=== PATIENT | female | born 1970 | race Caucasian/White ===

== ENCOUNTER 2020-08-10 09:49 | Outpatient (REF) | payer OTHER, SELFPAY ==
[2020-08-12 19:52] LABS: TS Negative Control Passed; TS Panel A 0; TS Panel B 0; TS Positive Control Passed; TSpotTB Negative (SeeBelow)
== END 2020-08-10 09:50 | disposition home or self-care (01) ==
LOC: HO.HMGCLDS 09:49
PROVIDERS: PCP Internal Medicine; Visit Provider Nurse Practitioner Family
DX: Z11.7 Encounter for testing for latent tuberculosis infection (principal)
CPT/HCPCS: 36415; 86481

== ENCOUNTER → 2020-08-20 09:19 | Outpatient (BNVA) | payer OTHER, SELFPAY | PROVIDERS: PCP Internal Medicine; Visit Provider Advanced Practice Midwife | DX: Z01.419 Encounter for gynecological examination (general) (routine) without abnormal findings (principal); E66.9 Obesity, unspecified; N89.8 Other specified noninflammatory disorders of vagina | CPT/HCPCS: 87210 ==

== ENCOUNTER 2020-08-28 09:06 | Outpatient (REF) | payer OTHER, SELFPAY ==
--- NOTE | ~2020-08-28 | XR_ITS ---
EXAMINATION: XR HAND, LEFT CLINICAL INFORMATION: Thumb pain. COMPARISON: None TECHNIQUE: PA, lateral, and oblique views of the left hand. 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 Mild arthritic changes in some of the IP joints of the fingers, including the 2nd, 3rd, 5th DIP joint. No fracture or dislocation. XR/XR hand LT min 3V IMPRESSION: Arthritis as detailed above. 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
[2020-08-28 11:12] LABS: MANUAL DIFF FLAG NO
[2020-08-28 11:27] LABS: Glucose Urine UA >=1000 MG/DL (NEG); Leukocyte Esterase Urine NEG (NEG); Nitrite Urine NEG (NEG); PH 6.5 (5.0-8.0); Specific Gravity - Urine 1.015 (1.005-1.025); Urine Blood NEG (NEG); Urine Ketones NEG (NEG); Urine Protein NEG (NEG-TRACE)
[2020-08-28 11:29] LABS: Appearance Urine CLEAR; Color Urine YELLOW
[2020-08-28 11:32] LABS: Basophils Percent Auto 0.3 % (0-2); Eosinophils Absolute Auto 0.1 X10*3/uL (0.0-0.4); Eosinophils Percent Auto 1.4 % (0-4); Hematocrit 43.2 % (37-47); Hemoglobin 13.2 g/dl (12.0-16.0); Imm Gran Abs Auto 0.02 X10*3/uL (0.00-0.03); Imm Gran Pct Auto 0.3 % (0.0-0.4); Lymphocytes Percent Auto 25.9 % (20-40); Mean Corpuscular HGB Conc 30.6 g/dl (31.0-35.0); Mean Corpuscular Hemoglobin 22.5 pg (27.0-33.0); Mean Corpuscular Volume 73.6 fL (80-98); Mean Platelet Volume 11.1 fL (9.4-12.3); Monocytes Absolute Auto 0.6 X10*3/uL (0.1-1.2); Monocytes Percent Auto 7.9 % (2-11); Neutrophils Percent Auto 64.2 % (45-73); Platelet Count 221 X10*3/uL (160-400); Red Blood Count 5.87 X10*6/uL (4.20-5.50); White Blood Count 7.7 X10*3/uL (4.8-10.8)
[2020-08-28 12:17] LABS: RBC Urine 0-2 /HPF (0); Squamous Epithelial Cell Urine TRACE /LPF; WBC Urine 0 /HPF (0-4)
[2020-08-28 12:25] LABS: TSH reflex Free T4 1.32 uIU/mL (0.32-4.0); Vitamin D 25-OH Total 17.4 ng/mL (>30)
[2020-08-28 12:36] LABS: Alanine Aminotransferase 20 U/L (0-31); Albumin Level 3.8 g/dL (3.5-5.0); Alkaline Phosphatase 83 U/L (39-117); Anion Gap 12 (12-20); Aspartate Amino Transferase 16 U/L (5-31); Bilirubin Total 0.2 mg/dL (0.0-1.0); Blood Urea Nitrogen 17 mg/dL (9-16); Calcium 8.7 mg/dL (8.4-10.2); Carbon Dioxide 26 mmol/L (22-29); Chloride 103 mmol/L (96-108); Cholesterol 170 mg/dL; Estimated Glomerular Filt Rate > 60; Glucose Fasting 317 mg/dL (60-99); HDL Cholesterol 39 mg/dL; LDL Cholesterol Calculated 95 mg/dl; Potassium 4.4 mmol/L (3.3-5.1); Sodium 137 mmol/L (135-145); Total Protein 7.3 g/dL (6.5-8.0); Triglycerides 183 mg/dL
== END 2020-08-28 09:07 | disposition home or self-care (01) ==
LOC: HO.HMGCLDS 09:06
PROVIDERS: PCP Internal Medicine; Visit Provider Internal Medicine
DX: M79.645 Pain in left finger(s) (principal); D50.9 Iron deficiency anemia, unspecified; I10 Essential (primary) hypertension; N85.02 Endometrial intraepithelial neoplasia [EIN]; E11.9 Type 2 diabetes mellitus without complications; E78.5 Hyperlipidemia, unspecified; E66.01 Morbid (severe) obesity due to excess calories; Z68.41 Body mass index [BMI] 40.0-44.9, adult; E55.9 Vitamin D deficiency, unspecified
CPT/HCPCS: 36415; 73130; 80053; 80061; 81001; 82306; 84443; 85025

== ENCOUNTER 2020-09-17 08:12 | Emergency (ER) | payer OTHER, SELFPAY ==
--- NOTE | 2020-09-17 | ECG_ITS ---
Test Reason : CHEST PAIN Blood Pressure : / mmHG Vent. Rate : 093 BPM Atrial Rate : 093 BPM P-R Int : 156 ms QRS Dur : 078 ms QT Int : 360 ms P-R-T Axes : 022 006 026 degrees QTc Int : 447 ms Normal sinus rhythm Moderate voltage criteria for LVH, may be normal variant Borderline ECG When compared with ECG of 19-DEC-2019 07:46, No significant change was found Referred By: Jose Luis De Electronically Signed By:CANDIDO MORALES MD
--- NOTE | ~2020-09-17 | XR_ITS ---
EXAMINATION: XR CHEST CLINICAL INFORMATION: Chest pain COMPARISON: None TECHNIQUE: 2 views of the chest were obtained. FINDINGS: No significant abnormality is noted involving the heart, lungs, mediastinum, bony thorax or soft tissues. XR/XR chest 2V IMPRESSION: Unremarkable examination.
[2020-09-17 08:17] VITALS: BP 180/94; PULSE 94; RESP 18; TEMP 36.4; O2SAT 96; BMI 42.7
--- NOTE | 2020-09-17 09:13 | ED.CHESTPAIN ---
HPI - Chest Pain General Chief Complaint: Chest Pain Stated Complaint: chest pain Time Seen by Provider: 09/17/20 09:02 Source: patient Mode of arrival: ambulatory Limitations: no limitations History of Present Illness HPI narrative: 50-year-old female who presents emergency department for evaluation of chest pain. Patient states that she woke up at 6:00 a.m. and then shortly after awakening she developed pain in her chest. She points to her mid sternal area when asked to localize the pain. She describes it as a pressure pain which is intermittent lasting 5-10 minutes but then recurs. The pain is not related to activity level. She states the pain is 6/10 at its worse and 4 of 10 here in the emergency department. The pain is worse if she presses on her chest which she takes a deep breath in and out. She denied radiation of the pain to her neck, jaw, arms or back, she denied nausea, vomiting, diaphoresis or lightheadedness associated with the pain. She states that she does have mild shortness of breath but no dyspnea on exertion. She denies any pain or swelling in her lower extremities and she has not been on any long trips. This is a 1st episode of this type pain. The patient has been vaccinated for COVID-19 and she has received 2 shots. Related Data Home Medications Medication Instructions Recorded Confirmed vbiifmtfpd-nnuoqkzfqbufe-nicsunpu 1 cap PO Q8H PRN 05/05/20 05/05/20 50 mg-300 mg-40 mg capsule cholecalciferol (vitamin D3) 50 50 mcg PO DAILY 05/05/20 05/05/20 mcg (2,000 unit) capsule lisinopril 10 mg tablet 10 mg PO DAILY 05/05/20 05/05/20 metformin 500 mg tablet,extended 1,000 mg PO BID tab 05/05/20 05/05/20 release 24 hr topiramate 25 mg tablet 25 mg PO BID 05/05/20 05/05/20 sumatriptan succinate 100 mg tablet See Rx Instructions PO .COMPLEX 05/06/20 05/06/20 Previous Rx's Medication Instructions Recorded clotrimazole-betamethasone 1 1 appl TOPICAL BID PRN 7 Days #45 g 08/20/20 %-0.05 % topical cream fluconazole 150 mg tablet 150 mg PO ONCE PRN 1 Days #1 tab 08/20/20 Allergies Allergy/AdvReac Type Severity Reaction Status Date / Time No Known Allergies Allergy Verified 08/20/20 09:33 Review of Systems Review of Systems: Yes all other systems are reviewed and are negative [facility] Past Medical History Source: unable to obtain Medical History Benign essential hypertension Complex endometrial hyperplasia with atypia Dyslipidemia Iron deficiency anemia Morbid obesity with BMI of 40.0-44.9, adult Nonintractable headache Type 2 diabetes mellitus without complication, with no history of insulin use Vitamin D deficiency Surgical History History of section History of knee surgery History of total abdominal hysterectomy and bilateral salpingo-oophorectomy (~01/20/20) History of tubal ligation Family History Family History Father Hypertension Diabetes Mother Lupus Maternal Grandmother Uterine cancer Maternal Aunt Breast cancer Paternal Grandmother Uterine cancer Social History Social History Smoking Status: Never smoker Advance Directives: No Advance Directives Information Provided: No Physical Exam Vital Signs: Vital Signs: Last Vital Signs Temp 97.6 F 09/17/20 08:17 Pulse 87 09/17/20 10:00 Resp 18 09/17/20 08:17 BP 124/79 09/17/20 10:00 Pulse Ox 96 09/17/20 08:17 Body Mass Index 42.7 Const: General: cooperative Nutritional Appearance: obese morbidly obese Orientation/consciousness: oriented to person and oriented to place Limitations: no limitations HENMT: Head: Yes normal to inspection, Yes normocephalic and Yes atraumatic Ears: external ears normal General nose exam: Normal external nose present Face and sinus: Yes normal facial exam Mouth: Normal oral and palatal mucosa present Throat: Yes posterior oropharynx normal Eyes: Periorbital: periorbital findings normal Eyelids: Yes eyelids normal Conjunctivae: conjunctivae normal Sclerae: sclerae normal Corneas: corneas normal Pupils: Equal, round and reactive pupils present Direct Ophthalmoscopy: normal light reflex Neck: Neck: Yes full ROM, Yes no lymphadenopathy, Yes no meningeal signs, Yes trachea midline and Yes supple Chest: Other: Tenderness with palpation of the mid sternum which reproduces her pain, also tenderness with palpation over the costochondral joints bilaterally Chest palpation & inspection: normal inspection of the chest Resp: Effort & Inspection: normal respiratory effort and able to speak in complete sentences Auscultation: clear to auscultation bilaterally Cardio: Rate: regular rate Rhythm: regular rhythm Heart sounds: S1 normal heart sound present, S2 normal heart sound present and no murmurs GI: Inspection: Yes normal to inspection Palpation (GI): Soft to palpation, nontender, no guarding, not rigid and No hepatosplenomegaly present : General: Yes no CVA tenderness Back/Spine/Pelvis: Back: no CVA tenderness Cervical Spine: normal cervical lordosis Thoracic/Lumbar Spine: thoracic and lumbar spine normal to inspection Skin: Lesions: no lesions Rashes: no rashes Wounds: no wounds Neuro: General: oriented to person, oriented to place and no meningeal signs Cranial nerves: Yes CN's II-XII intact bilaterally and Yes Equal, round and reactive pupils present Cognition (Neuro): normal cognition Motor exam (neuro): 5/5 motor strength present throughout Extrem: General: Yes normal to inspection and Yes full ROM Psych: Appearance: well kempt Mental Status: mental status grossly normal Speech and movement: Normal speech and movement present Affect: normal affect Attitude: cooperative Thought process: Normal thought process present Thought content: Normal thought content present Course Course Course Narrative: 50-year-old female with a history of diabetes, hyperlipidemia and obesity who presents emergency department for evaluation intermittent chest pain that began at 6:00 a.m., associated with shortness of breath with no other symptoms. Physical examination did reveal chest wall tenderness otherwise was unremarkable. Twelve EKG revealed sinus rhythm with no evidence of ischemia or infarction. I did order CBC, CMP, EKG, chest x-ray, and troponin on this patient. An IV was inserted by the nurse and she was ordered to get Toradol 30 mg IV for her pain. 1054: The patient states she did get some improvement with the Toradol IV. The patient's laboratory evaluation was unremarkable with a nondetectable troponin. Chest x-ray was unremarkable. The patient will be discharged home with printed instructions on costochondritis, she was advised to take Tylenol and ibuprofen for pain and to follow-up with her doctor for re-evaluation. MDM - Chest Pain Lab Data Result diagrams: 09/17/20 09:20 09/17/20 09:20 Labs: Lab Results 09/17/20 09/17/20 09/17/20 Range/Units 09:20 09:20 09:20 WBC 7.1 (4.8-10.8) X10*3/uL RBC 5.95 H (4.20-5.50) X10*6/uL Hgb 13.3 (12.0-16.0) g/dl Hct 44.0 (37-47) % MCV 73.9 L (80-98) fL MCH 22.4 L (27.0-33.0) pg MCHC 30.2 L (31.0-35.0) g/dl RDW 15.1 (11.0-16.0) % Plt Count 213 (160-400) X10*3/uL MPV 10.3 (9.4-12.3) fL Immature Gran % (Auto) 0.1 (0.0-0.4) % Neut % (Auto) 65.4 (45-73) % Lymph % (Auto) 24.7 (20-40) % [place] % (Auto) 8.0 (2-11) % Eos % (Auto) 1.4 (0-4) % Baso % (Auto) 0.4 (0-2) % Lymph # (Auto) 1.8 (1.2-4.9) X10*3/uL [place] # (Auto) 0.6 (0.1-1.2) X10*3/uL Eos # (Auto) 0.1 (0.0-0.4) X10*3/uL Baso # (Auto) 0.0 (0.0-0.2) X10*3/uL Abs Immat Gran (auto) 0.01 (0.00-0.03) X10*3/uL Absolute Neuts (auto) 4.7 (2.0-8.3) X10*3/uL Absolute Nucleated RBC 0.000 (0.0-0.012) X10*3/uL Nucleated RBC % (auto) 0.0 (0.0-0.2) /100WBC Sodium 135 (135-145) mmol/L Potassium 4.8 (3.3-5.1) mmol/L Chloride 102 (96-108) mmol/L Carbon Dioxide 24 (22-29) mmol/L Anion Gap 14 (12-20) BUN 20 H (9-16) mg/dL Creatinine 0.78 (0.5-1.4) mg/dL Estim Creat Clear Calc 110.1 Estimated GFR > 60 Random Glucose 248 H (60-115) mg/dL Calcium 8.3 L (8.4-10.2) mg/dL Total Bilirubin 0.4 (0.0-1.0) mg/dL AST 27 D (5-31) U/L ALT 21 (0-31) U/L Alkaline Phosphatase 87 (39-117) U/L Troponin I High Sens < 3.5 (<3.5-17.0) ng/L Total Protein 7.5 (6.5-8.0) g/dL Albumin 3.7 (3.5-5.0) g/dL ECG Data ECG #1: Attestation: I personally reviewed and interpreted this ECG as follows: Interpretation: 0826: Normal sinus rhythm with rate of 93, normal [place], QRS and QTC intervals, no ST segment elevation, no ST segment depression, nonspecific T-wave abnormalities, no old EKG for comparison, no evidence for infarction or ischemia. Discharge Plan Discharge Clinical Impression: Acute costochondritis Patient Disposition: Home, Self-Care Instructions: Costochondritis (ED) Additional Instructions: Your laboratory evaluation was normal with a nondetectable troponin which is encouraging and suggests that your pain is not related to your heart. The chest x-ray and EKG were unremarkable. Your symptoms are consistent with costochondritis (inflammation of the joints of the chest wall). Follow the costochondritis instructions. Take ibuprofen 200 mg pills, 3 pills every 6 hours as needed for pain. Take Tylenol (acetaminophen) 500 mg pills, 2 pills every 4 to 6 hours as needed for pain. Follow-up with your doctor in 2 days. Please return to the emergency department if your symptoms get worse or if you develop any symptoms that are concerning to you. Prescriptions: No Action lisinopril 10 mg tablet 10 mg PO DAILY RF: 0 metformin 500 mg tablet extended release 24 hr 1,000 mg PO BID RF: 0 topiramate 25 mg tablet 25 mg PO BID RF: 0 towmeppkjd-fjnwwqgoofzil-fnin [Fioricet] 50-300-40 mg capsule 1 cap PO Q8H PRN (Reason: headache) RF: 0 cholecalciferol (vitamin D3) 50 mcg (2,000 unit) capsule 50 mcg PO DAILY RF: 0 sumatriptan succinate 100 mg tablet See Rx Instructions PO .COMPLEX RF: 0 fluconazole [Diflucan] 150 mg tablet 150 mg PO ONCE PRN (Reason: personal) 1 Days Qty: 1 RF: 1 clotrimazole-betamethasone 1-0.05 % cream 1 appl topical BID PRN (Reason: itching) 7 Days Qty: 45 RF: 0
[2020-09-17] MEDS: Ketorolac Tromethamine 30 MG/ML VIAL IVPUSH (09:26)
[2020-09-17 09:28] LABS: MANUAL DIFF FLAG NO
[2020-09-17 09:31] LABS: Basophils Percent Auto 0.4 % (0-2); Eosinophils Absolute Auto 0.1 X10*3/uL (0.0-0.4); Eosinophils Percent Auto 1.4 % (0-4); Hemoglobin 13.3 g/dl (12.0-16.0); Imm Gran Abs Auto 0.01 X10*3/uL (0.00-0.03); Imm Gran Pct Auto 0.1 % (0.0-0.4); Lymphocytes Absolute Auto 1.8 X10*3/uL (1.2-4.9); Lymphocytes Percent Auto 24.7 % (20-40); Mean Corpuscular HGB Conc 30.2 g/dl (31.0-35.0); Mean Corpuscular Hemoglobin 22.4 pg (27.0-33.0); Mean Corpuscular Volume 73.9 fL (80-98); Mean Platelet Volume 10.3 fL (9.4-12.3); Monocytes Absolute Auto 0.6 X10*3/uL (0.1-1.2); Neutrophils Absolute Auto 4.7 X10*3/uL (2.0-8.3); Neutrophils Percent Auto 65.4 % (45-73); Platelet Count 213 X10*3/uL (160-400); Red Blood Count 5.95 X10*6/uL (4.20-5.50); Red Cell Distribution Width 15.1 % (11.0-16.0); White Blood Count 7.1 X10*3/uL (4.8-10.8)
[2020-09-17 09:56] LABS: Alanine Aminotransferase 21 U/L (0-31); Albumin Level 3.7 g/dL (3.5-5.0); Alkaline Phosphatase 87 U/L (39-117); Anion Gap 14 (12-20); Aspartate Amino Transferase 27 U/L (5-31); Bilirubin Total 0.4 mg/dL (0.0-1.0); Blood Urea Nitrogen 20 mg/dL (9-16); Calcium 8.3 mg/dL (8.4-10.2); Carbon Dioxide 24 mmol/L (22-29); Chloride 102 mmol/L (96-108); Creatinine Clr Calc Pharmacy 110.1; Estimated Glomerular Filt Rate > 60; Glucose Random 248 mg/dL (60-115); Potassium 4.8 mmol/L (3.3-5.1); Sodium 135 mmol/L (135-145); Total Protein 7.5 g/dL (6.5-8.0)
[2020-09-17 09:58] LABS: Troponin-I High Sensitivity < 3.5 ng/L (<3.5-17.0)
[2020-09-17 10:00] VITALS: BP 124/79; PULSE 87
== END 2020-09-17 11:30 | disposition home or self-care (01) ==
PROVIDERS: Emergency Provider Emergency Medicine Emergency Medical Services; PCP Internal Medicine
DX: M94.0 Chondrocostal junction syndrome [Tietze] (principal); I10 Essential (primary) hypertension; E11.9 Type 2 diabetes mellitus without complications; E78.5 Hyperlipidemia, unspecified; D50.9 Iron deficiency anemia, unspecified; E66.01 Morbid (severe) obesity due to excess calories
CPT/HCPCS: 36415; 71046; 80053; 84484; 85025; 93005; 96374; 99283; 99284; J1885

== ENCOUNTER 2020-11-06 07:49 | Outpatient (REF) | payer OTHER, SELFPAY ==
[2020-11-06 11:16] LABS: Glucose Urine UA NEG (NEG); Leukocyte Esterase Urine NEG (NEG); Nitrite Urine NEG (NEG); PH 5.5 (5.0-8.0); Specific Gravity - Urine >= 1.030 (1.005-1.025); Urine Blood NEG (NEG); Urine Ketones NEG (NEG); Urine Protein NEG (NEG-TRACE)
[2020-11-06 11:18] LABS: Appearance Urine CLOUDY; Color Urine YELLOW
[2020-11-06 12:13] LABS: TSH reflex Free T4 1.62 uIU/mL (0.32-4.0)
[2020-11-06 12:19] LABS: Alanine Aminotransferase 28 U/L (0-31); Alkaline Phosphatase 74 U/L (39-117); Anion Gap 13 (12-20); Aspartate Amino Transferase 25 U/L (5-31); Bilirubin Total 0.6 mg/dL (0.0-1.0); Blood Urea Nitrogen 19 mg/dL (9-16); Calcium 8.6 mg/dL (8.4-10.2); Carbon Dioxide 23 mmol/L (22-29); Chloride 106 mmol/L (96-108); Cholesterol 170 mg/dL; Estimated Glomerular Filt Rate > 60; Glucose Fasting 168 mg/dL (60-99); HDL Cholesterol 42 mg/dL; LDL Cholesterol Calculated 101 mg/dl; Potassium 4.4 mmol/L (3.3-5.1); Sodium 138 mmol/L (135-145); Total Protein 7.3 g/dL (6.5-8.0); Triglycerides 139 mg/dL
[2020-11-06 12:35] LABS: Estimated Average Glucose 240 mg/dL
[2020-11-07 06:22] LABS: C Peptide 4.94 ng/mL (0.80-3.85)
[2020-11-11 13:57] LABS: Glutamic acid decarboxylase Ab <5 IU/mL (<5)
== END 2020-11-06 07:50 | disposition home or self-care (01) ==
LOC: HO.HMGCLDS 07:49
PROVIDERS: PCP Internal Medicine; Visit Provider Internal Medicine
DX: E11.9 Type 2 diabetes mellitus without complications (principal); I10 Essential (primary) hypertension; E78.00 Pure hypercholesterolemia, unspecified
CPT/HCPCS: 36415; 80053; 80061; 81003; 83036; 84443; 84681; 86341

== ENCOUNTER 2021-01-05 08:23 | Outpatient (REF) | payer OTHER, SELFPAY ==
--- NOTE | ~2021-01-05 | XR_ITS ---
EXAMINATION: XR HIP, LEFT CLINICAL INFORMATION: Pain in the left hip COMPARISON: X-rays of the abdomen and pelvis 2019 TECHNIQUE: Two views of the left hip. FINDINGS: Bones and soft tissues are normal. No fracture. Alignment is anatomic. Hip joint space is maintained. XR/XR hip LT min 2V IMPRESSION: Normal left hip.
[2021-01-05 11:08] LABS: MANUAL DIFF FLAG NO
[2021-01-05 11:21] LABS: Basophils Percent Auto 0.4 % (0-2); Eosinophils Absolute Auto 0.1 X10*3/uL (0.0-0.4); Eosinophils Percent Auto 1.3 % (0-4); Hematocrit 43.8 % (37-47); Hemoglobin 13.3 g/dl (12.0-16.0); Imm Gran Abs Auto 0.03 X10*3/uL (0.00-0.03); Imm Gran Pct Auto 0.4 % (0.0-0.4); Lymphocytes Absolute Auto 1.6 X10*3/uL (1.2-4.9); Lymphocytes Percent Auto 19.3 % (20-40); Mean Corpuscular HGB Conc 30.4 g/dl (31.0-35.0); Mean Corpuscular Hemoglobin 22.6 pg (27.0-33.0); Mean Corpuscular Volume 74.5 fL (80-98); Mean Platelet Volume 10.5 fL (9.4-12.3); Monocytes Absolute Auto 0.6 X10*3/uL (0.1-1.2); Monocytes Percent Auto 7.5 % (2-11); Neutrophils Absolute Auto 5.9 X10*3/uL (2.0-8.3); Neutrophils Percent Auto 71.1 % (45-73); Platelet Count 230 X10*3/uL (160-400); Red Blood Count 5.88 X10*6/uL (4.20-5.50); Red Cell Distribution Width 16.4 % (11.0-16.0); White Blood Count 8.3 X10*3/uL (4.8-10.8)
[2021-01-05 11:26] LABS: Glucose Urine UA NEG (NEG); Leukocyte Esterase Urine NEG (NEG); Nitrite Urine NEG (NEG); PH 5.5 (5.0-8.0); Specific Gravity - Urine >= 1.030 (1.005-1.025); Urine Blood NEG (NEG); Urine Ketones NEG (NEG); Urine Protein NEG (NEG-TRACE)
[2021-01-05 11:29] LABS: Appearance Urine TURBID; Color Urine YELLOW
[2021-01-05 11:37] LABS: Estimated Average Glucose 174 mg/dL; Hemoglobin A1c % 7.7 %
[2021-01-05 11:40] LABS: Creatinine Urine 230.93 mg/dL
[2021-01-05 11:53] LABS: Alanine Aminotransferase 33 U/L (0-31); Albumin Level 3.9 g/dL (3.5-5.0); Alkaline Phosphatase 57 U/L (39-117); Anion Gap 16 (12-20); Aspartate Amino Transferase 30 U/L (5-31); Bilirubin Total 0.6 mg/dL (0.0-1.0); Blood Urea Nitrogen 18 mg/dL (9-16); Carbon Dioxide 23 mmol/L (22-29); Chloride 105 mmol/L (96-108); Cholesterol 159 mg/dL; Estimated Glomerular Filt Rate > 60; Glucose Fasting 131 mg/dL (60-99); HDL Cholesterol 41 mg/dL; LDL Cholesterol Calculated 96 mg/dl; Potassium 4.6 mmol/L (3.3-5.1); Sodium 139 mmol/L (135-145); Total Protein 7.4 g/dL (6.5-8.0); Triglycerides 111 mg/dL
[2021-01-05 11:56] LABS: TSH reflex Free T4 1.44 uIU/mL (0.32-4.0); Vitamin D 25-OH Total 29.4 ng/mL (>30)
== END 2021-01-05 08:24 | disposition home or self-care (01) ==
LOC: HO.HMGCX 08:23
PROVIDERS: PCP Internal Medicine; Visit Provider Internal Medicine
DX: M25.552 Pain in left hip (principal); E55.9 Vitamin D deficiency, unspecified; D50.9 Iron deficiency anemia, unspecified; I10 Essential (primary) hypertension; E11.9 Type 2 diabetes mellitus without complications; E78.5 Hyperlipidemia, unspecified; E66.01 Morbid (severe) obesity due to excess calories; Z68.41 Body mass index [BMI] 40.0-44.9, adult
CPT/HCPCS: 36415; 73502; 80053; 80061; 81003; 82043; 82306; 83036; 84443; 85025

== ENCOUNTER 2021-06-04 08:07 | Outpatient (REF) | payer OTHER, SELFPAY ==
--- NOTE | ~2021-06-04 | XR_ITS ---
EXAMINATION: XR KNEE, LEFT CLINICAL INFORMATION: Pain left knee COMPARISON: None TECHNIQUE: Four views of the left knee. FINDINGS: There is a total left knee prosthesis with prosthetic components in satisfactory alignment. There is no visible acute fracture, dislocation or loosening. No abnormal joint effusion seen. The soft tissues are normal. XR/XR knee LT 4V IMPRESSION: Total left knee prosthesis in satisfactory alignment. No visible acute fracture or dislocation seen.
[2021-06-04 11:50] LABS: Appearance Urine CLEAR; Color Urine YELLOW; Glucose Urine UA NEG (NEG); Leukocyte Esterase Urine NEG (NEG); Nitrite Urine NEG (NEG); Specific Gravity - Urine 1.025 (1.005-1.025); Urine Blood NEG (NEG); Urine Ketones NEG (NEG); Urine Protein NEG (NEG-TRACE)
[2021-06-04 11:54] LABS: MANUAL DIFF FLAG NO
[2021-06-04 12:02] LABS: Basophils Percent Auto 0.3 % (0-2); Eosinophils Absolute Auto 0.1 X10*3/uL (0.0-0.4); Eosinophils Percent Auto 2.3 % (0-4); Hematocrit 41.8 % (37.0-47.0); Hemoglobin 12.9 g/dl (12.0-16.0); Imm Gran Abs Auto 0.01 X10*3/uL (0.00-0.03); Imm Gran Pct Auto 0.2 % (0.0-0.4); Lymphocytes Absolute Auto 1.5 X10*3/uL (1.2-4.9); Mean Corpuscular HGB Conc 30.9 g/dl (31.0-35.0); Mean Corpuscular Hemoglobin 23.2 pg (27.0-33.0); Mean Platelet Volume 10.8 fL (9.4-12.3); Monocytes Absolute Auto 0.9 X10*3/uL (0.1-1.2); Monocytes Percent Auto 14.1 % (2-11); Neutrophils Absolute Auto 3.5 x10*3/uL (2.0-8.3); Neutrophils Percent Auto 58.1 % (45-73); Platelet Count 214 X10*3/uL (160-400); Red Blood Count 5.57 X10*6/uL (4.20-5.50); Red Cell Distribution Width 15.3 % (11.0-16.0)
[2021-06-04 12:04] LABS: Estimated Average Glucose 157 mg/dL; Hemoglobin A1c % 7.1 %
[2021-06-04 12:23] LABS: Alanine Aminotransferase 26 U/L (0-31); Albumin Level 3.9 g/dL (3.5-5.0); Alkaline Phosphatase 54 U/L (39-117); Anion Gap 12 (12-20); Aspartate Amino Transferase 28 U/L (5-31); Bilirubin Total 0.5 mg/dL (0.0-1.0); Blood Urea Nitrogen 18 mg/dL (9-16); Calcium 8.9 mg/dL (8.4-10.2); Carbon Dioxide 23 mmol/L (22-29); Chloride 107 mmol/L (96-108); Cholesterol 156 mg/dL; Estimated Glomerular Filt Rate > 60; Glucose Fasting 127 mg/dL (60-99); HDL Cholesterol 37 mg/dL; LDL Cholesterol Calculated 100 mg/dl; Potassium 4.2 mmol/L (3.3-5.1); Sodium 138 mmol/L (135-145); Total Protein 7.4 g/dL (6.5-8.0); Triglycerides 99 mg/dL
[2021-06-04 12:29] LABS: Creatinine Urine 101.46 mg/dL; Microalbum/Creatinine Ratio Ur 5.9 ug/mg cr
[2021-06-04 12:30] LABS: TSH reflex Free T4 1.42 uIU/mL (0.32-4.0); Vitamin D 25-OH Total 37.6 ng/mL (>30)
== END 2021-06-04 08:08 | disposition home or self-care (01) ==
LOC: HO.HMGCX 08:07
PROVIDERS: PCP Internal Medicine; Visit Provider Internal Medicine
DX: E11.9 Type 2 diabetes mellitus without complications (principal); D50.9 Iron deficiency anemia, unspecified; I10 Essential (primary) hypertension; E78.5 Hyperlipidemia, unspecified; E78.00 Pure hypercholesterolemia, unspecified; E55.9 Vitamin D deficiency, unspecified; E66.01 Morbid (severe) obesity due to excess calories; Z68.41 Body mass index [BMI] 40.0-44.9, adult; M25.562 Pain in left knee; Z96.652 Presence of left artificial knee joint
CPT/HCPCS: 36415; 73564; 80053; 80061; 81003; 82043; 82306; 83036; 84443; 85025

== ENCOUNTER 2021-06-09 12:46 | Outpatient (REF) | payer OTHER, SELFPAY ==
--- NOTE | ~2021-06-09 | XR_ITS ---
EXAMINATION: LEFT FOOT AND ANKLE X-RAY CLINICAL INFORMATION: Pain COMPARISON: None TECHNIQUE: 3 views of the left foot and 3 views of the left ankle FINDINGS: Left foot: Bone alignment is normal. No fracture or dislocation is seen. Joint spaces are normal. There are small calcaneal spurs. Soft tissues are otherwise normal. Ankle: Bone alignment is normal. No fracture or dislocation is seen. The ankle mortise is normal. Soft tissues are normal. XR/XR ankle LT min 3V IMPRESSION: Calcaneal spurs otherwise unremarkable exam.
--- NOTE | ~2021-06-09 | XR_ITS ---
EXAMINATION: LEFT FOOT AND ANKLE X-RAY CLINICAL INFORMATION: Pain COMPARISON: None TECHNIQUE: 3 views of the left foot and 3 views of the left ankle FINDINGS: Left foot: Bone alignment is normal. No fracture or dislocation is seen. Joint spaces are normal. There are small calcaneal spurs. Soft tissues are otherwise normal. Ankle: Bone alignment is normal. No fracture or dislocation is seen. The ankle mortise is normal. Soft tissues are normal. XR/XR foot LT min 3V IMPRESSION: Calcaneal spurs otherwise unremarkable exam.
== END 2021-06-09 12:47 | disposition home or self-care (01) ==
LOC: HO.HMGCX 12:46
PROVIDERS: PCP Internal Medicine; Visit Provider Internal Medicine
DX: M25.572 Pain in left ankle and joints of left foot (principal); M79.672 Pain in left foot; Z91.81 History of falling
CPT/HCPCS: 73610; 73630

== ENCOUNTER 2021-09-18 07:40 | Emergency (ER) | payer OTHER, SELFPAY ==
--- NOTE | ~2021-09-18 | CT_ITS ---
EXAMINATION: CT ANGIOGRAM OF THE CHEST WITH AND WITHOUT CONTRAST (CT PULMONARY ANGIOGRAM FOR PE) CLINICAL INFORMATION: Reason for Exam sob COMPARISON: Chest x-ray of September 17, 2020 TECHNIQUE: Prior to contrast administration, noncontrast localization images were obtained. Subsequently, multidetector volumetric imaging was performed from the thoracic inlet to below the diaphragms following the administration of 65 mL Omnipaque 350 intravenous contrast. No contrast reaction reported Sagittal, coronal, and MIP oblique sagittal reformatted images were obtained on the CT workstation, uploaded to PACS, and reviewed. This CT examination was performed using dose optimization techniques as appropriate, variously including the following: *Automated exposure control *Adjustment of mA and/or kV according to patient size (this includes techniques or standardized protocols for targeted exams where dose is matched to indication/reason for exam; i.e. extremities or head) *Use of iterative reconstruction technique Total exam dose-length product 392 mGy-cm FINDINGS: QUALITY OF STUDY/CONTRAST BOLUS: Satisfactory. PULMONARY ARTERIES: No central or segmental pulmonary emboli. THORACIC AORTA: No aneurysm or dissection. LUNG: Central airways are patent. No significant bronchial wall thickening is appreciated. No bronchiectasis. No confluent parenchymal disease. There are a few sub-4 mm density seen within the left lower lobe. PLEURA: No pleural effusion or pneumothorax. MEDIASTINUM: Normal heart size. No pericardial effusion. No hilar or mediastinal lymphadenopathy. No evidence of septal bowing or right heart strain. CHEST WALL/AXILLA: No axillary or internal mammary lymphadenopathy. OSSEOUS STRUCTURES: No suspicious destructive bony lesions identified. Multilevel degenerative disc disease present. UPPER ABDOMEN: There appears be fatty infiltration of the liver. No reflux of contrast into the hepatic veins to suggest elevated right heart pressures. CT/CT angio chest PE protocol IMPRESSION: No evidence of acute pulmonary artery embolus. No evidence of thoracic aortic aneurysm or dissection. VTE: negative
[2021-09-18 07:41] VITALS: BP 122/70; PULSE 88; RESP 18; TEMP 36.6; O2SAT 99; BMI 39.8
[2021-09-18 08:08] VITALS: BP 114/77; RESP 92; TEMP 36.8; O2SAT 97
--- NOTE | 2021-09-18 08:16 | ECG_ITS ---
Test Reason : RIGHT BACK PAIN Blood Pressure : / mmHG Vent. Rate : 082 BPM Atrial Rate : 082 BPM P-R Int : 176 ms QRS Dur : 082 ms QT Int : 370 ms P-R-T Axes : 023 011 025 degrees QTc Int : 432 ms Normal sinus rhythm Normal ECG When compared with ECG of 17-SEP-2020 08:26, No significant change was found Referred By: Nicki Sousa Electronically Signed By:GWEN DANIEL
--- NOTE | 2021-09-18 08:19 | ED_ITS ---
HPI - Back Pain/Injury General Chief Complaint: Back Pain/Injury Stated Complaint: back pain Time Seen by Provider: 09/18/21 08:16 History of Present Illness HPI Narrative: Patient is a 51-year-old female presents today with having right mid and lower back pain. The pain is sharp. No fever no chills no cough no congestion or upper respiratory symptoms. No diaphoresis. Worse with movement. Patient has been having this pain for the last 2 days. Has a history of blood clots in the past. No leg swelling. Not on blood thinners. No pain on urination. Patient is from home. No leg swelling. No recent travel. Not on hormonal replacement therapy Related Data Previous Rx's Medication Instructions Recorded cholecalciferol (vitamin D3) 50 50 mcg PO DAILY 90 Days #90 cap 10/04/20 mcg (2,000 unit) capsule sumatriptan succinate 100 mg tablet See Rx Instructions PO .COMPLEX 90 10/04/20 Days #30 tab humdzgyvci-hftafdzkraeta-guywnlxk 1 cap PO Q8H PRN 30 Days #90 cap 10/09/20 50 mg-300 mg-40 mg capsule (Fioricet) clotrimazole-betamethasone 1 1 appl TOPICAL BID PRN 7 Days #45 g 10/09/20 %-0.05 % topical cream lisinopril 10 mg tablet 10 mg PO DAILY #90 tab 02/22/21 metformin 500 mg tablet,extended 1,000 mg PO BID #360 tab 02/22/21 release 24 hr topiramate 25 mg tablet 25 mg PO BID #180 tab 02/22/21 sitagliptin 100 mg tablet (Januvia) 100 mg PO DAILY #90 tab 09/06/21 ibuprofen 400 mg tablet 400 mg PO Q6H PRN #20 tab 09/18/21 Allergies Allergy/AdvReac Type Severity Reaction Status Date / Time No Known Allergies Allergy Verified 06/09/21 10:47 Review of Systems Review of Systems: Positive back pain Yes all other systems are reviewed and are negative PMFSH Past Medical History Attestation statement: The following information was validated with the patient. Medical History Benign essential hypertension Complex endometrial hyperplasia with atypia Costochondritis Dyslipidemia Iron deficiency anemia Left hip pain Migraine Morbid obesity with BMI of 40.0-44.9, adult Nonintractable headache Osteoarthritis of right hand Type 2 diabetes mellitus without complication, with no history of insulin use Vitamin D deficiency Surgical History History of section History of knee surgery History of total abdominal hysterectomy and bilateral salpingo-oophorectomy (~01/20/20) History of tubal ligation Family History Family History Father Hypertension Diabetes Mother Lupus Maternal Grandmother Uterine cancer Maternal Aunt Breast cancer Paternal Grandmother Uterine cancer Social History Social History Housing: Apartment Alcohol intake: never Patient Tobacco Use Status: Never used Tobacco Second Hand Smoke Exposure: Yes Advance Directives: Yes Advance Directives Information Provided: Yes Advance Directives on File: No Patient : No service: No Current occupational status: employed 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 Oriented X3. No acute distress. Eyes: Pupils equal, round and reactive to light. ENT: Pharynx normal. Neck: Normal inspection. Neck supple. No lymph nodes noted. No crepitus CVS: Normal heart rate and rhythm. Pulses normal. Normal S1 and S2 Respiratory: No respiratory distress. Breath sounds normal. No Wheezing. No rales Abdomen: Soft and nontender. No rigidity. No distention. good BS x4 Skin: Skin warm and dry. Normal skin color. Normal skin turgor. Extremities: No lower extremity edema. Neurovascular intact to all extremities. No Lacerations. No Rash Neuro: Oriented X 3. No motor deficit. No sensory deficit. Moving all extermities. No slurred speech MDM - Back Pain/Injury MDM Narrative Medical decision making narrative: Patient's D-dimer was minimally elevated. Patient's electrolytes unremarkable. Urine showed no signs of infection. CT a of the chest was grossly negative for any acute evidence of PE. No pneumonia no pneumothorax no rib fracture. Will discharge patient home. In stable condition. Medical Records Attestation: I reviewed the patient's medical records. Lab Data Attestation: I reviewed the patient's lab results. Result diagrams: 09/18/21 09:38 09/18/21 09:38 Labs: Lab Results 09/18/21 09/18/21 09/18/21 Range/Units 09:38 09:38 09:38 WBC 9.2 (4.8-10.8) X10*3/uL RBC 5.26 (4.20-5.50) X10*6/uL Hgb 12.1 (12.0-16.0) g/dl Hct 39.6 (37.0-47.0) % MCV 75.3 L (80.0-98.0) fL MCH 23.0 L (27.0-33.0) pg MCHC 30.6 L (31.0-35.0) g/dl RDW 15.4 (11.0-16.0) % Plt Count 190 (160-400) X10*3/uL MPV 10.0 (9.4-12.3) fL Immature Gran % (Auto) 0.3 (0.0-0.4) % Neut % (Auto) 69.4 (45-73) % Lymph % (Auto) 22.2 (20-40) % [place] % (Auto) 6.1 (2-11) % Eos % (Auto) 1.7 (0-4) % Baso % (Auto) 0.3 (0-2) % Lymph # (Auto) 2.0 (1.2-4.9) X10*3/uL [place] # (Auto) 0.6 (0.1-1.2) X10*3/uL Eos # (Auto) 0.2 (0.0-0.4) X10*3/uL Baso # (Auto) 0.0 (0.0-0.2) X10*3/uL Abs Immat Gran (auto) 0.03 (0.00-0.03) X10*3/uL Absolute Neuts (auto) 6.3 (2.0-8.3) x10*3/uL Absolute Nucleated RBC 0.000 (0.0-0.012) X10*3/uL Nucleated RBC % (auto) 0.0 (0.0-0.2) /100WBC D-Dimer High Sensitivty 255 NG/ML Sodium 138 (135-145) mmol/L Potassium 4.4 (3.3-5.1) mmol/L Chloride 105 (96-108) mmol/L Carbon Dioxide 26 (22-29) mmol/L Anion Gap 11 L (12-20) BUN 15 (9-16) mg/dL Creatinine 0.77 (0.5-1.4) mg/dL Estim Creat Clear Calc 105.9 Estimated GFR > 60 Random Glucose 178 H (60-115) mg/dL Calcium 9.5 D (8.4-10.2) mg/dL Total Bilirubin 0.3 (0.0-1.0) mg/dL Direct Bilirubin 0.2 (0.0-0.5) mg/dL AST 18 (5-31) U/L ALT 22 (0-31) U/L Alkaline Phosphatase 49 (39-117) U/L Total Protein 7.0 (6.5-8.0) g/dL Albumin 3.7 (3.5-5.0) g/dL Lipase 67 (8-78) U/L Urine Color Urine Appearance Urine pH (5.0-8.0) Ur Specific [place] (1.005-1.025) Urine Protein (NEG-TRACE) MG/DL Urine Glucose (UA) (NEG) MG/DL Urine Ketones (NEG) MG/DL Urine Blood (NEG) Urine Nitrite (NEG) Ur Leukocyte Esterase (NEG) Urine RBC (0) /HPF Urine WBC (0-4) /HPF Ur Squamous Epith Cells /LPF Amorphous Sediment /LPF Urine Bacteria /LPF Urine Mucus /LPF 09/18/21 Range/Units 09:53 WBC (4.8-10.8) X10*3/uL RBC (4.20-5.50) X10*6/uL Hgb (12.0-16.0) g/dl Hct (37.0-47.0) % MCV (80.0-98.0) fL MCH (27.0-33.0) pg MCHC (31.0-35.0) g/dl RDW (11.0-16.0) % Plt Count (160-400) X10*3/uL MPV (9.4-12.3) fL Immature Gran % (Auto) (0.0-0.4) % Neut % (Auto) (45-73) % Lymph % (Auto) (20-40) % [place] % (Auto) (2-11) % Eos % (Auto) (0-4) % Baso % (Auto) (0-2) % Lymph # (Auto) (1.2-4.9) X10*3/uL [place] # (Auto) (0.1-1.2) X10*3/uL Eos # (Auto) (0.0-0.4) X10*3/uL Baso # (Auto) (0.0-0.2) X10*3/uL Abs Immat Gran (auto) (0.00-0.03) X10*3/uL Absolute Neuts (auto) (2.0-8.3) x10*3/uL Absolute Nucleated RBC (0.0-0.012) X10*3/uL Nucleated RBC % (auto) (0.0-0.2) /100WBC D-Dimer High Sensitivty NG/ML Sodium (135-145) mmol/L Potassium (3.3-5.1) mmol/L Chloride (96-108) mmol/L Carbon Dioxide (22-29) mmol/L Anion Gap (12-20) BUN (9-16) mg/dL Creatinine (0.5-1.4) mg/dL Estim Creat Clear Calc Estimated GFR Random Glucose (60-115) mg/dL Calcium (8.4-10.2) mg/dL Total Bilirubin (0.0-1.0) mg/dL Direct Bilirubin (0.0-0.5) mg/dL AST (5-31) U/L ALT (0-31) U/L Alkaline Phosphatase (39-117) U/L Total Protein (6.5-8.0) g/dL Albumin (3.5-5.0) g/dL Lipase (8-78) U/L Urine Color YELLOW Urine Appearance HAZY Urine pH 5.5 (5.0-8.0) Ur Specific [place] >= 1.030 H (1.005-1.025) Urine Protein NEG (NEG-TRACE) MG/DL Urine Glucose (UA) NEG (NEG) MG/DL Urine Ketones NEG (NEG) MG/DL Urine Blood NEG (NEG) Urine Nitrite NEG (NEG) Ur Leukocyte Esterase NEG (NEG) Urine RBC 0-2 (0) /HPF Urine WBC 0-2 (0-4) /HPF Ur Squamous Epith Cells 1+ /LPF Amorphous Sediment 1+ /LPF Urine Bacteria TRACE /LPF Urine Mucus 1+ /LPF Discharge Plan Discharge Clinical Impression: Back pain Patient Disposition: Home, Self-Care Instructions: Back Pain (ED) Prescriptions: New ibuprofen 400 mg tablet 400 mg PO Q6H PRN (Reason: pain) Qty: 20 0RF No Action cdsqfhelhr-dxrinwzjjdksr-ijrj [Fioricet] 50-300-40 mg capsule 1 cap PO Q8H PRN (Reason: headache) 30 Days Qty: 90 0RF clotrimazole-betamethasone 1-0.05 % cream 1 appl topical BID PRN (Reason: itching) 7 Days Qty: 45 0RF lisinopril 10 mg tablet 10 mg PO DAILY Qty: 90 1RF metformin 500 mg tablet extended release 24 hr 1,000 mg PO BID Qty: 360 1RF topiramate 25 mg tablet 25 mg PO BID Qty: 180 1RF Januvia 100 mg tablet 100 mg PO DAILY Qty: 90 0RF sumatriptan succinate 100 mg tablet See Rx Instructions PO .COMPLEX 90 Days Qty: 30 1RF Rx Instructions: take 1 tab at onset of headache; if no relief, may repeat 1 tab after at least 2 hrs; max = 2 tabs/24 hrs PO cholecalciferol (vitamin D3) 50 mcg (2,000 unit) capsule 50 mcg PO DAILY 90 Days Qty: 90 1RF Referrals: Hilario Keen MD [Primary Care Provider] - 2 days
[2021-09-18 09:43] LABS: MANUAL DIFF FLAG NO
[2021-09-18 09:44] LABS: Basophils Percent Auto 0.3 % (0-2); Eosinophils Absolute Auto 0.2 X10*3/uL (0.0-0.4); Eosinophils Percent Auto 1.7 % (0-4); Hematocrit 39.6 % (37.0-47.0); Hemoglobin 12.1 g/dl (12.0-16.0); Imm Gran Abs Auto 0.03 X10*3/uL (0.00-0.03); Imm Gran Pct Auto 0.3 % (0.0-0.4); Lymphocytes Percent Auto 22.2 % (20-40); Mean Corpuscular HGB Conc 30.6 g/dl (31.0-35.0); Mean Corpuscular Volume 75.3 fL (80.0-98.0); Monocytes Absolute Auto 0.6 X10*3/uL (0.1-1.2); Monocytes Percent Auto 6.1 % (2-11); Neutrophils Absolute Auto 6.3 x10*3/uL (2.0-8.3); Neutrophils Percent Auto 69.4 % (45-73); Platelet Count 190 X10*3/uL (160-400); Red Blood Count 5.26 X10*6/uL (4.20-5.50); Red Cell Distribution Width 15.4 % (11.0-16.0); White Blood Count 9.2 X10*3/uL (4.8-10.8)
[2021-09-18 09:53] LABS: D Dimer High Sensitivity 255 NG/ML
[2021-09-18 10:00] LABS: Alanine Aminotransferase 22 U/L (0-31); Albumin Level 3.7 g/dL (3.5-5.0); Alkaline Phosphatase 49 U/L (39-117); Anion Gap 11 (12-20); Aspartate Amino Transferase 18 U/L (5-31); Bilirubin Direct 0.2 mg/dL (0.0-0.5); Bilirubin Total 0.3 mg/dL (0.0-1.0); Blood Urea Nitrogen 15 mg/dL (9-16); Calcium 9.5 mg/dL (8.4-10.2); Carbon Dioxide 26 mmol/L (22-29); Chloride 105 mmol/L (96-108); Creatinine Clr Calc Pharmacy 105.9; Estimated Glomerular Filt Rate > 60; Glucose Random 178 mg/dL (60-115); Lipase 67 U/L (8-78); Potassium 4.4 mmol/L (3.3-5.1); Sodium 138 mmol/L (135-145)
[2021-09-18] MEDS: ondansetron HCL 4 MG/2 ML VIAL IVPUSH (10:01)
[2021-09-18 10:24] LABS: Appearance Urine HAZY; Color Urine YELLOW; Glucose Urine UA NEG (NEG); Leukocyte Esterase Urine NEG (NEG); Nitrite Urine NEG (NEG); PH 5.5 (5.0-8.0); Specific Gravity - Urine >= 1.030 (1.005-1.025); Urine Blood NEG (NEG); Urine Ketones NEG (NEG); Urine Protein NEG (NEG-TRACE)
[2021-09-18 10:42] LABS: Amorphous Sediment Urine 1+ /LPF; Bacteria Urine TRACE /LPF; Mucus Urine 1+ /LPF; RBC Urine 0-2 /HPF (0); Squamous Epithelial Cell Urine 1+ /LPF; WBC Urine 0-2 /HPF (0-4)
[2021-09-18 11:08] VITALS: BP 106/69; PULSE 76; RESP 18; TEMP 36.7; O2SAT 97
[2021-09-18] MEDS: iohexoL 350 MG/ML 100 ML INFUS..BTL IV (11:39)
== END 2021-09-18 15:00 | disposition home or self-care (01) ==
PROVIDERS: Emergency Provider Emergency Medicine Emergency Medical Services; PCP Internal Medicine
DX: M54.50 Low back pain, unspecified (principal); I10 Essential (primary) hypertension; E11.9 Type 2 diabetes mellitus without complications; E78.5 Hyperlipidemia, unspecified
CPT/HCPCS: 36415; 71275; 80048; 80076; 81001; 83690; 85025; 85379; 93005; 96374; 99284; 99285; J2405; Q9967

== ENCOUNTER 2022-10-06 08:34 | Outpatient (REF) | payer OTHER, SELFPAY ==
[2022-10-06 11:23] LABS: MANUAL DIFF FLAG NO
[2022-10-06 11:53] LABS: Appearance Urine Turbid; Color Urine Yellow; Glucose Urine UA Negative (Negative); Leukocyte Esterase Urine Negative (Negative); Nitrite Urine Negative (Negative); Specific Gravity - Urine 1.025 (1.005-1.025); Urine Blood Negative (Negative); Urine Ketones Negative (Negative); Urine Protein Negative (Neg-Trace)
[2022-10-06 11:53] LABS: Basophils Percent Auto 0.3 % (0-2); Eosinophils Absolute Auto 0.2 X10*3/uL (0.0-0.4); Eosinophils Percent Auto 1.9 % (0-4); Hemoglobin 12.1 g/dl (12.0-16.0); Imm Gran Abs Auto 0.02 X10*3/uL (0.00-0.03); Imm Gran Pct Auto 0.2 % (0.0-0.4); Lymphocytes Absolute Auto 2.1 X10*3/uL (1.2-4.9); Lymphocytes Percent Auto 21.9 % (20-40); Mean Corpuscular HGB Conc 30.3 g/dl (31.0-35.0); Mean Corpuscular Hemoglobin 22.9 pg (27.0-33.0); Mean Corpuscular Volume 75.6 fL (80.0-98.0); Mean Platelet Volume 10.7 fL (9.4-12.3); Monocytes Absolute Auto 0.7 X10*3/uL (0.1-1.2); Neutrophils Absolute Auto 6.4 x10*3/uL (2.0-8.3); Neutrophils Percent Auto 68.7 % (45-73); Platelet Count 236 X10*3/uL (160-400); Red Blood Count 5.29 X10*6/uL (4.20-5.50); Red Cell Distribution Width 14.7 % (11.0-16.0); White Blood Count 9.3 X10*3/uL (4.8-10.8)
[2022-10-06 12:10] LABS: Alanine Aminotransferase 17 U/L (0-31); Albumin Level 3.8 g/dL (3.5-5.0); Alkaline Phosphatase 57 U/L (39-117); Anion Gap 11 (12-20); Aspartate Amino Transferase 15 U/L (5-31); Bilirubin Total 0.4 mg/dL (0.0-1.0); Blood Urea Nitrogen 22 mg/dL (9-16); Calcium 8.9 mg/dL (8.4-10.2); Carbon Dioxide 26 mmol/L (22-29); Chloride 108 mmol/L (96-108); Cholesterol 173 mg/dL; Estimated Glomerular Filt Rate > 60; Glucose Fasting 103 mg/dL (60-99); HDL Cholesterol 44 mg/dL; LDL Cholesterol Calculated 114 mg/dl; Potassium 4.8 mmol/L (3.3-5.1); Sodium 140 mmol/L (135-145); Total Protein 7.1 g/dL (6.5-8.0); Triglycerides 75 mg/dL
[2022-10-06 12:27] LABS: Creatinine Urine 147.39 mg/dL; Microalbum/Creatinine Ratio Ur 5.4 ug/mg cr
[2022-10-06 12:33] LABS: TSH reflex Free T4 1.63 uIU/mL (0.32-4.0); Vitamin D 25-OH Total 31.4 ng/mL (>30)
[2022-10-06 13:05] LABS: Erythrocyte Sedimentation Rate 23 MM/HR (0-20)
== END 2022-10-06 08:35 | disposition home or self-care (01) ==
LOC: HO.HMGCLDS 08:34
PROVIDERS: PCP Internal Medicine; Visit Provider Internal Medicine
DX: E78.00 Pure hypercholesterolemia, unspecified (principal); E11.9 Type 2 diabetes mellitus without complications; R30.0 Dysuria; E55.9 Vitamin D deficiency, unspecified; M10.9 Gout, unspecified; I10 Essential (primary) hypertension
CPT/HCPCS: 36415; 80053; 80061; 81003; 82043; 82306; 84443; 84550; 85025; 85652

== ENCOUNTER 2023-02-08 11:48 | Outpatient (REF) | payer OTHER, SELFPAY ==
[2023-02-08 13:45] LABS: Appearance Urine Clear; Color Urine Yellow; Glucose Urine UA Negative (Negative); Leukocyte Esterase Urine Negative (Negative); Nitrite Urine Negative (Negative); PH 5.5 (5.0-9.0); Urine Blood Negative (Negative); Urine Ketones Negative (Negative); Urine Protein Negative (Neg-Trace)
[2023-02-08 13:48] LABS: MANUAL DIFF FLAG NO
[2023-02-08 13:55] LABS: Basophils Percent Auto 0.4 % (0-2); Eosinophils Absolute Auto 0.2 X10*3/uL (0.0-0.4); Eosinophils Percent Auto 1.7 % (0-4); Hematocrit 41.1 % (37.0-47.0); Hemoglobin 12.6 g/dl (12.0-16.0); Imm Gran Abs Auto 0.03 X10*3/uL (0.00-0.03); Imm Gran Pct Auto 0.3 % (0.0-0.4); Lymphocytes Absolute Auto 2.6 X10*3/uL (1.2-4.9); Lymphocytes Percent Auto 23.3 % (20-40); Mean Corpuscular HGB Conc 30.7 g/dl (31.0-35.0); Mean Corpuscular Hemoglobin 23.1 pg (27.0-33.0); Mean Corpuscular Volume 75.3 fL (80.0-98.0); Mean Platelet Volume 10.5 fL (9.4-12.3); Monocytes Absolute Auto 0.8 X10*3/uL (0.1-1.2); Monocytes Percent Auto 6.9 % (2-11); Neutrophils Absolute Auto 7.4 x10*3/uL (2.0-8.3); Neutrophils Percent Auto 67.4 % (45-73); Platelet Count 236 X10*3/uL (160-400); Red Blood Count 5.46 X10*6/uL (4.20-5.50); Red Cell Distribution Width 15.2 % (11.0-16.0)
[2023-02-08 14:07] LABS: Estimated Average Glucose 123 mg/dL; Hemoglobin A1c % 5.9 %
[2023-02-08 14:45] LABS: Creatinine Urine 132.06 mg/dL; Microalbum/Creatinine Ratio Ur 3.7 ug/mg cr
[2023-02-08 15:00] LABS: Alanine Aminotransferase 15 U/L (0-31); Albumin Level 3.9 g/dL (3.5-5.0); Alkaline Phosphatase 55 U/L (39-117); Anion Gap 13 (12-20); Aspartate Amino Transferase 13 U/L (5-31); Bilirubin Total 0.4 mg/dL (0.0-1.0); Blood Urea Nitrogen 17 mg/dL (9-16); Calcium 9.5 mg/dL (8.4-10.2); Carbon Dioxide 25 mmol/L (22-29); Chloride 108 mmol/L (96-108); Cholesterol 181 mg/dL; Estimated Glomerular Filt Rate > 60; Glucose Fasting 82 mg/dL (60-99); HDL Cholesterol 48 mg/dL; LDL Cholesterol Calculated 120 mg/dl; Potassium 4.3 mmol/L (3.3-5.1); Sodium 142 mmol/L (135-145); Total Protein 7.7 g/dL (6.5-8.0); Triglycerides 68 mg/dL
[2023-02-08 15:06] LABS: TSH reflex Free T4 1.55 uIU/mL (0.32-4.0); Vitamin D 25-OH Total 38.3 ng/mL (>30)
== END 2023-02-08 11:49 | disposition home or self-care (01) ==
LOC: HO.HMGCLDS 11:48
PROVIDERS: PCP Internal Medicine; Visit Provider Internal Medicine
DX: E11.9 Type 2 diabetes mellitus without complications (principal); E55.9 Vitamin D deficiency, unspecified; R30.0 Dysuria; E78.00 Pure hypercholesterolemia, unspecified; I10 Essential (primary) hypertension
CPT/HCPCS: 36415; 80053; 80061; 81003; 82043; 82306; 83036; 84443; 85025

== ENCOUNTER 2023-02-08 12:27 | Outpatient (AMB) | payer OTHER, SELFPAY ==
[2023-02-08 13:03] VITALS: BP 100/60; PULSE 84; O2SAT 97; BMI 37.5
--- NOTE | 2023-02-08 13:03 | MHC.PC.OV ---
Vital Signs 02/08/23 13:03 Height 5 ft 5 in Weight 225 lb 4 oz BMI 37.5 BP 100/60 Blood Pressure Location Lt brachial Position Sitting Pulse 84 Pulse Source Pulse Oximeter Pulse Oximetry (%) 97 Oxygen Delivery Method Room Air Intake Visit Reasons: DM, hyperlipidemia, HTN Administrative Services Coordinator Required: No Accompanied by: Self / Same As Patient Allergies No Known Allergies Allergy (Verified 02/08/23 13:27) Medication List - Last Reconciled 02/08/23 by Hilario Keen MD [id number] 50-300-40 mg (Fioricet) 1 cap PO Q8H PRN 30 days cholecalciferol (vitamin D3) 50 mcg PO DAILY 90 days clotrimazole-betamethasone 1-0.05 % 1 appl topical BID PRN 7 days ibuprofen 400 mg PO Q6H PRN indomethacin 50 mg PO TID PRN lisinopril 10 mg PO DAILY metformin ER 1,000 mg (2 x 500 mg) PO BID sitagliptin phosphate (Januvia) 100 mg PO DAILY sumatriptan succinate take 1 tab at onset of headache; if no relief, may repeat 1 tab after at least 2 hrs; max = 2 tabs/24 hrs PO 90 days tizanidine 4 mg PO Q8H PRN 10 days topiramate 25 mg PO BID triamcinolone acetonide 0.5% 1 appl topical TID PRN Tobacco use date assessed: 02/08/23 Dental Screening Dental Screen Date: 02/08/23 Did you have a dental visit in the last 12 months?: Yes Did you have a dental problem in the last 6 months where you did not have access to dental care?: No Was dental information given to patient?: Patient has dentist HPI DM, hyperlipidemia, HTN HPI Details Patient comes in today for her follow up visit States that she feels okay She denies any headaches or dizziness Denies any chest pains, no SOB No nausea/vomiting, no abdominal pain No change in bowel habits noted States that she forgot to get her follow up labs yesterday and just had them done a few minutes ago [facility] Medical History Benign essential hypertension Complex endometrial hyperplasia with atypia Costochondritis Dyslipidemia Iron deficiency anemia Left hip pain Migraine Morbid obesity with BMI of 40.0-44.9, adult Nonintractable headache Obesity (BMI 30-39.9) Osteoarthritis of right hand Type 2 diabetes mellitus without complication, with no history of insulin use Vitamin D deficiency Surgical History History of section History of knee surgery History of total abdominal hysterectomy and bilateral salpingo-oophorectomy (~01/20/20) History of tubal ligation Family History Father Hypertension Diabetes Mother Lupus Maternal Grandmother Uterine cancer Maternal Aunt Breast cancer Paternal Grandmother Uterine cancer Social History Housing: Apartment Alcohol intake: never Patient Tobacco Use Status: Never used Tobacco e-Cigarette/Vaping Use: Never Used Second Hand Smoke Exposure: Yes service: No Current occupational status: employed Current occupation: [employer] Cognitive needs: Yes (cane) Hearing needs: No Vision needs: Yes (glasses) Female Reproductive History Menstrual Age of Menarche: 14 Questionnaire PHQ-9 Over the last 2 weeks, how often have you been bothered by any of the following problems? 1. Little interest or pleasure in doing things: not at all 2. Feeling down, depressed, or hopeless: not at all 3. Trouble falling or staying asleep, or sleeping too much: not at all 4. Feeling tired or having little energy: not at all 5. Poor appetite or overeating: not at all 6. Feeling bad about yourself - or that you are a failure or have let yourself or your family down: not at all 7. Trouble concentrating on things, such as reading the newspaper or watching television: not at all 8. Moving or speaking so slowly that other people could have noticed. Or the opposite - being so fidgety or restless that you have been moving around a lot more than usual: not at all 9. Thoughts that you would be better off or of hurting yourself in some way: not at all Total score: 0 Depression Screening Interpretation: Negative 33403 - PHQ-9 Billing: Yes Source: Developed by Drs. David Harris, Katelynn Anthony Gutierrez and colleagues, with an educational mitra from [employer]. Thrive Questionnaire Date Thrive assessed: 02/08/23 I am a: Patient Within the past 12 months, did the food you bought not last and you didn't have the money to get more?: Never true Within the past 12 months, did you worry whether your food would run out before you got money to buy more?: Never true Do you have trouble paying for medicines?: No Do you have trouble getting transportation to medical appointments?: No Do you have trouble paying your heating and electricity bill?: No Do you have trouble taking care of your child, family member or friend?: No Do you have trouble with day-to-day activities such as bathing, preparing meals, shopping, managing finances, etc.?: No Are you currently unemployed and looking for a job?: No Are you interested in more education?: No Please select the resources that you would like help with: None Currently or been in a relationship where the following occur: no concerns reported AUDIT C Alcohol Use Questionnaire (AUDIT-C) 1. How often do you have a drink containing alcohol?: Never Total Score: 0 Score Reviewed/Action Taken: Yes SANA-7 AMB Questionnaire SANA-7 Date SANA - 7 assessed: 02/08/23 Feeling nervous, anxious, or on edge: 0 = Not at all Not being able to stop or control worryin = Not at all Worrying too much about different things: 0 = Not at all Trouble relaxin = Not at all Being so restless that it is hard to sit still: 0 = Not at all Becoming easily annoyed or irritable: 0 = Not at all Feeling afraid as if something awful might happen: 0 = Not at all Total SANA-7 score (0-4 normal; 5-9 mild; 10-14 moderate; 15-21 severe): 0 Source: Developed by Drs. David Harris, Anthony Pascal and colleagues, with an educational mitra from [employer]. Review of Systems Const Denies fatigue, Denies fever(s) and Denies headache(s) ENT Denies dysphagia, Denies dizziness, Denies otalgia, Denies headache(s), Denies neck pain, Denies odynophagia and Denies sore throat Card Denies chest pain, Denies rapid heart rate, Denies irregular heart rhythm, Denies palpitations and Denies dyspnea Resp Denies chest congestion, Denies cough and Denies dyspnea GI Denies abdominal pain, Denies constipation, Denies dysphagia, Denies heartburn, Denies diarrhea, Denies nausea, Denies odynophagia and Denies vomiting Denies urinary frequency and Denies dysuria Musc Denies back pain, Denies arthralgias and Denies neck pain Neuro Denies dizziness and Denies headache(s) Psych Denies anxiety Endo Denies fatigue and Denies palpitations Physical exam (Primary Care) Vital Signs: Last Vital Signs Pulse 84 02/08/23 13:03 BP 100/60 02/08/23 13:03 Pulse Ox 97 02/08/23 13:03 Oxygen Delivery Method Room Air 02/08/23 13:03 BMI result Body Mass Index 37.5 Tobacco/Smoking Status: Tobacco use Status Tobacco use date assessed 02/08/23 02/08/23 13:12 Patient Tobacco Use Status Never used Tobacco 02/08/23 13:12 e-Cigarette/Vaping Use Never Used 02/08/23 13:12 PHQ-9: PHQ-9 Score PHQ-9: Total score 0 02/08/23 13:12 Depression Screening Interpretation: Negative Thrive Assessment: Date of Thrive Assessment Date Thrive assessed 02/08/23 02/08/23 13:12 Currently or been in a relationship where the following occur: no concerns reported Const General: no acute distress and alert HENMT Ears: TM's normal bilaterally and EAC's normal Throat: Yes posterior oropharynx normal and Yes tonsils normal (no TP congestion) Neck Neck: Yes no lymphadenopathy and Yes supple Thyroid: Thyroid normal Resp Auscultation: clear to auscultation bilaterally, no rales and no wheezes Cardio Rate: regular rate Rhythm: regular rhythm Heart sounds: no murmurs GI Palpation (GI): Soft to palpation and nontender Auscultation: normal bowel sounds Skin Rashes: no rashes Extrem General: Yes no clubbing, cyanosis or edema Results AMB Hemoglobin A1c AMB Hemoglobin A1c 6.0 % Last Edit by Itz Horvath on 02/08/23 13:29 Assessment and Plan Assessment & Plan (1) Type 2 diabetes mellitus without complication, with no history of insulin use: Code(s): E11.9 - Type 2 diabetes mellitus without complications Plan: In-office HgbA1c done today is at 6.0% (was at 5.7% a few months ago) - goal is <7.0% Reinforced diabetic diet Continue Metformin ER 500 mg 2 tablets (1000 mg) BID and Januvia 100 mg QD (2) Benign essential hypertension: Code(s): I10 - Essential (primary) hypertension Plan: Reinforced low-sodium diet - goal is systolic BP of around 120 mm or less Continue Lisinopril 10 mg once a day (3) Dyslipidemia: Code(s): E78.5 - Hyperlipidemia, unspecified Plan: Results of her labs done a few minutes ago are currently NOT YET AVAILABLE for review - patient is advised that we will check back with her if anything unusual shows up on her labs when we review them later today Reinforced low cholesterol diet Will recheck her fasting lipids and labs in 4 months for follow up (4) Migraine: Code(s): G43.909 - Migraine, unspecified, not intractable, without status migrainosus Qualifiers: Migraine type: unspecified Status migrainosus presence: without status migrainosus Intractability: not intractable Qualified Code(s): G43.909 - Migraine, unspecified, not intractable, without status migrainosus Plan: Was diagnosed with migraine headaches by neurology a couple of years ago Continue Topiramate 25 mg twice a day for headache prophylaxis - headaches have been well-controlled on prophylactic Rx Continue Sumatriptan 100 mg PRN and Fioricet PRN for symptomatic relief (5) Iron deficiency anemia: Code(s): D50.9 - Iron deficiency anemia, unspecified Qualifiers: Iron deficiency anemia type: unspecified iron deficiency Qualified Code(s): D50.9 - Iron deficiency anemia, unspecified Plan: Corrected - H/H remained normal on her previous labs Continue Ferrous sulfate 200 mg QD Will continue to monitor her CBC regularly (6) Gout: Code(s): M10.9 - Gout, unspecified Qualifiers: Gout site: ankle Gout etiology: unspecified cause Chronicity: acute Laterality: right Qualified Code(s): M10.9 - Gout, unspecified Plan: Was diagnosed with gout in the right ankle at the walk-in clinic a few months ago; symptoms have since resolved with Tx with Indomethacin; has had no recurrence since Serum uric acid level was normal at 5.0 on her labs done a few months ago Reinforced low purine diet (7) Vitamin D deficiency: Code(s): E55.9 - Vitamin D deficiency, unspecified Plan: Corrected - continue Vitamin D3 2000 units QD (8) Obesity (BMI 30-39.9): Code(s): E66.9 - Obesity, unspecified Plan: Reinforced diet/exercise as tolerated/lose weight Plan Follow up in 4 months Orders: Orders Comprehensive [place]. Panel Fast 4 Months E78.00 - Pure hypercholesterolemia, unspecified Hemoglobin A1c 4 Months E11.9 - Type 2 diabetes mellitus without complications Lipid Panel 4 Months E78.00 - Pure hypercholesterolemia, unspecified Complete Blood Count Auto Diff 4 Months I10 - Essential (primary) hypertension AMB Hemoglobin A1c Today E11.9 - Type 2 diabetes mellitus without complications TSH reflex Free T4 4 Months E78.00 - Pure hypercholesterolemia, unspecified Uric Acid 4 Months M10.9 - Gout, unspecified Vitamin D 25-OH Total 4 Months E55.9 - Vitamin D deficiency, unspecified Microalbumin, Random (w Creat) 4 Months E11.9 - Type 2 diabetes mellitus without complications UA CC w/rflx Micro + Cult 4 Months R30.0 - Dysuria Coding Level of Care Code Est Pt Level 4 (53827) Diagnoses Type 2 diabetes mellitus without complication, with no history of insulin use E11.9 Benign essential hypertension I10 Dyslipidemia E78.5 Migraine G43.909 Migraine type: unspecified Status migrainosus presence: without status migrainosus Intractability: not intractable Iron deficiency anemia D50.9 Iron deficiency anemia type: unspecified iron deficiency Gout M10.9 Gout site: ankle Gout etiology: unspecified cause Chronicity: acute Laterality: right Vitamin D deficiency E55.9 Obesity (BMI 30-39.9) E66.9
== END 2023-02-08 13:37 | disposition home or self-care (01) ==
PROVIDERS: PCP Internal Medicine; Visit Provider Internal Medicine
DX: E11.69 Type 2 diabetes mellitus with other specified complication (principal); I10 Essential (primary) hypertension; G43.909 Migraine, unspecified, not intractable, without status migrainosus; E55.9 Vitamin D deficiency, unspecified; E78.5 Hyperlipidemia, unspecified; D50.9 Iron deficiency anemia, unspecified; M10.9 Gout, unspecified; E66.9 Obesity, unspecified
CPT/HCPCS: 83036; 99214

== ENCOUNTER 2023-05-30 09:34 | Outpatient (REF) | payer OTHER, SELFPAY ==
[2023-05-30 11:11] LABS: MANUAL DIFF FLAG NO
[2023-05-30 11:16] LABS: Appearance Urine Cloudy; Color Urine Yellow; Glucose Urine UA Negative (Negative); Leukocyte Esterase Urine Negative (Negative); Nitrite Urine Negative (Negative); Urine Blood Negative (Negative); Urine Ketones Negative (Negative); Urine Protein Negative (Neg-Trace)
[2023-05-30 11:22] LABS: Basophils Percent Auto 0.3 % (0-2); Eosinophils Absolute Auto 0.2 X10*3/uL (0.0-0.4); Eosinophils Percent Auto 1.8 % (0-4); Hematocrit 42.5 % (37.0-47.0); Hemoglobin 12.9 g/dl (12.0-16.0); Imm Gran Abs Auto 0.03 X10*3/uL (0.00-0.03); Imm Gran Pct Auto 0.3 % (0.0-0.4); Lymphocytes Absolute Auto 2.6 X10*3/uL (1.2-4.9); Lymphocytes Percent Auto 25.2 % (20-40); Mean Corpuscular HGB Conc 30.4 g/dl (31.0-35.0); Mean Corpuscular Hemoglobin 22.7 pg (27.0-33.0); Mean Corpuscular Volume 74.8 fL (80.0-98.0); Mean Platelet Volume 11.1 fL (9.4-12.3); Monocytes Absolute Auto 0.8 X10*3/uL (0.1-1.2); Monocytes Percent Auto 8.2 % (2-11); Neutrophils Absolute Auto 6.5 x10*3/uL (2.0-8.3); Neutrophils Percent Auto 64.2 % (45-73); Platelet Count 263 X10*3/uL (160-400); Red Blood Count 5.68 X10*6/uL (4.20-5.50); Red Cell Distribution Width 15.9 % (11.0-16.0); White Blood Count 10.1 X10*3/uL (4.8-10.8)
[2023-05-30 11:29] LABS: Estimated Average Glucose 140 mg/dL; Hemoglobin A1c % 6.5 % (<6.0)
[2023-05-30 12:27] LABS: Alanine Aminotransferase 15 U/L (0-31); Alkaline Phosphatase 60 U/L (39-117); Anion Gap 11 (12-20); Aspartate Amino Transferase 14 U/L (5-31); Bilirubin Total 0.3 mg/dL (0.0-1.0); Blood Urea Nitrogen 13 mg/dL (9-16); Carbon Dioxide 28 mmol/L (22-29); Chloride 106 mmol/L (96-108); Cholesterol 169 mg/dL (<200); Estimated Glomerular Filt Rate > 60; Glucose Fasting 88 mg/dL (60-99); HDL Cholesterol 40 mg/dL (>40); LDL Cholesterol Calculated 107 mg/dL (<100); Sodium 141 mmol/L (135-145); TSH reflex Free T4 1.75 uIU/mL (0.32-4.0); Total Protein 7.9 g/dL (6.5-8.0); Triglycerides 111 mg/dL (<150); Uric Acid 4.2 mg/dL (2.4-5.7); Vitamin D 25-OH Total 29.5 ng/mL (>30)
[2023-05-30 12:31] LABS: Creatinine Urine 131.16 mg/dL; Microalbum/Creatinine Ratio Ur 5.3 ug/mg cr (<30)
== END 2023-05-30 09:35 | disposition home or self-care (01) ==
LOC: HO.HMGCLDS 09:34
PROVIDERS: PCP Internal Medicine; Visit Provider Internal Medicine
DX: I10 Essential (primary) hypertension (principal); E78.00 Pure hypercholesterolemia, unspecified; E11.9 Type 2 diabetes mellitus without complications; E55.9 Vitamin D deficiency, unspecified; R30.0 Dysuria; M10.9 Gout, unspecified
CPT/HCPCS: 36415; 80053; 80061; 81003; 82043; 82306; 82570; 83036; 84443; 84550; 85025

== ENCOUNTER 2023-06-16 11:49 | Outpatient (AMB) | payer OTHER, SELFPAY ==
[2023-06-16 12:35] VITALS: BP 100/86; PULSE 91; O2SAT 97; BMI 38.2
--- NOTE | 2023-06-16 12:35 | A.OFFPC_ITS ---
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 Power Required: No Accompanied by: Self / Same As Patient Allergies No Known Allergies Allergy (Verified 06/16/23 12:51) Medication List - Last Reconciled 06/16/23 by Hilario Keen MD [id number] 50-300-40 mg (Fioricet) 1 cap PO Q8H PRN 30 days cholecalciferol (vitamin D3) 50 mcg PO DAILY 90 days clotrimazole-betamethasone 1-0.05 % 1 appl topical BID PRN 7 days ibuprofen 400 mg PO Q6H PRN indomethacin 50 mg PO TID PRN lisinopril 10 mg PO DAILY metformin ER 1,000 mg (2 x 500 mg) PO BID sitagliptin phosphate (Januvia) 100 mg PO DAILY sumatriptan succinate take 1 tab at onset of headache; if no relief, may repeat 1 tab after at least 2 hrs; max = 2 tabs/24 hrs PO 90 days tizanidine 4 mg PO Q8H PRN 10 days topiramate 25 mg PO BID triamcinolone acetonide 0.5% 1 appl topical TID PRN Tobacco use date assessed: 06/16/23 Dental Screening Dental Screen Date: 06/16/23 Did you have a dental visit in the last 12 months?: Yes Did you have a dental problem in the last 6 months where you did not have access to dental care?: No Was dental information given to patient?: Patient has dentist HPI PE HPI Details Patient comes in today for her annual physical examination States that she currently feels okay She denies any headaches or dizziness Denies any chest pains, no SOB No nausea/vomiting, no abdominal pain No change in bowel habits noted Denies any acute urinary symptoms Had her follow up labs done a couple of weeks ago - to discuss her report She was referred for screening colonoscopy last year but states that she was never contacted to schedule an appointment She had a total hysterectomy done in 2019 so she no longer needs to keep up with annual pap smears and gynecology exam She has not had a mammogram done in a few years - last mammogram on record was from 2019 [facility] Medical History Obesity (BMI 30-39.9) Left hip pain Migraine Costochondritis Osteoarthritis of right hand Morbid obesity with BMI of 40.0-44.9, adult Vitamin D deficiency Complex endometrial hyperplasia with atypia Iron deficiency anemia Nonintractable headache Dyslipidemia Benign essential hypertension Type 2 diabetes mellitus without complication, with no history of insulin use Surgical History History of knee surgery History of total abdominal hysterectomy and bilateral salpingo-oophorectomy (~01/20/20) History of section History of tubal ligation Family History Father Hypertension Diabetes Mother Lupus Maternal Grandmother Uterine cancer Maternal Aunt Breast cancer Paternal Grandmother Uterine cancer Social History Housing: Apartment Alcohol intake: never Patient Tobacco Use Status: Never used Tobacco e-Cigarette/Vaping Use: Never Used Second Hand Smoke Exposure: Yes service: No Current occupational status: employed 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 1. Little interest or pleasure in doing things: not at all 2. Feeling down, depressed, or hopeless: not at all 3. Trouble falling or staying asleep, or sleeping too much: not at all 4. Feeling tired or having little energy: not at all 5. Poor appetite or overeating: not at all 6. Feeling bad about yourself - or that you are a failure or have let yourself or your family down: not at all 7. Trouble concentrating on things, such as reading the newspaper or watching television: not at all 8. Moving or speaking so slowly that other people could have noticed. Or the opposite - being so fidgety or restless that you have been moving around a lot more than usual: not at all 9. Thoughts that you would be better off or of hurting yourself in some way: not at all Total score: 0 Depression Screening Interpretation: Negative Depression Screening Done: Yes 64123 - PHQ-9 Billing: Yes Source: Developed by Drs. David Harris, Anthony Pascal and colleagues, with an educational mitra from [employer]. Thrive Questionnaire Date Thrive assessed: 06/16/23 I am a: Patient Within the past 12 months, did the food you bought not last and you didn't have the money to get more?: Never true Within the past 12 months, did you worry whether your food would run out before you got money to buy more?: Never true Do you have trouble paying for medicines?: No Do you have trouble getting transportation to medical appointments?: No Do you have trouble paying your heating and electricity bill?: No Do you have trouble taking care of your child, family member or friend?: No Do you have trouble with day-to-day activities such as bathing, preparing meals, shopping, managing finances, etc.?: No Are you currently unemployed and looking for a job?: No Are you interested in more education?: No Please select the resources that you would like help with: None Currently or been in a relationship where the following occur: no concerns reported AUDIT C Alcohol Use Questionnaire (AUDIT-C) 1. How often do you have a drink containing alcohol?: Never Total Score: 0 Score Reviewed/Action Taken: Yes SANA-7 AMB Questionnaire SANA-7 Date SANA - 7 assessed: 06/16/23 Feeling nervous, anxious, or on edge: 0 = Not at all Not being able to stop or control worryin = Not at all Worrying too much about different things: 0 = Not at all Trouble relaxin = Not at all Being so restless that it is hard to sit still: 0 = Not at all Becoming easily annoyed or irritable: 0 = Not at all Feeling afraid as if something awful might happen: 0 = Not at all Total SANA-7 score (0-4 normal; 5-9 mild; 10-14 moderate; 15-21 severe): 0 Source: Developed by Katelynn Ward Kurt Kroenke and colleagues, with an educational mitra from [employer]. Review of Systems Const Denies chills, Denies fatigue, Denies fever(s), Denies headache(s) and Denies malaise Eyes Denies blurry vision, Denies change in vision, Denies irritation and Denies itchy eyes ENT Denies dysphagia, Denies dizziness, Denies otalgia, Denies headache(s), Denies nasal congestion, Denies neck pain, Denies odynophagia, Denies sinus pain and Denies sore throat Card Denies chest pain, Denies rapid heart rate, Denies irregular heart rhythm, Denies palpitations and Denies dyspnea Resp Denies chest congestion, Denies cough, Denies dyspnea and Denies wheezing GI Denies abdominal pain, Denies bloating, Denies constipation, Denies dysphagia, Denies heartburn, Denies diarrhea, Denies nausea, Denies odynophagia and Denies vomiting Denies hematuria, Denies urinary frequency, Denies dysuria, Denies urinary incontinence and Denies urinary urgency Musc Denies back pain, Denies arthralgias, Denies joint swelling, Denies muscle weakness and Denies neck pain Skin/Breast Denies breast pain, Denies breast mass, Denies change in pigmentation, Denies lesions, Denies rash and Denies unusual bruising Neuro Denies dizziness, Denies headache(s) and Denies paresthesias Psych Denies anxiety and Denies depression Endo Denies fatigue and Denies palpitations Rojelio/Lymph Denies easy bruising Aller/Immun Denies itchy eyes and Denies wheezing Physical exam (Primary Care) Vital Signs: Oxygen Delivery Method Room Air 06/16/23 12:35 Tobacco/Smoking Status: Tobacco use Status Tobacco use date assessed 02/08/23 02/08/23 13:12 Patient Tobacco Use Status Never used Tobacco 02/08/23 13:12 e-Cigarette/Vaping Use Never Used 02/08/23 13:12 Depression Screening Interpretation: Negative Thrive Assessment: Date of Thrive Assessment Date Thrive assessed 02/08/23 02/08/23 13:12 Currently or been in a relationship where the following occur: no concerns reported Const General: no acute distress, alert and awake Orientation/consciousness: patient oriented x3 HENMT Head: Yes normocephalic and Yes atraumatic Ears: external ears normal, TM's normal bilaterally and EAC's normal General nose exam: No nasal discharge present Face and sinus: Yes normal facial exam and Yes sinuses nontender Teeth and gingiva: dentition normal Throat: Yes posterior oropharynx normal and Yes tonsils normal (no TP congestion) Eyes Eyelids: Yes eyelids normal Conjunctivae: conjunctivae normal Pupils: Equal, round and reactive pupils present EOM: EOMs intact bilaterally Neck Neck: Yes no lymphadenopathy and Yes supple Thyroid: Thyroid normal Resp Auscultation: clear to auscultation bilaterally, no rales and no wheezes Cardio Rate: regular rate Rhythm: regular rhythm Heart sounds: no murmurs GI Palpation (GI): Soft to palpation, nontender and No hepatosplenomegaly present Auscultation: normal bowel sounds General: Yes no CVA tenderness Back/Spine/Pelvis Back: no CVA tenderness Thoracic/Lumbar Spine: thoracic and lumbar spine normal to inspection Skin Lesions: no lesions Rashes: no rashes Neuro General: patient oriented x3, moves all extremities, no focal motor deficits and CN's II-XI intact bilaterally Cranial nerves: Yes Equal, round and reactive pupils present Cognition (Neuro): normal cognition Gait exam (Neuro): Normal gait present Extrem General: Yes no clubbing, cyanosis or edema Results Reviewed Results Reviewed: Laboratory Tests 05/30/23 05/30/23 05/30/23 09:39 09:39 09:39 WBC 10.1 Hgb 12.9 Hct 42.5 MCV 74.8 L MCH 22.7 L MCHC 30.4 L RDW 15.9 Plt Count 263 Sodium 141 Potassium 4.0 Creatinine 0.76 Estimated GFR > 60 Fasting Glucose 88 Hemoglobin A1c % 6.5 H Uric Acid 4.2 Calcium 9.0 AST 14 ALT 15 Triglycerides 111 Cholesterol 169 LDL Cholesterol, Calc 107 H HDL Cholesterol 40 L 25-OH Vitamin D Total 29.5 L TSH 1.75 Ur Specific [place] Urine Protein Urine Glucose (UA) Urine Blood Microalb/Creat Ratio 05/30/23 05/30/23 09:45 09:45 WBC Hgb Hct MCV MCH MCHC RDW Plt Count Sodium Potassium Creatinine Estimated GFR Fasting Glucose Hemoglobin A1c % Uric Acid Calcium AST ALT Triglycerides Cholesterol LDL Cholesterol, Calc HDL Cholesterol 25-OH Vitamin D Total TSH Ur Specific [place] 1.020 Urine Protein Negative Urine Glucose (UA) Negative Urine Blood Negative Microalb/Creat Ratio 5.3 Assessment and Plan Assessment & Plan (1) Annual physical exam: Code(s): Z00.00 - Encounter for general adult medical examination without abnormal findings Plan: Results of her labs done a couple of weeks ago reviewed and discussed with patient Patient was referred for screening colonoscopy last year but states that she was never contacted to schedule an appointment She had a total hysterectomy done in 2019 so she no longer needs to keep up with annual pap smears and gynecology exam but will need to start BMD screening in a couple of years (2024) She has not had a mammogram done in a couple of years - was last done in 2019 (2) Type 2 diabetes mellitus without complication, with no history of insulin use: Code(s): E11.9 - Type 2 diabetes mellitus without complications Plan: HgbA1c was at 6.5% on her labs done a couple of weeks ago (in-office HgbA1c was previously at 6.0% a few months ago and at 5.7% prior to that) - goal is <7.0% Reinforced diabetic diet Continue Metformin ER 500 mg 2 tablets (1000 mg) BID and Januvia 100 mg QD Have advised her that her HgbA1c has been steadily rising over the past year and if it continues, we will need to address this and potentially add or change her meds (3) Benign essential hypertension: Code(s): I10 - Essential (primary) hypertension Plan: Reinforced low-sodium diet - goal is systolic BP of around 120 mm or less Continue Lisinopril 10 mg QD (4) Dyslipidemia: Code(s): E78.5 - Hyperlipidemia, unspecified Plan: Reinforced low cholesterol diet Is advised that her cholesterol levels have improved from previous - LDL cholesterol is now at 107 mg/dl (from 120 mg/dl before) but advised that this has to be ideally <100 mg/dl Will recheck her fasting lipids and labs in 4 months for follow up (5) RBC microcytosis: Code(s): R71.8 - Other abnormality of red blood cells Plan: Patient's H/H remain normal but her CBC continue to present with microcytosis and hypochromia (which have been present for a few years) and do not appear to be correcting with iron supplementation Suspect that she may have a form of thalassemia Will send her for additional labs (ferritin and Hgb electrophoresis) for further evaluation (6) Migraine: Code(s): G43.909 - Migraine, unspecified, not intractable, without status migrainosus Qualifiers: Migraine type: unspecified Status migrainosus presence: without status migrainosus Intractability: not intractable Qualified Code(s): G43.909 - Migraine, unspecified, not intractable, without status migrainosus Plan: Was diagnosed with migraine headaches by neurology a couple of years ago Continue Topiramate 25 mg twice a day for headache prophylaxis - headaches have been well-controlled on prophylactic Rx Continue Sumatriptan 100 mg PRN and Fioricet PRN for symptomatic relief (7) Gout: Code(s): M10.9 - Gout, unspecified Qualifiers: Gout site: ankle Gout etiology: unspecified cause Chronicity: acute Laterality: right Qualified Code(s): M10.9 - Gout, unspecified Plan: Was diagnosed with gout in the right ankle at the walk-in clinic a few months ago; symptoms have since resolved with Tx with Indomethacin and she has had no recurrence of symptoms since Serum uric acid level was normal at 5.0 on her labs done a few months ago and is normal as well at 4.2 when checked a couple of weeks ago Reinforced low purine diet (8) Vitamin D deficiency: Code(s): E55.9 - Vitamin D deficiency, unspecified Plan: Advised that her vitamin D level is low on her recent labs and she should continue taking her Vitamin D3 2000 units QD (9) Obesity (BMI 30-39.9): Code(s): E66.9 - Obesity, unspecified Plan: Reinforced diet/exercise as tolerated/lose weight (10) Colon cancer screening: Code(s): Z12.11 - Encounter for screening for malignant neoplasm of colon Plan: Will refer her again for screening colonoscopy (11) Breast cancer screening by mammogram: Code(s): Z12.31 - Encounter for screening mammogram for malignant neoplasm of breast Plan: Will also send her for her annual mammogram Plan Follow up in 4 months Orders: Orders Lipid Panel 4 Months E78.00 - Pure hypercholesterolemia, unspecified TSH reflex Free T4 4 Months E78.00 - Pure hypercholesterolemia, unspecified Comprehensive [place]. Panel Fast 4 Months E78.00 - Pure hypercholesterolemia, unspecified UA CC w/rflx Micro + Cult 4 Months R30.0 - Dysuria Vitamin D 25-OH Total 4 Months E55.9 - Vitamin D deficiency, unspecified Vitamin B12 and Folate 4 Months E53.8 - Deficiency of other specified B group vitamins Ferritin Today D50.8 - Other iron deficiency anemias, R71.8 - Other abnormality of red blood cells Hemoglobin Electrophoresis Today D50.8 - Other iron deficiency anemias, R71.8 - Other abnormality of red blood cells MM tomosynthesis screening BI Today Z12.31 - Encounter for screening mammogram for malignant neoplasm of breast Complete Blood Count Auto Diff 4 Months I10 - Essential (primary) hypertension Hemoglobin A1c 4 Months E11.9 - Type 2 diabetes mellitus without complications Microalbumin, Random (w Creat) 4 Months E11.9 - Type 2 diabetes mellitus without complications Referrals Gastroenterology Referral Z12.11 - Encounter for screening for malignant neoplasm of colon Coding Level of Care Code Est Pt Prev Care 40-64y(24530) Diagnoses Annual physical exam Z00.00 Type 2 diabetes mellitus without complication, with no history of insulin use E11.9 Benign essential hypertension I10 Dyslipidemia E78.5 RBC microcytosis R71.8 Migraine without status migrainosus, not intractable, unspecified migraine type G43.909 Migraine type: unspecified Status migrainosus presence: without status migrainosus Intractability: not intractable Acute gout of right ankle, unspecified cause M10.9 Gout site: ankle Gout etiology: unspecified cause Chronicity: acute Laterality: right Vitamin D deficiency E55.9 Obesity (BMI 30-39.9) E66.9 Colon cancer screening Z12.11 Breast cancer screening by mammogram Z12.31
== END 2023-06-16 13:09 | disposition home or self-care (01) ==
PROVIDERS: Visit Provider Internal Medicine
DX: Z00.00 Encounter for general adult medical examination without abnormal findings (principal); E11.9 Type 2 diabetes mellitus without complications; I10 Essential (primary) hypertension; E78.5 Hyperlipidemia, unspecified; R71.8 Other abnormality of red blood cells; E66.9 Obesity, unspecified; Z68.38 Body mass index [BMI] 38.0-38.9, adult; G43.909 Migraine, unspecified, not intractable, without status migrainosus; M10.9 Gout, unspecified; E55.9 Vitamin D deficiency, unspecified
CPT/HCPCS: 99396

== ENCOUNTER 2023-10-11 12:13 | Outpatient (REF) | payer OTHER, SELFPAY ==
[2023-10-11 13:36] LABS: MANUAL DIFF FLAG NO
[2023-10-11 13:46] LABS: Appearance Urine Cloudy; Color Urine Yellow; Glucose Urine UA Negative (Negative); Leukocyte Esterase Urine Negative (Negative); Nitrite Urine Negative (Negative); Specific Gravity - Urine >= 1.030 (1.005-1.025); Urine Blood Negative (Negative); Urine Ketones Negative (Negative); Urine Protein Negative (Neg-Trace)
[2023-10-11 13:59] LABS: Basophils Percent Auto 0.3 % (0-2); Eosinophils Absolute Auto 0.1 X10*3/uL (0.0-0.4); Eosinophils Percent Auto 1.2 % (0-4); Hematocrit 41.7 % (37.0-47.0); Hemoglobin 12.9 g/dl (12.0-16.0); Imm Gran Abs Auto 0.03 X10*3/uL (0.00-0.03); Imm Gran Pct Auto 0.3 % (0.0-0.4); Lymphocytes Absolute Auto 2.6 X10*3/uL (1.2-4.9); Lymphocytes Percent Auto 22.2 % (20-40); Mean Corpuscular HGB Conc 30.9 g/dl (31.0-35.0); Mean Corpuscular Hemoglobin 22.8 pg (27.0-33.0); Mean Corpuscular Volume 73.5 fL (80.0-98.0); Mean Platelet Volume 10.3 fL (9.4-12.3); Monocytes Absolute Auto 0.8 X10*3/uL (0.1-1.2); Monocytes Percent Auto 6.5 % (2-11); Neutrophils Absolute Auto 8.1 x10*3/uL (2.0-8.3); Neutrophils Percent Auto 69.5 % (45-73); Platelet Count 269 X10*3/uL (160-400); Red Blood Count 5.67 X10*6/uL (4.20-5.50); Red Cell Distribution Width 15.6 % (11.0-16.0); White Blood Count 11.6 X10*3/uL (4.8-10.8)
[2023-10-11 14:14] LABS: Estimated Average Glucose 143 mg/dL; Hemoglobin A1c % 6.6 % (<6.0)
[2023-10-11 14:47] LABS: Alanine Aminotransferase 19 U/L (0-31); Albumin Level 3.9 g/dL (3.5-5.0); Alkaline Phosphatase 62 U/L (39-117); Anion Gap 13 (12-20); Aspartate Amino Transferase 16 U/L (5-31); Bilirubin Total 0.5 mg/dL (0.0-1.0); Blood Urea Nitrogen 19 mg/dL (9-16); Calcium 8.8 mg/dL (8.4-10.2); Carbon Dioxide 25 mmol/L (22-29); Chloride 106 mmol/L (96-108); Cholesterol 171 mg/dL (<200); Estimated Glomerular Filt Rate > 60; Ferritin 250 ng/mL (10-250); Glucose Fasting 110 mg/dL (60-99); HDL Cholesterol 43 mg/dL (>40); LDL Cholesterol Calculated 112 mg/dL (<100); Potassium 3.6 mmol/L (3.3-5.1); Sodium 140 mmol/L (135-145); TSH reflex Free T4 1.23 uIU/mL (0.32-4.0); Total Protein 7.7 g/dL (6.5-8.0); Triglycerides 81 mg/dL (<150); Vitamin D 25-OH Total 33.5 ng/mL (>30)
[2023-10-11 14:58] LABS: Creatinine Urine 217.44 mg/dL; Microalbum/Creatinine Ratio Ur 4.5 ug/mg cr (<30)
[2023-10-11 19:56] LABS: Vitamin B12 468 pg/mL (200-900)
[2023-10-12 14:59] LABS: Hematocrit 41.6 % (35.0-45.0); Hemoglobin 12.7 g/dL (11.7-15.5); MCH 22.7 pg (27.0-33.0); MCV 74.3 fL (80.0-100.0); RDW 14.7 % (11.0-15.0)
== END 2023-10-11 12:14 | disposition home or self-care (01) ==
LOC: HO.HMGCLDS 12:13
PROVIDERS: PCP Internal Medicine; Visit Provider Internal Medicine
DX: I10 Essential (primary) hypertension (principal); E11.9 Type 2 diabetes mellitus without complications; R30.0 Dysuria; D50.8 Other iron deficiency anemias; E78.00 Pure hypercholesterolemia, unspecified; E53.8 Deficiency of other specified B group vitamins; E55.9 Vitamin D deficiency, unspecified
CPT/HCPCS: 36415; 80053; 80061; 81003; 82043; 82306; 82570; 82607; 82728; 82746; 83020; 83036; 84443; 85014; 85018; 85025; 85041

== ENCOUNTER 2023-10-18 10:25 | Outpatient (AMB) | payer OTHER, SELFPAY ==
--- NOTE | 2023-10-18 10:29 | MHC.PC.OV ---
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 Accompanied by: Self / Same As Patient Allergies No Known Allergies Allergy (Verified 10/23/23 00:35) Medication List - Last Reconciled 10/18/23 by Hilario Keen MD [id number]-lieohxbqbhkyd-vyjr 50-300-40 mg (Fioricet) 1 cap PO Q8H PRN 30 days cholecalciferol (vitamin D3) 50 mcg PO DAILY 90 days clotrimazole-betamethasone 1-0.05 % 1 appl topical BID PRN 7 days ibuprofen 400 mg PO Q6H PRN indomethacin 50 mg PO TID PRN lisinopril 10 mg PO DAILY 90 days metformin ER 1,000 mg (2 x 500 mg) PO BID sitagliptin phosphate (Januvia) 100 mg PO DAILY 90 days sumatriptan succinate take 1 tab at onset of headache; if no relief, may repeat 1 tab after at least 2 hrs; max = 2 tabs/24 hrs PO 90 days tizanidine 4 mg PO Q8H PRN 10 days topiramate 25 mg PO BID triamcinolone acetonide 0.5% 1 appl topical TID PRN Tobacco use date assessed: 10/18/23 Dental Screening Dental Screen Date: 10/18/23 Did you have a dental visit in the last 12 months?: Yes Did you have a dental problem in the last 6 months where you did not have access to dental care?: No Was dental information given to patient?: Patient has dentist HPI DM, hyperlipidemia, HTN, migraine HPI Details Patient comes in today for her follow up visit States that she feels okay except for her increasing right knee pain lately Denies any recent injury or trauma to her right knee; relates that she had left knee replacement surgery a few years ago and never really had any issues with her right knee until recently She denies any headaches or dizziness Denies any chest pains, no SOB No nausea/vomiting, no abdominal pain No change in bowel habits noted States that she has been breaking out in some recurrent itchy rash lately, especially over her hands, and would like to get some Rx to help with the rash Needs several of her Rx refilled Had her follow up labs done last week - to discuss her results [facility] Medical History Obesity (BMI 30-39.9) Left hip pain Migraine Costochondritis Osteoarthritis of right hand Morbid obesity with BMI of 40.0-44.9, adult Vitamin D deficiency Complex endometrial hyperplasia with atypia Iron deficiency anemia Nonintractable headache Dyslipidemia Benign essential hypertension Type 2 diabetes mellitus without complication, with no history of insulin use Surgical History History of knee surgery History of total abdominal hysterectomy and bilateral salpingo-oophorectomy (~01/20/20) History of section History of tubal ligation Family History Father Hypertension Diabetes Mother Lupus Maternal Grandmother Uterine cancer Maternal Aunt Breast cancer Paternal Grandmother Uterine cancer Social History Housing: Apartment Alcohol intake: never Patient Tobacco Use Status: Never used Tobacco e-Cigarette/Vaping Use: Never Used Second Hand Smoke Exposure: Yes service: No Current occupational status: employed 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 1. Little interest or pleasure in doing things: not at all 2. Feeling down, depressed, or hopeless: not at all 3. Trouble falling or staying asleep, or sleeping too much: not at all 4. Feeling tired or having little energy: not at all 5. Poor appetite or overeating: not at all 6. Feeling bad about yourself - or that you are a failure or have let yourself or your family down: not at all 7. Trouble concentrating on things, such as reading the newspaper or watching television: not at all 8. Moving or speaking so slowly that other people could have noticed. Or the opposite - being so fidgety or restless that you have been moving around a lot more than usual: not at all 9. Thoughts that you would be better off or of hurting yourself in some way: not at all Total score: 0 Depression Screening Interpretation: Negative Depression Screening Done: Yes 60490 - PHQ-9 Billing: Yes Source: Developed by Drs. David Harris, Katelynn Mueller, Anthony Downing and colleagues, with an educational mitra from [employer]. Thrive Questionnaire Date Thrive assessed: 10/18/23 I am a: Patient What is your living situation today?: I have a steady place to live Within the past 12 months, did the food you bought not last and you didn't have the money to get more?: Never true Within the past 12 months, did you worry whether your food would run out before you got money to buy more?: Never true Do you have trouble paying for medicines?: No Do you have trouble getting transportation to medical appointments?: No Do you have trouble taking care of your child, family member or friend?: No Do you have trouble with day-to-day activities such as bathing, preparing meals, shopping, managing finances, etc.?: No Are you currently unemployed and looking for a job?: No Are you interested in more education?: No Please select the resources that you would like help with: None Currently or been in a relationship where the following occur: no concerns reported THRIVE Score: 0 AUDIT C Alcohol Use Questionnaire (AUDIT-C) 1. How often do you have a drink containing alcohol?: Never 3. How often do you have six or more drinks on one occasion?: Never Total Score: 0 Score Reviewed/Action Taken: Yes SANA-7 AMB Questionnaire SANA-7 Date SANA - 7 assessed: 10/18/23 Source: Developed by Drs. David Harris, Katelynn Mueller, Anthony Downing and colleagues, with an educational mitra from [employer]. Review of Systems Const Denies chills, Denies fatigue, Denies fever(s) and Denies headache(s) ENT Denies dysphagia, Denies dizziness, Denies otalgia, Denies headache(s), Denies neck pain, Denies odynophagia and Denies sore throat Card Denies chest pain, Denies rapid heart rate, Denies irregular heart rhythm, Denies palpitations and Denies dyspnea Resp Denies cough, Denies dyspnea and Denies wheezing GI Denies abdominal pain, Denies constipation, Denies dysphagia, Denies heartburn, Denies diarrhea, Denies nausea, Denies odynophagia and Denies vomiting Denies urinary frequency, Denies dysuria and Denies urinary incontinence Musc Denies back pain, Reports arthralgias (right knee) and Denies neck pain Skin/Breast Reports rash (on and off, itchy - see HPI) Neuro Denies dizziness, Denies headache(s) and Denies paresthesias Psych Denies anxiety and Denies depression Endo Denies fatigue and Denies palpitations Rojelio/Lymph Denies easy bruising Aller/Immun Denies wheezing Physical exam (Primary Care) Vital Signs: Last Vital Signs Pulse 84 10/18/23 10:33 Resp 17 10/18/23 10:33 BP 98/60 10/18/23 11:21 Pulse Ox 97 10/18/23 10:33 Oxygen Delivery Method Room Air 10/18/23 10:33 BMI result Body Mass Index 38.9 Tobacco/Smoking Status: Tobacco use Status Tobacco use date assessed 10/18/23 10/18/23 10:38 Patient Tobacco Use Status Never used Tobacco 10/18/23 10:29 e-Cigarette/Vaping Use Never Used 10/18/23 10:29 PHQ-9: PHQ-9 Score PHQ-9: Total score 0 10/18/23 11:20 Depression Screening Interpretation: Negative Thrive Assessment: Date of Thrive Assessment Date Thrive assessed 10/18/23 10/18/23 10:31 Currently or been in a relationship where the following occur: no concerns reported Const General: no acute distress and alert HENMT Ears: TM's normal bilaterally and EAC's normal Throat: Yes posterior oropharynx normal and Yes tonsils normal (no TP congestion) Neck Neck: Yes no lymphadenopathy and Yes supple Thyroid: Thyroid normal Resp Auscultation: clear to auscultation bilaterally, no rales and no wheezes Cardio Rate: regular rate Rhythm: regular rhythm Heart sounds: no murmurs GI Palpation (GI): Soft to palpation and nontender Auscultation: normal bowel sounds General: Yes no CVA tenderness Back/Spine/Pelvis Back: no CVA tenderness Thoracic/Lumbar Spine: No lumbar spinal tenderness Skin Other: (+) few scattered erythematous urticarial lesions on the hands/fingers Extrem General: Yes no clubbing, cyanosis or edema Right lower extremity: knee Details: tenderness Location: of the pre-patellar area and normal ROM; no swelling Results Reviewed Results Reviewed: Laboratory Tests 10/06/22 10/11/23 08:40 12:19 WBC 11.6 H RBC (Send Out) 5.60 H Hgb 12.9 Hgb (Send Out) 12.7 Hct 41.7 MCV 73.5 L MCH 22.8 L MCHC 30.9 L RDW 15.6 Plt Count 269 ESR 23 H Hemoglobin A 97.1 Hemoglobin A2 2.4 Sodium 140 Potassium 3.6 Creatinine 0.79 Estimated GFR > 60 Fasting Glucose 110 H Hemoglobin A1c % 6.6 H Calcium 8.8 Ferritin 250 AST 16 ALT 19 Triglycerides 81 Cholesterol 171 LDL Cholesterol, Calc 112 H HDL Cholesterol 43 Vitamin B12 468 25-OH Vitamin D Total 33.5 TSH 1.23 Ur Specific [place] >= 1.030 H Urine Protein Negative Urine Glucose (UA) Negative Urine Blood Negative Urine Nitrite Negative Ur Leukocyte Esterase Negative Microalb/Creat Ratio 4.5 Assessment and Plan Assessment & Plan (1) Type 2 diabetes mellitus without complication, with no history of insulin use: Code(s): E11.9 - Type 2 diabetes mellitus without complications Plan: Her HgbA1c was at 6.6% on her labs done last week (was previously at 6.5% a few months ago) - goal is at least <7.0% but ideally <6.5% Reinforced diabetic diet Continue Metformin ER 500 mg 2 tablets (1000 mg) BID and Januvia 100 mg QD (2) Benign essential hypertension: Code(s): I10 - Essential (primary) hypertension Plan: Reinforced low-sodium diet - goal is systolic BP of 120 mm or less Continue Lisinopril 10 mg QD (3) Dyslipidemia: Code(s): E78.5 - Hyperlipidemia, unspecified Plan: Results of her labs done last week reviewed and discussed with patient Reinforced low cholesterol diet Her LDL cholesterol is at 112 mg/dl on her recent labs (from 107 mg/dl previously) - is reminded that this has to be ideally <100 mg/dl Will recheck her fasting lipids and labs in 4 months for follow up (4) RBC microcytosis: Code(s): R71.8 - Other abnormality of red blood cells Plan: Patient's H/H have remained normal but her CBC continue to present with microcytosis and hypochromia (which have been present for a few years) and do not appear to be correcting with iron supplementation; RDW is normal on her labs done last week Suspect that she may have alpha thalassemia - her recent Hgb electrophoresis is suggesting the same Her recent ferritin level was normal Will recheck her CBC in 4 months, as well as her serum iron level, and if these are normal, will consider referring her for genetic counseling - advised that this is not for her sake for mostly for her future generations (5) Migraine: Code(s): G43.909 - Migraine, unspecified, not intractable, without status migrainosus Qualifiers: Intractability: not intractable Migraine type: unspecified Status migrainosus presence: without status migrainosus Qualified Code(s): G43.909 - Migraine, unspecified, not intractable, without status migrainosus Plan: She was diagnosed with migraine headaches by neurology a couple of years ago Continue Topiramate 25 mg BID for headache prophylaxis - headaches have been well-controlled on prophylactic Rx Continue Sumatriptan 100 mg PRN and Fioricet PRN for symptomatic treatment/relief (6) Gout: Code(s): M10.9 - Gout, unspecified Qualifiers: Chronicity: acute Gout etiology: unspecified cause Gout site: ankle Laterality: right Qualified Code(s): M10.9 - Gout, unspecified Plan: She was diagnosed with gout in the right ankle at the walk-in clinic last year; symptoms have since resolved with Tx with Indomethacin and she has had no recurrence of symptoms since Serum uric acid level was normal at 5.0 on her labs done a few months ago and is normal as well at 4.2 when checked a couple of weeks ago Reinforced low purine diet (7) Right knee pain: Code(s): M25.561 - Pain in right knee Qualifiers: Chronicity: unspecified Qualified Code(s): M25.561 - Pain in right knee Plan: Will send patient for x-rays of her right knee for further evaluation Will refer her as well to orthopedics for further evaluation and management of her increasing right knee pain - based on her Hx of left knee OA that eventually required TKA, discussed that she also likely has progressing OA in the right knee (8) Vitamin D deficiency: Code(s): E55.9 - Vitamin D deficiency, unspecified Plan: Continue Vitamin D3 2000 units QD (9) Rash: Code(s): R21 - Rash and other nonspecific skin eruption Plan: Will start her on Hydrocortisone 1% cream apply to rash TID PRN (10) Obesity (BMI 30-39.9): Code(s): E66.9 - Obesity, unspecified Plan: Reinforced diet/exercise as tolerated/lose weight Plan Follow up in 4 months Orders: Orders Complete Blood Count Auto Diff 4 Months D64.9 - Anemia, unspecified Lipid Panel 4 Months E78.00 - Pure hypercholesterolemia, unspecified Microalbumin, Random (w Creat) 4 Months E11.9 - Type 2 diabetes mellitus without complications UA CC w/rflx Micro + Cult 4 Months R30.0 - Dysuria Vitamin D 25-OH Total 4 Months E55.9 - Vitamin D deficiency, unspecified XR knee RT 4V 24 M25.561 - Pain in right knee Hemoglobin A1c 4 Months E11.9 - Type 2 diabetes mellitus without complications Comprehensive [place]. Panel Fast 4 Months E78.00 - Pure hypercholesterolemia, unspecified TSH reflex Free T4 4 Months E78.00 - Pure hypercholesterolemia, unspecified IRON PROFILE 02/16/24 D50.8 - Other iron deficiency anemias, R71.8 - Other abnormality of red blood cells Referrals Orthopedics Referral M25.561 - Pain in right knee Medications: New hydrocortisone 1% 1 appl topical TID PRN 28.4 grams 0RF skin irritation/rash Changed From ibuprofen 400 mg PO Q6H PRN 20 tabs 0RF pain To ibuprofen Take with food 400 mg PO Q6H PRN 30 tabs 0RF pain From sitagliptin phosphate (Januvia) 100 mg PO DAILY 90 tabs 0RF E11.9 - Type 2 diabetes mellitus without complications To sitagliptin phosphate (Januvia) 100 mg PO DAILY 90 days 90 tabs 1RF E11.9 - Type 2 diabetes mellitus without complications From lisinopril 10 mg PO DAILY 90 tabs 0RF I10 - Essential (primary) hypertension To lisinopril 10 mg PO DAILY 90 days 90 tabs 1RF I10 - Essential (primary) hypertension Refilled vjygefcjja-kgxjiieeualcs-dwkx 50-300-40 mg (Fioricet) 1 cap PO Q8H 30 days PRN 90 caps 0RF headache Coding Level of Care Code Est Pt Level 4 (47095) Diagnoses Type 2 diabetes mellitus without complication, with no history of insulin use E11.9 Benign essential hypertension I10 Dyslipidemia E78.5 RBC microcytosis R71.8 Migraine without status migrainosus, not intractable, unspecified migraine type G43.909 Intractability: not intractable Migraine type: unspecified Status migrainosus presence: without status migrainosus Acute gout of right ankle, unspecified cause M10.9 Chronicity: acute Gout etiology: unspecified cause Gout site: ankle Laterality: right Right knee pain, unspecified chronicity M25.561 Chronicity: unspecified Vitamin D deficiency E55.9 Rash R21 Obesity (BMI 30-39.9) E66.9
[2023-10-18 10:33] VITALS: BP 90/58; PULSE 84; RESP 17; O2SAT 97; BMI 38.9
[2023-10-18 11:21] VITALS: BP 98/60
== END 2023-10-18 11:27 | disposition home or self-care (01) ==
PROVIDERS: PCP Internal Medicine; Visit Provider Internal Medicine
DX: E11.9 Type 2 diabetes mellitus without complications (principal); I10 Essential (primary) hypertension; E78.5 Hyperlipidemia, unspecified; R71.8 Other abnormality of red blood cells; G43.909 Migraine, unspecified, not intractable, without status migrainosus; M10.9 Gout, unspecified; M25.561 Pain in right knee; E55.9 Vitamin D deficiency, unspecified; R21 Rash and other nonspecific skin eruption
CPT/HCPCS: 99214

== ENCOUNTER 2023-11-08 10:24 | Outpatient (AMB) | payer OTHER, SELFPAY ==
[2023-11-08 10:25] VITALS: BMI 38.9
--- NOTE | 2023-11-08 10:25 | A.OFFVIS_ITS ---
Vital Signs 11/08/23 10:25 Height 5 ft 5 in Weight 234 lb BMI 38.9 Intake Visit Reasons: Pain in right knee Intake Note: Adonay is 53 year old female who presents as a new patient with complaints of intermittent discomfort along the anterior aspect of her right knee. She states that her discomfort has been present for the last 1-2 weeks. She denies any locking or giving way. She did undergo bilateral total knee replacement surgeries approximately 15 years ago while living in [place]. She has taken ibuprofen which gives her mild relief. Allergies No Known Allergies Allergy (Verified 11/08/23 10:43) Medication List - Last Reconciled 11/08/23 by Sudeep Anguiano MD xazquvjxkr-etffcjybgnxcv-teom 50-300-40 mg (Fioricet) 1 cap PO Q8H PRN 30 days cholecalciferol (vitamin D3) 50 mcg PO DAILY 90 days clotrimazole-betamethasone 1-0.05 % 1 appl topical BID PRN 7 days hydrocortisone 1% 1 appl topical TID PRN ibuprofen 400 mg PO Q6H PRN indomethacin 50 mg PO TID PRN lisinopril 10 mg PO DAILY 90 days metformin ER 1,000 mg (2 x 500 mg) PO BID sitagliptin phosphate (Januvia) 100 mg PO DAILY 90 days sumatriptan succinate take 1 tab at onset of headache; if no relief, may repeat 1 tab after at least 2 hrs; max = 2 tabs/24 hrs PO 90 days tizanidine 4 mg PO Q8H PRN 10 days topiramate 25 mg PO BID triamcinolone acetonide 0.5% 1 appl topical TID PRN PFSH Medical History Obesity (BMI 30-39.9) Left hip pain Migraine Costochondritis Osteoarthritis of right hand Morbid obesity with BMI of 40.0-44.9, adult Vitamin D deficiency Complex endometrial hyperplasia with atypia Iron deficiency anemia Nonintractable headache Dyslipidemia Benign essential hypertension Type 2 diabetes mellitus without complication, with no history of insulin use Surgical History History of knee surgery History of total abdominal hysterectomy and bilateral salpingo-oophorectomy (~01/20/20) History of section History of tubal ligation Family History Father Hypertension Diabetes Mother Lupus Maternal Grandmother Uterine cancer Maternal Aunt Breast cancer Paternal Grandmother Uterine cancer Social History Housing: Apartment Alcohol intake: never Patient Tobacco Use Status: Never used Tobacco e-Cigarette/Vaping Use: Never Used Second Hand Smoke Exposure: Yes service: No Current occupational status: employed 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, 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 Cognitive needs: Yes (cane) Hearing needs: No Vision needs: Yes (glasses) Female Reproductive History Menstrual Age of Menarche: 14 Physical Exam Vital Signs: BMI result Body Mass Index 38.9 Const Other: Well-nourished well-developed very friendly female awake alert and oriented x3 in no acute distress Extrem Other: Bilateral lower extremity examination shows good capillary refill, no skin lesions noted, normal sensation light touch Right knee examination shows that the surgical incision is well, no erythema, full active extension and flexion to 120 degrees, her patella tracks well, mild tenderness to palpation over her patella tendon, no tenderness over her medial collateral ligament or lateral collateral ligament, no instability Results Reviewed Results Reviewed: X-rays of the patient's right knee taken today show a total knee arthroplasty in good position with slight varus angulation of the tibial component, no acute bony abnormalities, no gross loosening Assessment & Plan Assessment & Plan (1) Right knee pain: Code(s): M25.561 - Pain in right knee Category: Medical Qualifiers: Chronicity: unspecified Qualified Code(s): M25.561 - Pain in right knee Plan Ms. Hurst presents with discomfort along the anterior aspect of her right knee most likely due to patellar tendinitis. I had a lengthy discussion with the patient regarding the treatment options. At this point the patient's symptoms are tolerable to her. She will continue with her home exercise program. She will follow up with me on an as-needed basis should her symptoms not plateau at an unacceptable level over the next few weeks. Feel free to call me at any time should questions regarding her orthopedic management arise. Thank you very much for asking me to see this very friendly patient. I spent 22 minutes in reviewing the patient's records and imaging studies, seeing the patient and documenting in the medical record. Orders: Orders XR knee RT 3V Today M25.561 - Pain in right knee Coding Level of Care Code New Pt Level 2 (91752) Diagnoses Right knee pain, unspecified chronicity M25.561 Chronicity: unspecified
== END 2023-11-08 11:06 | disposition home or self-care (01) ==
PROVIDERS: PCP Internal Medicine; Visit Provider Orthopaedic Surgery
DX: M25.561 Pain in right knee (principal)
CPT/HCPCS: 99202

== ENCOUNTER 2023-11-08 13:07 | Outpatient (REF) | payer OTHER, SELFPAY ==
--- NOTE | ~2023-11-08 | XR_ITS ---
EXAMINATION: XR KNEE, RIGHT CLINICAL INFORMATION: Pain in right knee COMPARISON: Right knee 12/19/2019 TECHNIQUE: 3 views of the right knee. FINDINGS: There is a right total knee prosthesis. The prosthetic components are in satisfactory alignment. No prosthetic loosening is seen. No fracture. Small anterior superior enthesophyte is present. There are several ossific densities in the posterior knee which are again seen and likely represent loose bodies within the posterior knee joint. XR/XR knee RT 3V IMPRESSION: 1. Satisfactory appearance of right total knee prosthesis. 2. Multiple loose bodies within the posterior knee joint, without significant change from the prior study.
== END 2023-11-08 13:08 | disposition home or self-care (01) ==
LOC: HO.HOSX 13:07
PROVIDERS: Visit Provider Orthopaedic Surgery
DX: M25.561 Pain in right knee (principal); Z96.653 Presence of artificial knee joint, bilateral
CPT/HCPCS: 73562; 99202

== ENCOUNTER 2024-03-13 08:52 | Outpatient (REF) | payer OTHER, SELFPAY ==
[2024-03-13 09:57] LABS: MANUAL DIFF FLAG NO
[2024-03-13 10:01] LABS: Basophils Percent Auto 0.4 % (0-2); Eosinophils Absolute Auto 0.2 X10*3/uL (0.0-0.4); Eosinophils Percent Auto 1.6 % (0-4); Hematocrit 40.3 % (37.0-47.0); Hemoglobin 12.5 g/dl (12.0-16.0); Imm Gran Abs Auto 0.03 X10*3/uL (0.00-0.03); Imm Gran Pct Auto 0.3 % (0.0-0.4); Lymphocytes Absolute Auto 2.2 X10*3/uL (1.2-4.9); Lymphocytes Percent Auto 24.1 % (20-40); Mean Corpuscular Hemoglobin 23.1 pg (27.0-33.0); Mean Corpuscular Volume 74.5 fL (80.0-98.0); Mean Platelet Volume 10.6 fL (9.4-12.3); Monocytes Absolute Auto 0.7 X10*3/uL (0.1-1.2); Monocytes Percent Auto 7.5 % (2-11); Neutrophils Absolute Auto 6.1 x10*3/uL (2.0-8.3); Neutrophils Percent Auto 66.1 % (45-73); Platelet Count 248 X10*3/uL (160-400); Red Blood Count 5.41 X10*6/uL (4.20-5.50); Red Cell Distribution Width 15.5 % (11.0-16.0); White Blood Count 9.2 X10*3/uL (4.8-10.8)
[2024-03-13 10:41] LABS: Appearance Urine Clear; Color Urine Yellow; Glucose Urine UA Negative (Negative); Leukocyte Esterase Urine Negative (Negative); Nitrite Urine Negative (Negative); Specific Gravity - Urine 1.025 (1.005-1.025); Urine Blood Negative (Negative); Urine Ketones Negative (Negative); Urine Protein Negative (Neg-Trace)
[2024-03-13 10:58] LABS: Estimated Average Glucose 128 mg/dL; Hemoglobin A1c % 6.1 % (<6.0)
[2024-03-13 11:06] LABS: Creatinine Urine 127.96 mg/dL; Microalbum/Creatinine Ratio Ur 5.4 ug/mg cr (<30)
[2024-03-13 11:26] LABS: Alanine Aminotransferase 18 U/L (0-31); Albumin Level 3.9 g/dL (3.5-5.0); Alkaline Phosphatase 60 U/L (39-117); Anion Gap 11 (12-20); Aspartate Amino Transferase 13 U/L (5-31); Bilirubin Total 0.4 mg/dL (0.0-1.0); Blood Urea Nitrogen 16 mg/dL (9-16); Calcium 9.4 mg/dL (8.4-10.2); Carbon Dioxide 26 mmol/L (22-29); Chloride 107 mmol/L (96-108); Cholesterol 163 mg/dL (<200); Estimated Glomerular Filt Rate > 60; Glucose Fasting 101 mg/dL (60-99); HDL Cholesterol 41 mg/dL (>40); Iron 66 mcg/dL (30-160); LDL Cholesterol Calculated 109 mg/dL (<100); Percent Iron Saturation 25 % (15-50); Potassium 4.2 mmol/L (3.3-5.1); Sodium 140 mmol/L (135-145); Total Iron Binding Capacity 261 mcg/dL (228-428); Total Protein 7.5 g/dL (6.5-8.0); Triglycerides 68 mg/dL (<150); Unsaturated Iron Binding 195 ug/dL
[2024-03-13 11:29] LABS: TSH reflex Free T4 1.64 uIU/mL (0.32-4.0); Vitamin D 25-OH Total 38.9 ng/mL (>30)
== END 2024-03-13 08:53 | disposition home or self-care (01) ==
LOC: HO.HMGCLDS 08:52
PROVIDERS: PCP Internal Medicine; Visit Provider Internal Medicine
DX: D64.9 Anemia, unspecified (principal); E78.00 Pure hypercholesterolemia, unspecified; E11.9 Type 2 diabetes mellitus without complications; R30.0 Dysuria; E55.9 Vitamin D deficiency, unspecified; D50.8 Other iron deficiency anemias
CPT/HCPCS: 36415; 80053; 80061; 81003; 82043; 82306; 82570; 83036; 83540; 84443; 85025

== ENCOUNTER 2024-03-15 10:28 | Outpatient (AMB) | payer OTHER, SELFPAY ==
[2024-03-15 10:30] VITALS: BP 100/62; PULSE 84; O2SAT 96; BMI 36.9
--- NOTE | 2024-03-15 10:30 | A.OFFPC_ITS ---
Vital Signs 03/15/24 10:30 Height 5 ft 5 in Weight 221 lb 8 oz BMI 36.9 BP 100/62 Blood Pressure Location Lt brachial Position Sitting Pulse 84 Pulse Source Pulse Oximeter Pulse Oximetry (%) 96 Oxygen Delivery Method Room Air Intake Visit Reasons: [facility] f/u Sign Erector Required: No Accompanied by: Self / Same As Patient Allergies No Known Allergies Allergy (Verified 03/15/24 10:59) Medication List - Last Reconciled 03/15/24 by Hilario Keen MD [id number] 50-300-40 mg (Fioricet) 1 cap PO Q8H PRN 30 days cholecalciferol (vitamin D3) 50 mcg PO DAILY 90 days clotrimazole-betamethasone 1-0.05 % 1 appl topical BID PRN 7 days hydrocortisone 1% 1 appl topical TID PRN ibuprofen 400 mg PO Q6H PRN indomethacin 50 mg PO TID PRN lisinopril 10 mg PO DAILY 90 days metformin ER 1,000 mg (2 x 500 mg) PO BID sitagliptin phosphate (Januvia) 100 mg PO DAILY 90 days sumatriptan succinate take 1 tab at onset of headache; if no relief, may repeat 1 tab after at least 2 hrs; max = 2 tabs/24 hrs PO 90 days tizanidine 4 mg PO Q8H PRN 10 days topiramate 25 mg PO BID triamcinolone acetonide 0.5% 1 appl topical TID PRN Tobacco use date assessed: 03/15/24 Dental Screening Dental Screen Date: 03/15/24 Did you have a dental visit in the last 12 months?: Yes Did you have a dental problem in the last 6 months where you did not have access to dental care?: No Was dental information given to patient?: Patient has dentist H[facility] HPI Details Patient comes in today for her follow up visit States that she feels okay She denies any headaches or dizziness Denies any chest pains, no SOB No nausea/vomiting, no abdominal pain No change in bowel habits noted Needs a few of her Rx refilled She had her follow up labs done a couple of days ago - to discuss her results [facility] Medical History (Updated 03/15/24 @ 12:34 by Hilario Keen MD) Alpha thalassemia silent carrier Obesity (BMI 30-39.9) Left hip pain Migraine Costochondritis Osteoarthritis of right hand Morbid obesity with BMI of 40.0-44.9, adult Vitamin D deficiency Complex endometrial hyperplasia with atypia Iron deficiency anemia Nonintractable headache Dyslipidemia Benign essential hypertension Type 2 diabetes mellitus without complication, with no history of insulin use Surgical History History of knee surgery History of total abdominal hysterectomy and bilateral salpingo-oophorectomy (~01/20/20) History of section History of tubal ligation Family History Father Hypertension Diabetes Mother Lupus Maternal Grandmother Uterine cancer Maternal Aunt Breast cancer Paternal Grandmother Uterine cancer Social History Housing: Apartment Alcohol intake: never Patient Tobacco Use Status: Never used Tobacco e-Cigarette/Vaping Use: Never Used Second Hand Smoke Exposure: Yes service: No Current occupational status: employed 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 1. Little interest or pleasure in doing things: not at all 2. Feeling down, depressed, or hopeless: not at all 3. Trouble falling or staying asleep, or sleeping too much: not at all 4. Feeling tired or having little energy: not at all 5. Poor appetite or overeating: not at all 6. Feeling bad about yourself - or that you are a failure or have let yourself or your family down: not at all 7. Trouble concentrating on things, such as reading the newspaper or watching television: not at all 8. Moving or speaking so slowly that other people could have noticed. Or the opposite - being so fidgety or restless that you have been moving around a lot more than usual: not at all 9. Thoughts that you would be better off or of hurting yourself in some way: not at all Total score: 0 Depression Screening Interpretation: Negative Depression Screening Done: Yes 95047 - PHQ-9 Billing: Yes Source: Developed by Katelynn Ward Kurt Kroenke and colleagues, with an educational mitra from [employer]. Thrive Questionnaire Date Thrive assessed: 03/15/24 I am a: Patient What is your living situation today?: I have a steady place to live Within the past 12 months, did the food you bought not last and you didn't have the money to get more?: Never true Within the past 12 months, did you worry whether your food would run out before you got money to buy more?: Never true Do you have trouble paying for medicines?: No Do you have trouble getting transportation to medical appointments?: No Do you have trouble taking care of your child, family member or friend?: No Do you have trouble with day-to-day activities such as bathing, preparing meals, shopping, managing finances, etc.?: No Are you currently unemployed and looking for a job?: No Are you interested in more education?: No Please select the resources that you would like help with: None Currently or been in a relationship where the following occur: No concerns reported THRIVE Score: 0 AUDIT C Alcohol Use Questionnaire (AUDIT-C) 1. How often do you have a drink containing alcohol?: Never 3. How often do you have six or more drinks on one occasion?: Never Total Score: 0 Score Reviewed/Action Taken: Yes SANA-7 AMB Questionnaire SANA-7 Date SANA - 7 assessed: 03/15/24 Feeling nervous, anxious, or on edge: 0 = Not at all Not being able to stop or control worryin = Not at all Worrying too much about different things: 0 = Not at all Trouble relaxin = Not at all Being so restless that it is hard to sit still: 0 = Not at all Becoming easily annoyed or irritable: 0 = Not at all Feeling afraid as if something awful might happen: 0 = Not at all Total SANA-7 score (0-4 normal; 5-9 mild; 10-14 moderate; 15-21 severe): 0 Source: Developed by Katelynn Ward Kurt Kroenke and colleagues, with an educational mitra from [employer]. Review of Systems Const Denies chills, Denies fatigue, Denies fever(s) and Denies headache(s) ENT Denies dysphagia, Denies dizziness, Denies otalgia, Denies headache(s), Denies neck pain, Denies odynophagia and Denies sore throat Card Denies chest pain, Denies rapid heart rate, Denies irregular heart rhythm, Denies palpitations and Denies dyspnea Resp Denies cough, Denies dyspnea and Denies wheezing GI Denies abdominal pain, Denies constipation, Denies dysphagia, Denies heartburn, Denies diarrhea, Denies nausea, Denies odynophagia and Denies vomiting Denies urinary frequency, Denies dysuria and Denies urinary incontinence Musc Denies back pain, Reports arthralgias (right knee, on and off and mostly mild recently) and Denies neck pain Skin/Breast Reports rash (on and off, itchy - see HPI) Neuro Denies dizziness, Denies headache(s) and Denies paresthesias Psych Denies anxiety and Denies depression Endo Denies fatigue and Denies palpitations Rojelio/Lymph Denies easy bruising Aller/Immun Denies wheezing Physical exam (Primary Care) Vital Signs: Last Vital Signs Pulse 84 03/15/24 10:30 BP 100/62 03/15/24 10:30 Pulse Ox 96 03/15/24 10:30 Oxygen Delivery Method Room Air 03/15/24 10:30 BMI result Body Mass Index 36.9 Tobacco/Smoking Status: Tobacco use Status Tobacco use date assessed 03/15/24 03/15/24 10:37 Patient Tobacco Use Status Never used Tobacco 03/15/24 10:31 e-Cigarette/Vaping Use Never Used 03/15/24 10:31 PHQ-9: PHQ-9 Score PHQ-9: Total score 0 03/15/24 11:30 Depression Screening Interpretation: Negative Thrive Assessment: Date of Thrive Assessment Date Thrive assessed 03/15/24 03/15/24 10:37 Currently or been in a relationship where the following occur: No concerns reported Const General: no acute distress and alert HENMT Ears: TM's normal bilaterally and EAC's normal Throat: Yes posterior oropharynx normal and Yes tonsils normal (no TP congestion) Neck Neck: Yes no lymphadenopathy and Yes supple Thyroid: Thyroid normal Resp Auscultation: clear to auscultation bilaterally, no rales and no wheezes Cardio Rate: regular rate Rhythm: regular rhythm Heart sounds: no murmurs GI Palpation (GI): Soft to palpation and nontender Auscultation: normal bowel sounds General: Yes no CVA tenderness Back/Spine/Pelvis Back: no CVA tenderness Thoracic/Lumbar Spine: No lumbar spinal tenderness Skin Rashes: no rashes Extrem General: Yes no clubbing, cyanosis or edema Right lower extremity: knee Details: tenderness (minimal) Location: of the pre- patellar area and normal ROM; no swelling Results Reviewed Results Reviewed: Laboratory Tests 03/13/24 03/13/24 09:00 09:05 WBC 9.2 Hgb 12.5 Hct 40.3 Plt Count 248 Sodium 140 Potassium 4.2 Creatinine 0.82 Estimated GFR > 60 Fasting Glucose 101 H Hemoglobin A1c % 6.1 H Calcium 9.4 D Iron 66 TIBC 261 % Saturation 25 AST 13 ALT 18 Triglycerides 68 Cholesterol 163 LDL Cholesterol, Calc 109 H HDL Cholesterol 41 25-OH Vitamin D Total 38.9 TSH 1.64 Ur Specific [place] 1.025 Urine Protein Negative Urine Glucose (UA) Negative Urine Blood Negative Urine Nitrite Negative Ur Leukocyte Esterase Negative Microalb/Creat Ratio 5.4 Assessment and Plan Assessment & Plan (1) Type 2 diabetes mellitus without complication, with no history of insulin use: Code(s): E11.9 - Type 2 diabetes mellitus without complications Plan: Her HgbA1c was at 6.1% on her labs done a couple of days ago (was previously at 6.6% a few months ago) - goal is at least <7.0% but ideally <6.5% Reinforced diabetic diet Continue Metformin ER 500 mg 2 tablets (1000 mg) BID and Januvia 100 mg QD (2) Benign essential hypertension: Code(s): I10 - Essential (primary) hypertension Plan: Reinforced low-sodium diet - goal is systolic BP of 120 mm or less Continue Lisinopril 10 mg QD (3) Dyslipidemia: Code(s): E78.5 - Hyperlipidemia, unspecified Plan: Results of her labs done a couple of days ago reviewed and discussed with patient Reinforced low cholesterol diet Her LDL cholesterol is down slightly to 109 mg/dl on her recent labs (from 112 mg/dl previously) - is reminded that this has to be ideally <100 mg/dl as she is a diabetic She declines again offer to start her on statins - prefers not to take Rx if she can avoid them Will recheck her fasting lipids and labs in 4 months for follow up (4) Alpha thalassemia silent carrier: Code(s): D56.3 - Thalassemia minor Plan: Patient's H/H have remained normal but her CBC continue to present with microcytosis and hypochromia (which have been present for a few years) and do not appear to be correcting with iron supplementation; RDW has also been normal on her labs Suspect that she may have alpha thalassemia (carrier or trait) - her recent Hgb electrophoresis suggested the same Her recent ferritin level was normal We sent her for iron function tests recently and these have all come back normal as well Patient is advised that she is a carrier and as she does not have anemia or any symptoms at all, no treatments or further testings are needed or indicated She does need to consider (either herself or her children) genetic counseling, and that this is mostly for the sake of her future generations (5) Migraine: Code(s): G43.909 - Migraine, unspecified, not intractable, without status migrainosus Qualifiers: Intractability: not intractable Migraine type: unspecified Status migr ainosus presence: without status migrainosus Qualified Code(s): G43.909 - Migraine, unspecified, not intractable, without status migrainosus Plan: She was diagnosed with migraine headaches by neurology a couple of years ago Continue Topiramate 25 mg BID for headache prophylaxis (Rx refilled) - headaches have been well-controlled on prophylactic Rx Continue Sumatriptan 100 mg PRN and/or Fioricet PRN for symptomatic treatment/relief (6) Gout: Code(s): M10.9 - Gout, unspecified Qualifiers: Chronicity: acute Gout etiology: unspecified cause Gout site: ankle Laterality: right Qualified Code(s): M10.9 - Gout, unspecified Plan: She was diagnosed with gout in the right ankle at the walk-in clinic last year; symptoms have since resolved with Tx with Indomethacin and she has had no recurrence of symptoms since Serum uric acid level was normal at 5.0 and 4.2 when checked a few months ago Reinforced low purine diet (7) Right knee pain: Code(s): M25.561 - Pain in right knee Qualifiers: Chronicity: unspecified Qualified Code(s): M25.561 - Pain in right knee Plan: X-rays of her right knee done a few months ago revealed satisfactory appearance of right total knee prosthesis although there are multiple loose bodies within the posterior knee joint but without significant change from the prior study States that her knee is actually feeling much better lately She was seen by orthopedics in November 2023 and was advised that she had patellar tendinitis and the home exercise program that she was instructed on has helped her a lot Follow up with orthopedics as scheduled (8) Vitamin D deficiency: Code(s): E55.9 - Vitamin D deficiency, unspecified Plan: Continue Vitamin D3 2000 units QD (9) Obesity (BMI 30-39.9): Code(s): E66.9 - Obesity, unspecified Plan: Reinforced diet/exercise as tolerated/lose weight - she has been able to lose over 10 pounds since her last visit Plan Follow up in 4 months Orders: Orders Hemoglobin A1c 4 Months E11.9 - Type 2 diabetes mellitus without complications Uric Acid 4 Months M10.9 - Gout, unspecified Complete Blood Count Auto Diff 4 Months D64.9 - Anemia, unspecified Lipid Panel 4 Months E78.00 - Pure hypercholesterolemia, unspecified Comprehensive [place]. Panel Fast 4 Months E78.00 - Pure hypercholesterolemia, unspecified Medications: Refilled metformin ER 1,000 mg (2 x 500 mg) PO BID 360 tabs 1RF E11.9 - Type 2 diabetes mellitus without complications sitagliptin phosphate (Januvia) 100 mg PO DAILY 90 days 90 tabs 1RF E11.9 - Type 2 diabetes mellitus without complications lisinopril 10 mg PO DAILY 90 days 90 tabs 1RF I10 - Essential (primary) hypertension topiramate 25 mg PO BID 180 tabs 1RF R51.9 - Headache, unspecified Coding Level of Care Code Est Pt Level 4 (25932) Complex EM visit Add On G2211 Diagnoses Type 2 diabetes mellitus without complication, with no history of insulin use E 11.9 Benign essential hypertension I10 Dyslipidemia E78.5 Alpha thalassemia silent carrier D56.3 Migraine without status migrainosus, not intractable, unspecified migraine type G43.909 Intractability: not intractable Migraine type: unspecified Status migrainosus presence: without status migrainosus Acute gout of right ankle, unspecified cause M10.9 Chronicity: acute Gout etiology: unspecified cause Gout site: ankle Laterality: right Right knee pain, unspecified chronicity M25.561 Chronicity: unspecified Vitamin D deficiency E55.9 Obesity (BMI 30-39.9) E66.9
== END 2024-03-15 11:10 | disposition home or self-care (01) ==
PROVIDERS: PCP Internal Medicine; Visit Provider Internal Medicine
DX: E11.9 Type 2 diabetes mellitus without complications (principal); I10 Essential (primary) hypertension; E78.5 Hyperlipidemia, unspecified; D56.3 Thalassemia minor; G43.909 Migraine, unspecified, not intractable, without status migrainosus; M10.9 Gout, unspecified; M25.561 Pain in right knee; E55.9 Vitamin D deficiency, unspecified
CPT/HCPCS: 99214; G2211

== ENCOUNTER 2024-05-08 09:51 | Outpatient (AMB) | payer OTHER, SELFPAY ==
--- NOTE | 2024-05-08 10:08 | AM.OFFWIN_ITS ---
Intake Vital Signs 05/08/24 10:09 Height 5 ft 5 in Weight 222 lb 6 oz BMI 37.0 BP 112/78 Blood Pressure Location Lt brachial Position Sitting Temp 98.5 F Temp Source Oral Intake Visit Reasons: EP cold & cough for over a month Patient Tobacco Use Status: Never used Tobacco Allergies No Known Allergies Allergy (Verified 05/08/24 10:16) Do you need a note to return to daycare/school/sports/work: No HPI EP cold & cough for over a month HPI Details This note is constructed using voice recognition software. While every effort has been made to ensure accuracy, cadmium liquor maker errors may have been included. The patient is a 54 year old female who presents to the clinic today with cough for the past month. She denies fever, chills, shortness of breath, any other URI symptoms. She notes that she has tried cough suppressants and they have not helped. She feels that the cough is kind of a dry tickle, and does not produce anything. She has been on lisinopril for several years and has tolerated it quite well. [facility] Medical History (Updated 03/15/24 @ 12:34 by Hilario Keen MD) Alpha thalassemia silent carrier Obesity (BMI 30-39.9) Left hip pain Migraine Costochondritis Osteoarthritis of right hand Morbid obesity with BMI of 40.0-44.9, adult Vitamin D deficiency Complex endometrial hyperplasia with atypia Iron deficiency anemia Nonintractable headache Dyslipidemia Benign essential hypertension Type 2 diabetes mellitus without complication, with no history of insulin use Surgical History History of knee surgery History of total abdominal hysterectomy and bilateral salpingo-oophorectomy (~01/20/20) History of section History of tubal ligation Family History Father Hypertension Diabetes Mother Lupus Maternal Grandmother Uterine cancer Maternal Aunt Breast cancer Paternal Grandmother Uterine cancer Social History Housing: Apartment Alcohol intake: never Patient Tobacco Use Status: Never used Tobacco e-Cigarette/Vaping Use: Never Used Second Hand Smoke Exposure: Yes service: No Current occupational status: employed 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, 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 Cognitive needs: Yes (cane) Hearing needs: No Vision needs: Yes (glasses) Female Reproductive History Menstrual Age of Menarche: 14 Review of Systems Const All systems reviewed & are unremarkable except as noted in HPI and below Physical Exam Vital Signs: Last Vital Signs Temp 98.5 F 05/08/24 10:09 BP 112/78 05/08/24 10:09 BMI result Body Mass Index 37.0 Const General: cooperative, healthy appearing, comfortable and no acute distress Orientation/consciousness: patient oriented x3 Limitations: no limitations HEENT Head: Yes normal to inspection Ears: hearing grossly normal bilaterally, external ears normal and TM abnormal retracted General nose exam: Normal external nose present, No nasal discharge present and Abnormal mucous membranes and turbinates present boggy and pale Face and sinus: Yes normal facial exam and Yes sinuses nontender Mouth: Normal oral and palatal mucosa present and moist mucous membranes Throat: Yes tonsils normal, Yes uvula midline, Yes posterior oropharynx abnormal (Erythema), Yes postnasal drainage and Yes cobblestoning Eyes General: appearance normal, both eyes and all related structures Neck Neck: Yes normal visual inspection Resp Effort & Inspection: normal respiratory effort, able to speak in complete sentences, Actively coughing, no respiratory distress, not tachypneic, no tripod positioning and no use of accessory muscles Auscultation: clear to auscultation bilaterally Cardio Rate: regular rate Rhythm: regular rhythm Heart sounds: normal S1 and S2 Skin General skin exam: no rashes or lesions noted Neuro General: patient oriented x3 Extrem General: Yes normal to inspection and Yes no clubbing, cyanosis or edema Assessment & Plan Assessment & Plan (1) Allergic rhinitis: Code(s): J30.9 - Allergic rhinitis, unspecified Qualifiers: Allergic rhinitis trigger: unspecified Allergic rhinitis seasonality: unspecified Qualified Code(s): J30.9 - Allergic rhinitis, unspecified Plan: Supportive measures encouraged and reviewed. Advised patient to try a Flonase nasal spray and second-generation antihistamine such as Zyrtec, Claritin, Victorina or similar. Advised consideration of sinus rinse if needed. Advised patient to follow up with primary care provider with worsening or failure to resolve. Plan See above for full details and plan. Medications: New loratadine (Claritin) 10 mg PO DAILY PRN 14 tabs 0RF allergy symptoms fluticasone propionate 50 mcg/actuation administer into each nostril 1 spray intranasal BID 16 grams 0RF Coding Level of Care Code Est Pt Level 3 (81134) Diagnoses Allergic rhinitis, unspecified seasonality, unspecified trigger J30.9 Allergic rhinitis trigger: unspecified Allergic rhinitis seasonality: unspecified
[2024-05-08 10:09] VITALS: BP 112/78; TEMP 36.9; BMI 37.0
== END 2024-05-08 11:18 | disposition home or self-care (01) ==
PROVIDERS: PCP Internal Medicine; Visit Provider Registered Nurse
DX: J30.9 Allergic rhinitis, unspecified (principal)

== ENCOUNTER → 2024-05-08 09:51 | Outpatient (BNVA) | payer OTHER, SELFPAY | PROVIDERS: PCP Internal Medicine; Visit Provider Registered Nurse | DX: J30.9 Allergic rhinitis, unspecified (principal) | CPT/HCPCS: 99212 ==

== ENCOUNTER 2024-07-31 10:52 | Outpatient (AMB) | payer OTHER, SELFPAY ==
--- NOTE | 2024-07-31 11:07 | MHC.PC.OV ---
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 Accompanied by: Self / Same As Patient Allergies No Known Allergies Allergy (Verified 07/31/24 11:26) Medication List - Last Reconciled 07/31/24 by Hilario Keen MD [id number] [id number] mg (Fioricet) 1 cap PO Q8H PRN 30 days cholecalciferol (vitamin D3) 50 mcg PO DAILY 90 days fluticasone propionate 50 mcg/actuation 1 spray intranasal BID hydrocortisone 1% 1 appl topical TID PRN ibuprofen 400 mg PO Q6H PRN indomethacin 50 mg PO TID PRN lisinopril 10 mg PO DAILY 90 days loratadine (Claritin) 10 mg PO DAILY PRN metformin ER 1,000 mg (2 x 500 mg) PO BID sitagliptin phosphate (Januvia) 100 mg PO DAILY 90 days sumatriptan succinate take 1 tab at onset of headache; if no relief, may repeat 1 tab after at least 2 hrs; max = 2 tabs/24 hrs PO 90 days tizanidine 4 mg PO Q8H PRN 10 days topiramate 25 mg PO BID triamcinolone acetonide 0.5% 1 appl topical TID PRN Tobacco use date assessed: 07/31/24 Dental Screening Dental Screen Date: 07/31/24 Did you have a dental visit in the last 12 months?: Yes Did you have a dental problem in the last 6 months where you did not have access to dental care?: No Was dental information given to patient?: Patient has dentist HPI 4 month follow up HPI Details Patient comes in today for her follow up visit States that she feels okay She denies any headaches or dizziness Denies any chest pains, no SOB No nausea/vomiting, no abdominal pain No change in bowel habits noted She had her follow up labs done a couple of weeks ago - to discuss her results [facility] Medical History Alpha thalassemia silent carrier Obesity (BMI 30-39.9) Left hip pain Migraine Costochondritis Osteoarthritis of right hand Morbid obesity with BMI of 40.0-44.9, adult Vitamin D deficiency Complex endometrial hyperplasia with atypia Iron deficiency anemia Nonintractable headache Dyslipidemia Benign essential hypertension Type 2 diabetes mellitus without complication, with no history of insulin use Surgical History History of knee surgery History of total abdominal hysterectomy and bilateral salpingo-oophorectomy (~01/20/20) History of section History of tubal ligation Family History Father Hypertension Diabetes Mother Lupus Maternal Grandmother Uterine cancer Maternal Aunt Breast cancer Paternal Grandmother Uterine cancer Social History Housing: Apartment Alcohol intake: never Patient Tobacco Use Status: Never used Tobacco e-Cigarette/Vaping Use: Never Used Second Hand Smoke Exposure: Yes service: No Current occupational status: employed 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 1. Little interest or pleasure in doing things: not at all 2. Feeling down, depressed, or hopeless: not at all 3. Trouble falling or staying asleep, or sleeping too much: not at all 4. Feeling tired or having little energy: not at all 5. Poor appetite or overeating: not at all 6. Feeling bad about yourself - or that you are a failure or have let yourself or your family down: not at all 7. Trouble concentrating on things, such as reading the newspaper or watching television: not at all 8. Moving or speaking so slowly that other people could have noticed. Or the opposite - being so fidgety or restless that you have been moving around a lot more than usual: not at all 9. Thoughts that you would be better off or of hurting yourself in some way: not at all Total score: 0 Depression Screening Interpretation: Negative Depression Screening Done: Yes 17008 - PHQ-9 Billing: Yes Source: Developed by Drs. David Harris, Anthony Pascal and colleagues, with an educational mitra from [employer]. Thrive Questionnaire Date Thrive assessed: 07/31/24 I am a: Patient What is your living situation today?: I have a steady place to live Within the past 12 months, did the food you bought not last and you didn't have the money to get more?: Never true Within the past 12 months, did you worry whether your food would run out before you got money to buy more?: Never true Do you have trouble paying for medicines?: No Do you have trouble getting transportation to medical appointments?: No Do you have trouble paying your heating and electricity bill?: No Do you have trouble taking care of your child, family member or friend?: No Do you have trouble with day-to-day activities such as bathing, preparing meals, shopping, managing finances, etc.?: No Are you currently unemployed and looking for a job?: No Are you interested in more education?: No Please select the resources that you would like help with: None Currently or been in a relationship where the following occur: No concerns reported THRIVE Score: 0 AUDIT C Alcohol Use Questionnaire (AUDIT-C) 1. How often do you have a drink containing alcohol?: Never 3. How often do you have six or more drinks on one occasion?: Never Total Score: 0 Score Reviewed/Action Taken: Yes SANA-7 AMB Questionnaire SANA-7 Date SANA - 7 assessed: 07/31/24 Feeling nervous, anxious, or on edge: 0 = Not at all Not being able to stop or control worryin = Not at all Worrying too much about different things: 0 = Not at all Trouble relaxin = Not at all Being so restless that it is hard to sit still: 0 = Not at all Becoming easily annoyed or irritable: 0 = Not at all Feeling afraid as if something awful might happen: 0 = Not at all Total SANA-7 score (0-4 normal; 5-9 mild; 10-14 moderate; 15-21 severe): 0 Source: Developed by Katelynn Ward Kurt Kroenke and colleagues, with an educational mitra from [employer]. Review of Systems Const Denies chills, Denies fatigue, Denies fever(s) and Denies headache(s) ENT Denies dysphagia, Denies dizziness, Denies otalgia, Denies headache(s), Denies neck pain, Denies odynophagia and Denies sore throat Card Denies chest pain, Denies rapid heart rate, Denies irregular heart rhythm, Denies palpitations and Denies dyspnea Resp Denies cough, Denies dyspnea and Denies wheezing GI Denies abdominal pain, Denies constipation, Denies dysphagia, Denies heartburn, Denies diarrhea, Denies nausea, Denies odynophagia and Denies vomiting Denies urinary frequency, Denies dysuria and Denies urinary incontinence Musc Denies back pain, Reports arthralgias (right knee, on and off and mostly mild recently) and Denies neck pain Skin/Breast Reports rash (on and off, itchy - see HPI) Neuro Denies dizziness, Denies headache(s) and Denies paresthesias Psych Denies anxiety and Denies depression Endo Denies fatigue and Denies palpitations Rojelio/Lymph Denies easy bruising Aller/Immun Denies wheezing Physical exam (Primary Care) Vital Signs: Last Vital Signs Pulse 88 07/31/24 11:08 BP 116/80 07/31/24 11:08 Pulse Ox 97 07/31/24 11:08 Oxygen Delivery Method Room Air 07/31/24 11:08 BMI result Body Mass Index 37.1 Tobacco/Smoking Status: Tobacco use Status Tobacco use date assessed 07/31/24 07/31/24 11:13 Patient Tobacco Use Status Never used Tobacco 07/31/24 11:13 e-Cigarette/Vaping Use Never Used 07/31/24 11:13 PHQ-9: PHQ-9 Score PHQ-9: Total score 0 07/31/24 11:27 Depression Screening Interpretation: Negative Thrive Assessment: Date of Thrive Assessment Date Thrive assessed 07/31/24 07/31/24 11:13 Currently or been in a relationship where the following occur: No concerns reported Const General: no acute distress and alert HENMT Ears: TM's normal bilaterally and EAC's normal Throat: Yes posterior oropharynx normal and Yes tonsils normal (no TP congestion) Neck Neck: Yes supple and No lymphadenopathy Thyroid: Thyroid normal Resp Auscultation: clear to auscultation bilaterally, no rales and no wheezes Cardio Rate: regular rate Rhythm: regular rhythm Heart sounds: no murmurs GI Palpation (GI): Soft to palpation and nontender Auscultation: normal bowel sounds General: Yes no CVA tenderness Back/Spine/Pelvis Back: no CVA tenderness Thoracic/Lumbar Spine: No lumbar spinal tenderness Skin Rashes: no rashes Extrem General: Yes no clubbing, cyanosis or edema Right lower extremity: knee Details: tenderness (minimal) Location: of the pre-patellar area and normal ROM; no swelling Results Reviewed Results Reviewed: Laboratory Tests 07/18/24 10:10 WBC 10.1 Hgb 12.4 Hct 40.1 Plt Count 255 Sodium 139 Potassium 4.1 Creatinine 0.76 Estimated GFR > 60 Fasting Glucose 97 Hemoglobin A1c % 6.2 H Uric Acid 4.6 Calcium 8.6 D AST 19 ALT 14 Triglycerides 89 Cholesterol 161 LDL Cholesterol, Calc 105 H HDL Cholesterol 39 L Coding Level of Care Code Est Pt Level 4 (61953) Diagnoses Type 2 diabetes mellitus without complication, with no history of insulin use E11.9 Benign essential hypertension I10 Dyslipidemia E78.5 Alpha thalassemia silent carrier D56.3 Migraine without status migrainosus, not intractable, unspecified migraine type G43.909 Migraine type: unspecified Status migrainosus presence: without status migrainosus Intractability: not intractable Acute gout of right ankle, unspecified cause M10.9 Gout site: ankle Gout etiology: unspecified cause Chronicity: acute Laterality: right Vitamin D deficiency E55.9 Right knee pain, unspecified chronicity M25.561 Chronicity: unspecified Obesity (BMI 30-39.9) E66.9 Additional Codes PHQ-9 - 65946 - PHQ-9 Billing: Yes ([id number]) Assessment & Plan Assessment & Plan (1) Type 2 diabetes mellitus without complication, with no history of insulin use: Code(s): E11.9 - Type 2 diabetes mellitus without complications Category: Medical Plan: Patient's HgbA1c was at 6.2% on her labs done a couple of weeks ago (was previously at 6.1% a few months ago) - goal is at least <7.0% but ideally <6.5% Reinforced diabetic diet Continue Metformin ER 500 mg 2 tablets (1000 mg) BID and Januvia 100 mg QD (2) Benign essential hypertension: Code(s): I10 - Essential (primary) hypertension Category: Medical Plan: Reinforced low-sodium diet - goal is systolic BP of 120 mm or less Continue Lisinopril 10 mg QD (3) Dyslipidemia: Code(s): E78.5 - Hyperlipidemia, unspecified Category: Medical Plan: Results of her labs done a couple of weeks ago reviewed and discussed with patient Reinforced low cholesterol diet Her LDL cholesterol is down slightly again to 105 mg/dl on her recent labs (from 109 mg/dl previously) - she is reminded that this has to be ideally <100 mg/dl as she is a diabetic She declines again offer to start her on statins - prefers not to take Rx if she can avoid them Will recheck her fasting lipids and labs in 4 months for follow up (4) Alpha thalassemia silent carrier: Code(s): D56.3 - Thalassemia minor Category: Medical Plan: Patient's H/H have remained normal but her CBC continue to present with microcytosis and hypochromia (which have been present for a few years) and do not appear to be correcting with iron supplementation; RDW has also been normal on her labs Suspect that she may have alpha thalassemia (carrier or trait) - her recent Hgb electrophoresis suggested the same Her recent ferritin level was normal We sent her for iron function tests recently and these have all come back normal as well Patient is advised that she is a carrier and as she does not have anemia or any symptoms at all, no treatments or further testings are needed or indicated She does need to consider (either herself or her children) genetic counseling, and that this is mostly for the sake of her future generations (5) Migraine: Code(s): G43.909 - Migraine, unspecified, not intractable, without status migrainosus Category: Medical Qualifiers: Migraine type: unspecified Status migrainosus presence: without status migrainosus Intractability: not intractable Qualified Code(s): G43.909 - Migraine, unspecified, not intractable, without status migrainosus Plan: She was diagnosed with migraine headaches by neurology a couple of years ago Continue Topiramate 25 mg BID for headache prophylaxis - her headaches have been well-controlled on prophylactic Rx Continue Sumatriptan 100 mg PRN and/or Fioricet PRN for symptomatic treatment/relief (6) Gout: Code(s): M10.9 - Gout, unspecified Category: Medical Qualifiers: Gout site: ankle Gout etiology: unspecified cause Chronicity: acute Laterality: right Qualified Code(s): M10.9 - Gout, unspecified Plan: She was diagnosed with gout in the right ankle at the walk-in clinic a couple of years ago; symptoms have since resolved with Tx with Indomethacin and she has had no recurrence of symptoms since Serum uric acid level was normal at 5.0 and 4.2 when checked a few months ago Reinforced low purine diet (7) Vitamin D deficiency: Code(s): E55.9 - Vitamin D deficiency, unspecified Category: Medical Plan: Continue Vitamin D3 2000 units QD (8) Right knee pain: Code(s): M25.561 - Pain in right knee Category: Medical Qualifiers: Chronicity: unspecified Qualified Code(s): M25.561 - Pain in right knee Plan: X-rays of her right knee done a few months ago revealed satisfactory appearance of right total knee prosthesis although there are multiple loose bodies within the posterior knee joint but without significant change from the prior study States that her knee is actually feeling much better lately She was seen by orthopedics in November 2023 and was advised that she had patellar tendinitis and the home exercise program that she was instructed on has helped her a lot Follow up with orthopedics as scheduled (9) Obesity (BMI 30-39.9): Code(s): E66.9 - Obesity, unspecified Category: Medical Plan: Reinforced diet/exercise as tolerated/lose weight Plan Follow up in 4 months Orders: Orders Hemoglobin A1c 4 Months E11.9 - Type 2 diabetes mellitus without complications Lipid Panel 4 Months E78.00 - Pure hypercholesterolemia, unspecified Complete Blood Count Auto Diff 4 Months D64.9 - Anemia, unspecified Comprehensive [place]. Panel Fast 4 Months E78.00 - Pure hypercholesterolemia, unspecified Microalbumin, Random (w Creat) 4 Months E11.9 - Type 2 diabetes mellitus without complications UA CC w/rflx Micro + Cult 4 Months R30.0 - Dysuria TSH reflex Free T4 4 Months E78.00 - Pure hypercholesterolemia, unspecified Vitamin D 25-OH Total 4 Months E55.9 - Vitamin D deficiency, unspecified
[2024-07-31 11:08] VITALS: BP 116/80; PULSE 88; O2SAT 97; BMI 37.1
== END 2024-07-31 11:35 | disposition home or self-care (01) ==
PROVIDERS: PCP Internal Medicine; Visit Provider Internal Medicine
DX: E11.69 Type 2 diabetes mellitus with other specified complication (principal); I10 Essential (primary) hypertension; E66.9 Obesity, unspecified; Z68.37 Body mass index [BMI] 37.0-37.9, adult; E78.5 Hyperlipidemia, unspecified; D56.3 Thalassemia minor; G43.909 Migraine, unspecified, not intractable, without status migrainosus; M10.9 Gout, unspecified; E55.9 Vitamin D deficiency, unspecified; M25.561 Pain in right knee

== ENCOUNTER → 2024-07-31 10:52 | Outpatient (BNVA) | payer OTHER, SELFPAY | PROVIDERS: PCP Internal Medicine; Visit Provider Internal Medicine | DX: E11.9 Type 2 diabetes mellitus without complications (principal); I10 Essential (primary) hypertension; E78.5 Hyperlipidemia, unspecified; D56.3 Thalassemia minor; G43.909 Migraine, unspecified, not intractable, without status migrainosus; M10.9 Gout, unspecified; E55.9 Vitamin D deficiency, unspecified; M25.561 Pain in right knee; E66.9 Obesity, unspecified | CPT/HCPCS: 96127; 99212 ==

== ENCOUNTER 2024-12-31 08:14 | Outpatient (REF) | payer OTHER, SELFPAY ==
--- OUTSIDE RECORDS SUMMARY | 2024-12-31 08:19 | XMS_ITS | Clinical Summary ---
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 Name Role Phone Unavailable Primary Care Provider Unavailabl e Social History Tobacco Use Types Packs/Day Years Used Date Smoking Tobacco: Never Assessed Comments Unknown Sex and Gender Information Value Date Recorded Sex Assigned at Not on file Legal Sex Female 3:04 PM EST Gender Identity Not on file Sexual Orientation Not on file Plan of Treatment Health Maintenance Due Date Last Done Comments Breast Cancer Screening 1970 DTaP,Tdap,and Td Vaccines (1 - Tdap) 1989 Hepatitis B Vaccines (1 of 3 - 19+ 3-dose series) 1989 Cervical Cancer Screening: P ap Smear 1991 Pneumococcal Vaccine: 50+ Ye ars (1 of 1 - PCV) 01/27/2020 Zoster Vaccines (1 of 2) 01/27/2020 Colorectal Cancer Screening: Colonoscopy 06/01/2022 Depression Screening 06/01/2022 HIV Screening 06/01/2022 Hepatitis C Screening 06/01/2022 Social Influencers of Health Screening 06/01/2022 COVID-19 Vaccine ( - 2023-2 5 season) 2024 Influenza Vaccine (#1) 2025 HIB Vaccines Aged Out No longer eligi ble based on patient's age to complete this topic HPV Vaccines Aged Out No longer eligi ble based on patient's age to complete this topic Hepatitis A Vaccines Aged Out No long er eligible based on patient's age to complete this topic IPV Vaccines Aged Out No longer eligi ble based on patient's age to complete this topic MMR Vaccines Aged Out No longer eligi ble based on patient's age to complete this topic Meningococcal ACWY Vaccine Aged Out N o longer eligible based on patient's age to complete this topic Meningococcal B Vaccine Aged Out No l onger eligible based on patient's age to complete this topic Pneumococcal Vaccine: Pediat rics (0 to 5 Years) and At-Risk Patients (6 to 64 Years) Aged Out No longer eligible b ased on patient's age to complete this topic RSV Immunization Patients Un og 20 months Aged Out No longer eligible b ased on patient's age to complete this topic Varicella Vaccines Aged Out No longer eligible based on patient's age to complete this topic
[2024-12-31 08:31] LABS: MANUAL DIFF FLAG NO
[2024-12-31 08:59] LABS: Hematocrit 42.9 % (37.0-47.0); Hemoglobin 13.1 g/dl (12.0-16.0); Imm Gran Abs Auto 0.02 X10*3/uL (0.00-0.03); Imm Gran Pct Auto 0.3 % (0.0-0.4); Lymphocytes Absolute Auto 1.9 X10*3/uL (1.2-4.9); Mean Corpuscular HGB Conc 30.5 g/dl (31.0-35.0); Mean Corpuscular Hemoglobin 22.5 pg (27.0-33.0); Mean Corpuscular Volume 73.8 fL (80.0-98.0); NRBC Abs Auto 0.000 X10*3/uL (0.0-0.012); NRBC Pct Auto 0.0 /100WBC (0.0-0.2); Platelet Count 230 X10*3/uL (160-400); Red Blood Count 5.81 X10*6/uL (4.20-5.50); White Blood Count 6.6 X10*3/uL (4.8-10.8)
[2024-12-31 09:08] LABS: Hemoglobin A1C 160.3823 umol/L; Total Hemoglobin (HGBA1C) 3429.4700 umol/L
[2024-12-31 09:24] LABS: Appearance Urine Clear; Glucose Urine UA >=1000 mg/dL (Negative); PH 5.5 (5.0-9.0); Specific Gravity - Urine >= 1.030 (1.005-1.025); UMIC TRIGGER UACC YES
[2024-12-31 09:43] LABS: Alanine Aminotransferase 17 U/L (0-31); Albumin Level 4.0 g/dL (3.5-5.0); Alkaline Phosphatase 52 U/L (39-117); Anion Gap 12 (12-20); Aspartate Amino Transferase 16 U/L (5-31); Blood Urea Nitrogen 17 mg/dL (9-16); Calcium 9.0 mg/dL (8.4-10.2); Carbon Dioxide 25 mmol/L (22-29); Chloride 107 mmol/L (96-108); Cholesterol 176 mg/dL (<200); Estimated Glomerular Filt Rate > 60; HDL Cholesterol 39 mg/dL (>40); Potassium 4.1 mmol/L (3.3-5.1); Sodium 140 mmol/L (135-145); Total Protein 7.3 g/dL (6.5-8.0); Triglycerides 116 mg/dL (<150)
[2024-12-31 10:02] LABS: Microalbum/Creatinine Ratio Ur 5.8 ug/mg cr (<30)
== END 2024-12-31 08:15 | disposition home or self-care (01) ==
LOC: HO.LAB 08:14
PROVIDERS: PCP Internal Medicine; Visit Provider Internal Medicine
DX: E11.9 Type 2 diabetes mellitus without complications (principal); E55.9 Vitamin D deficiency, unspecified; E78.00 Pure hypercholesterolemia, unspecified; D64.9 Anemia, unspecified
CPT/HCPCS: 36415; 80053; 80061; 81001; 82043; 82306; 82570; 83036; 84443; 85025

== ENCOUNTER 2025-01-01 09:55 | Outpatient (AMB) | payer OTHER, SELFPAY ==
[2025-01-01 10:02] VITALS: BP 122/78; PULSE 95; O2SAT 98; BMI 37.4
--- NOTE | 2025-01-01 10:02 | MHC.PC.OV ---
Vital Signs 01/01/25 10:02 Height 5 ft 5 in Weight 224 lb 8 oz BMI 37.4 BP 122/78 Blood Pressure Location Lt brachial Position Sitting Pulse 95 Pulse Source Pulse Oximeter Pulse Oximetry (%) 98 Oxygen Delivery Method Room Air Intake Visit Reasons: DM, HTN, hyperlipidemia Block Setter [place] Required: No Accompanied by: Self / Same As Patient Allergies No Known Allergies Allergy (Verified 01/01/25 10:26) Medication List - Last Reconciled 01/01/25 by Hilario Keen MD [id number] 50-300-40 mg (Fioricet) 1 cap PO Q8H PRN 30 days cholecalciferol (vitamin D3) 50 mcg PO DAILY 90 days empagliflozin (Jardiance) 10 mg PO QAM 30 days fluticasone propionate 50 mcg/actuation 1 spray intranasal BID hydrocortisone 1% 1 appl topical TID PRN ibuprofen 400 mg PO Q6H PRN indomethacin 50 mg PO TID PRN lisinopril 10 mg PO DAILY 90 days loratadine (Claritin) 10 mg PO DAILY PRN metformin ER 1,000 mg (2 x 500 mg) PO BID sitagliptin phosphate (Januvia) 100 mg PO DAILY 90 days sumatriptan succinate take 1 tab at onset of headache; if no relief, may repeat 1 tab after at least 2 hrs; max = 2 tabs/24 hrs PO 90 days tizanidine 4 mg PO Q8H PRN 10 days topiramate 25 mg PO BID triamcinolone acetonide 0.5% 1 appl topical TID PRN Tobacco use date assessed: 01/01/25 Dental Screening Dental Screen Date: 01/01/25 Did you have a dental visit in the last 12 months?: Yes Did you have a dental problem in the last 6 months where you did not have access to dental care?: No Was dental information given to patient?: Patient has dentist HPI DM, HTN, hyperlipidemia HPI Details Patient comes in today for her follow up visit States that she feels okay Adds that things were hectic for her for a while as her mother was admitted to the hospital a few weeks ago but she ultimately about 3 weeks ago Patient denies any headaches or dizziness Denies any chest pains, no increased SOB No nausea/vomiting, no abdominal pain No change in bowel habits noted She had her follow up labs done yesterday - to discuss her results [facility] Medical History Alpha thalassemia silent carrier Obesity (BMI 30-39.9) Left hip pain Migraine Costochondritis Osteoarthritis of right hand Morbid obesity with BMI of 40.0-44.9, adult Vitamin D deficiency Complex endometrial hyperplasia with atypia Iron deficiency anemia Nonintractable headache Dyslipidemia Benign essential hypertension Type 2 diabetes mellitus without complication, with no history of insulin use Surgical History History of knee surgery History of total abdominal hysterectomy and bilateral salpingo-oophorectomy (~01/20/20) History of section History of tubal ligation Family History Father Hypertension Diabetes Mother Lupus Maternal Grandmother Uterine cancer Maternal Aunt Breast cancer Paternal Grandmother Uterine cancer Social History Housing: Apartment Alcohol intake: never Patient Tobacco Use Status: Never used Tobacco e-Cigarette/Vaping Use: Never Used Second Hand Smoke Exposure: Yes service: No Current occupational status: employed 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 1. Little interest or pleasure in doing things: not at all 2. Feeling down, depressed, or hopeless: several days 3. Trouble falling or staying asleep, or sleeping too much: not at all 4. Feeling tired or having little energy: several days 5. Poor appetite or overeating: not at all 6. Feeling bad about yourself - or that you are a failure or have let yourself or your family down: not at all 7. Trouble concentrating on things, such as reading the newspaper or watching television: not at all 8. Moving or speaking so slowly that other people could have noticed. Or the opposite - being so fidgety or restless that you have been moving around a lot more than usual: not at all 9. Thoughts that you would be better off or of hurting yourself in some way: not at all Total score: 2 Depression Screening Interpretation: Negative Depression Screening Done: Yes 37316 - PHQ-9 Billing: Yes Source: Developed by Drs. David Harris, Katelynn Mueller, Anthony Downing and colleagues, with an educational mitra from [employer]. Thrive Questionnaire Date Thrive assessed: 01/01/25 I am a: Patient What is your living situation today?: I have a steady place to live Within the past 12 months, did the food you bought not last and you didn't have the money to get more?: Never true Within the past 12 months, did you worry whether your food would run out before you got money to buy more?: Never true Do you have trouble paying for medicines?: I choose not to answer this question Do you have trouble getting transportation to medical appointments?: No Do you have trouble paying your heating and electricity bill?: I choose not to answer this question Do you have trouble taking care of your child, family member or friend?: No Do you have trouble with day-to-day activities such as bathing, preparing meals, shopping, managing finances, etc.?: No Are you currently unemployed and looking for a job?: No Are you interested in more education?: No Please select the resources that you would like help with: None Currently or been in a relationship where the following occur: No concerns reported THRIVE Score: 0 AUDIT C Alcohol Use Questionnaire (AUDIT-C) 1. How often do you have a drink containing alcohol?: Never 3. How often do you have six or more drinks on one occasion?: Never Total Score: 0 Score Reviewed/Action Taken: Yes SANA-7 AMB Questionnaire SANA-7 Date SANA - 7 assessed: 01/01/25 Feeling nervous, anxious, or on edge: 0 = Not at all Not being able to stop or control worryin = Not at all Worrying too much about different things: 1 = Several days Trouble relaxin = Several days Being so restless that it is hard to sit still: 0 = Not at all Becoming easily annoyed or irritable: 1 = Several days Feeling afraid as if something awful might happen: 0 = Not at all Total SANA-7 score (0-4 normal; 5-9 mild; 10-14 moderate; 15-21 severe): 3 Source: Developed by Drs. David Harris, Katelynn Mueller, Anthony Downing and colleagues, with an educational mitra from [employer]. Review of Systems Const Denies chills, Denies fatigue, Denies fever(s) and Denies headache(s) ENT Denies dysphagia, Denies dizziness, Denies otalgia, Denies headache(s), Denies neck pain, Denies odynophagia and Denies sore throat Card Denies chest pain, Denies rapid heart rate, Denies irregular heart rhythm, Denies palpitations and Denies dyspnea Resp Denies chest congestion, Denies cough, Denies dyspnea and Denies wheezing GI Denies abdominal pain, Denies constipation, Denies dysphagia, Denies heartburn, Denies diarrhea, Denies nausea, Denies odynophagia and Denies vomiting Denies urinary frequency, Denies dysuria, Denies urinary incontinence and Denies urinary urgency Musc Denies back pain, Reports arthralgias (right knee, on and off - mostly mild ) and Denies neck pain Skin/Breast Denies rash Neuro Denies dizziness, Denies headache(s) and Denies paresthesias Psych Denies anxiety and Denies depression Endo Denies fatigue and Denies palpitations Rojelio/Lymph Denies easy bruising Aller/Immun Denies wheezing Physical exam (Primary Care) Vital Signs: Last Vital Signs Pulse 95 01/01/25 10:02 BP 122/78 01/01/25 10:02 Pulse Ox 98 01/01/25 10:02 Oxygen Delivery Method Room Air 01/01/25 10:02 BMI result Body Mass Index 37.4 Tobacco/Smoking Status: Tobacco use Status Tobacco use date assessed 01/01/25 01/01/25 10:07 Patient Tobacco Use Status Never used Tobacco 01/01/25 10:07 e-Cigarette/Vaping Use Never Used 01/01/25 10:07 PHQ-9: PHQ-9 Score PHQ-9: Total score 2 01/01/25 10:07 Depression Screening Interpretation: Negative Thrive Assessment: Date of Thrive Assessment Date Thrive assessed 01/01/25 01/01/25 10:07 Currently or been in a relationship where the following occur: No concerns reported Const General: no acute distress and alert HENMT Ears: TM's normal bilaterally and EAC's normal Throat: Yes posterior oropharynx normal and Yes tonsils normal (no TP congestion) Neck Neck: Yes supple and No lymphadenopathy Thyroid: Thyroid normal Resp Auscultation: clear to auscultation bilaterally, no rales and no wheezes Cardio Rate: regular rate Rhythm: regular rhythm Heart sounds: no murmurs GI Palpation (GI): Soft to palpation and nontender Auscultation: normal bowel sounds General: Yes no CVA tenderness Back/Spine/Pelvis Back: no CVA tenderness Thoracic/Lumbar Spine: No lumbar spinal tenderness Skin Rashes: no rashes Extrem General: Yes no clubbing, cyanosis or edema Right lower extremity: knee Details: tenderness (minimal) Location: of the pre-patellar area and normal ROM; no swelling Results Reviewed Results Reviewed: Laboratory Tests 12/31/24 12/31/24 08:26 08:30 WBC 6.6 Hgb 13.1 Hct 42.9 Plt Count 230 Sodium 140 Potassium 4.1 Creatinine 0.80 Estimated GFR > 60 Fasting Glucose 119 H Hemoglobin A1c % 6.4 H Calcium 9.0 AST 16 ALT 17 Triglycerides 116 Cholesterol 176 LDL Cholesterol, Calc 114 H HDL Cholesterol 39 L 25-OH Vitamin D Total 30.9 TSH 1.52 Ur Specific [place] >= 1.030 H Urine Protein Negative Urine Glucose (UA) >=1000 H Urine Blood Negative Urine Nitrite Negative Ur Leukocyte Esterase Negative Microalb/Creat Ratio 5.8 Coding Level of Care Code Est Pt Level 4 (24450) Complex EM visit Add On G2211 Diagnoses Type 2 diabetes mellitus without complication, with no history of insulin use E11.9 Benign essential hypertension I10 Dyslipidemia E78.5 Alpha thalassemia silent carrier D56.3 Migraine without status migrainosus, not intractable, unspecified migraine type G43.909 Migraine type: unspecified Status migrainosus presence: without status migrainosus Intractability: not intractable Acute gout of right ankle, unspecified cause M10.9 Gout site: ankle Gout etiology: unspecified cause Chronicity: acute Laterality: right Vitamin D deficiency E55.9 Right knee pain, unspecified chronicity M25.561 Chronicity: unspecified Obesity (BMI 30-39.9) E66.9 Additional Codes PHQ-9 - 51581 - PHQ-9 Billing: Yes ([id number]) Assessment & Plan Assessment & Plan (1) Type 2 diabetes mellitus without complication, with no history of insulin use: Code(s): E11.9 - Type 2 diabetes mellitus without complications Category: Medical Plan: Patient's HgbA1c went up to 6.4% on her labs done yesterday (was previously at 6.2% a few months ago) - goal is at least <7.0% but ideally <6.5% Patient is cautioned that her HgbA1c has been slowly inching up over the past several months Reinforced diabetic diet Continue Metformin ER 500 mg 2 tablets (1000 mg) BID and Januvia 100 mg QD for now Will recheck her FBS and HgbA1c in a few months for follow up (2) Benign essential hypertension: Code(s): I10 - Essential (primary) hypertension Category: Medical Plan: Reinforced low-sodium diet - goal is systolic BP of 120 mm or less Continue Lisinopril 10 mg QD (3) Dyslipidemia: Code(s): E78.5 - Hyperlipidemia, unspecified Category: Medical Plan: Results of her labs done yesterday reviewed and discussed with patient - she is also cautioned that her total and LDL cholesterol levels have both gone up slightly from previous on her most recent labs Reinforced low cholesterol diet - she is again reminded that her LDL cholesterol should ideally be at <100 mg/dl as she is a diabetic She declines offer again to start her on statins for her cholesterol and prefers not to take Rx if she can avoid them Patient has also been advised of current recommendations regarding statin Tx as standard in diabetics irregardless of cholesterol numbers Will recheck her fasting lipids and labs in 4 months for follow up (4) Alpha thalassemia silent carrier: Code(s): D56.3 - Thalassemia minor Category: Medical Plan: Patient's H/H have remained normal but her CBC continue to present with microcytosis and hypochromia (which have been present for a few years) and do not appear to be correcting with iron supplementation; RDW has also been normal on her labs Suspect that she may have alpha thalassemia (carrier or trait) - her recent Hgb electrophoresis suggested the same Her recent ferritin level was normal; her iron function tests have also all come back normal Patient has been advised that she is a carrier and as she does not have anemia or any acute symptoms, no treatments or further testings are needed or indicated She does need to consider (either herself or her children) genetic counseling, and that this is mostly for the sake of her future generations (5) Migraine: Code(s): G43.909 - Migraine, unspecified, not intractable, without status migrainosus Category: Medical Qualifiers: Migraine type: unspecified Status migrainosus presence: without status migrainosus Intractability: not intractable Qualified Code(s): G43.909 - Migraine, unspecified, not intractable, without status migrainosus Plan: She was diagnosed with migraine headaches by neurology a couple of years ago Continue Topiramate 25 mg BID for headache prophylaxis - her headaches have been well-controlled on prophylactic Rx Continue Sumatriptan 100 mg PRN and/or Fioricet PRN for symptomatic treatment/relief (6) Gout: Code(s): M10.9 - Gout, unspecified Category: Medical Qualifiers: Gout site: ankle Gout etiology: unspecified cause Chronicity: acute Laterality: right Qualified Code(s): M10.9 - Gout, unspecified Plan: She was diagnosed with gout in the right ankle at the walk-in clinic a couple of years ago; symptoms have since resolved with Tx with Indomethacin and she has had no recurrence of symptoms since Serum uric acid level was normal at 5.0 and 4.2 when previously checked a few months ago Reinforced low purine diet (7) Vitamin D deficiency: Code(s): E55.9 - Vitamin D deficiency, unspecified Category: Medical Plan: Continue Vitamin D3 2000 units QD (8) Right knee pain: Code(s): M25.561 - Pain in right knee Category: Medical Qualifiers: Chronicity: unspecified Qualified Code(s): M25.561 - Pain in right knee Plan: X-rays of her right knee done a few months ago revealed satisfactory appearance of right total knee prosthesis although there are multiple loose bodies within the posterior knee joint but without significant change from the prior study States that her knee is actually feeling much better lately She was seen by orthopedics in November 2023 and was advised that she had patellar tendinitis and the home exercise program that she was instructed on has helped her a lot Follow up with orthopedics as scheduled (9) Obesity (BMI 30-39.9): Code(s): E66.9 - Obesity, unspecified Category: Medical Plan: Reinforced diet/exercise as tolerated/lose weight Plan Follow up in 4 months Orders: Orders Comprehensive [place]. Panel Fast 4 Months E78.00 - Pure hypercholesterolemia, unspecified Microalbumin, Random (w Creat) 4 Months E11.9 - Type 2 diabetes mellitus without complications UA CC w/rflx Micro + Cult 4 Months R30.0 - Dysuria Complete Blood Count Auto Diff 4 Months D64.9 - Anemia, unspecified Lipid Panel 4 Months E78.00 - Pure hypercholesterolemia, unspecified Hemoglobin A1c 4 Months E11.9 - Type 2 diabetes mellitus without complications TSH reflex Free T4 4 Months E78.00 - Pure hypercholesterolemia, unspecified Vitamin D 25-OH Total 4 Months E55.9 - Vitamin D deficiency, unspecified Uric Acid 4 Months M10.9 - Gout, unspecified
--- OUTSIDE RECORDS SUMMARY | 2025-01-01 10:20 | XMS_ITS | Clinical Summary ---
Author Organization [facility] Address [address] [place] [address] Care Team Providers Care Docketing Specialist Name Role Phone Unavailable Primary Care Provider [...] Influencers of Health Screening 06/01/2022 COVID-19 Vaccine (1 - 2023-2 5 season) 2024 Influenza Vaccine [...]
== END 2025-01-01 10:33 | disposition home or self-care (01) ==
LOC: HO.HMCH 09:56
PROVIDERS: PCP Internal Medicine; Visit Provider Internal Medicine
DX: E11.9 Type 2 diabetes mellitus without complications (principal); I10 Essential (primary) hypertension; E66.9 Obesity, unspecified; Z68.37 Body mass index [BMI] 37.0-37.9, adult; E78.5 Hyperlipidemia, unspecified; D56.3 Thalassemia minor; G43.909 Migraine, unspecified, not intractable, without status migrainosus; M10.9 Gout, unspecified; E55.9 Vitamin D deficiency, unspecified; M25.561 Pain in right knee

== ENCOUNTER → 2025-01-01 09:55 | Outpatient (BNVA) | payer OTHER, SELFPAY | PROVIDERS: PCP Internal Medicine; Visit Provider Internal Medicine | DX: E11.9 Type 2 diabetes mellitus without complications (principal); I10 Essential (primary) hypertension; E78.5 Hyperlipidemia, unspecified; D56.3 Thalassemia minor; G43.909 Migraine, unspecified, not intractable, without status migrainosus; M10.9 Gout, unspecified; E55.9 Vitamin D deficiency, unspecified; M25.561 Pain in right knee; E66.9 Obesity, unspecified; Z68.37 Body mass index [BMI] 37.0-37.9, adult | CPT/HCPCS: 96127; 99212 ==

== ENCOUNTER 2025-02-26 13:34 | Outpatient (AMB) | payer OTHER, SELFPAY ==
--- OUTSIDE RECORDS SUMMARY | 2025-02-25 14:30 | XMS_ITS | Encounter Summary ---
Author Organization [facility] Address [address] [place] [address] Care Team Providers Care Executive Staff Assistant Name Role Phone Physician, Pcp Unknown Primary Care Provider Jackie vailable Reason for Visit * Reason Comments Post-op Gallbladder Encounter Details Date Type Department Care Team (Latest Contact Info) Description 02/25/2025 2:30 PM EDT Office Visit General Surgery [address] [id number] Kanu Gonzalez MD [address] [place] [phone] Acute calculous cholecystitis (Primary Dx) Social History Tobacco Use Types Packs/Day Years Used Date Smoking Tobacco: Never Smokeless Tobacco: Never Interpersonal Safety Answer Date Record ed Physical Abuse 02/05/2025 Verbal Abuse 02/05/2025 Comments Unknown Sex and Gender Information Value Date Recorded Sex Assigned at Not on file Legal Sex Female 3:04 PM EST Gender Identity Not on file Sexual Orientation Not on file documented as of this encounter Last Filed Vital Signs Vital Sign Reading Time Taken Comments Blood Pressure 112/75 02/25/2025 2:29 PM EDT Pulse 83 02/25/2025 2:29 PM EDT Temperature 36.4 C (97.5 F) 02/25/2025 2:29 PM EDT Respiratory Rate - - Oxygen Saturation - - Inhaled Oxygen Concentration - - Weight 101 kg (223 lb) 02/25/2025 2:29 PM EDT Height 165.1 cm (5' 5 ) 02/25/2025 2:29 PM EDT Body Mass Index 37.11 02/25/2025 2:29 PM EDT documented in this encounter Progress Notes * Kanu Gonzalez MD - 02/25/2025 2:30 PM EDT Adonay underwent urgent cholecystectomy with Dr. Crain 3 weeks ago and is feeling markedly better. She still having a bit of postprandial diarrhea although the trend is towards improvement. No fevers, night sweats, residual discomfort. On exam her supraumbilical camera port site is slow to heal, the skin edges are a bit heaped up and it unfortunately is hidden by a fold of her pannus, but there is no infection. 5 mm port sites look fine. We talked about activity and dietary limitations. Follow-up as needed. documented in this encounter Plan of Treatment Not on file documented as of this encounter Visit Diagnoses Diagnosis Acute calculous cholecystitis- Primary documented in this encounter Care Teams Executive Staff Assistant Relationship Specialty Start Date End Date Physician, Pcp Unknown PCP - General 02/05/25 documented as of this encounter
[2025-02-26 13:47] VITALS: BP 126/90; PULSE 107; TEMP 36.2; O2SAT 97; BMI 37.0
--- NOTE | 2025-02-26 13:47 | A.OFFPC_ITS ---
Vital Signs 02/26/25 13:47 Height 5 ft 5 in Weight 222 lb 8 oz BMI 37.0 BP 126/90 H Blood Pressure Location Lt brachial Position Sitting Pulse 107 H Pulse Source Pulse Oximeter Temp 97.1 F Temp Source Temporal Artery Scan Pulse Oximetry (%) 97 Oxygen Delivery Method Room Air Intake Visit Reasons: [facility] 02/05 Allergies No Known Allergies Allergy (Verified 02/26/25 14:17) Medication List - Last Reconciled 02/26/25 by Hilario Keen MD [id number] 50-300-40 mg (Fioricet) 1 cap PO Q8H PRN 30 days cholecalciferol (vitamin D3) 50 mcg PO DAILY 90 days empagliflozin (Jardiance) 10 mg PO QAM 30 days fluticasone propionate 50 mcg/actuation 1 spray intranasal BID hydrocortisone 1% 1 appl topical TID PRN ibuprofen 400 mg PO Q6H PRN indomethacin 50 mg PO TID PRN lisinopril 10 mg PO DAILY 90 days loratadine (Claritin) 10 mg PO DAILY PRN metformin ER 1,000 mg (2 x 500 mg) PO BID sitagliptin phosphate (Januvia) 100 mg PO DAILY 90 days sumatriptan succinate take 1 tab at onset of headache; if no relief, may repeat 1 tab after at least 2 hrs; max = 2 tabs/24 hrs PO 90 days tizanidine 4 mg PO Q8H PRN 10 days topiramate 25 mg PO BID triamcinolone acetonide 0.5% 1 appl topical TID PRN Tobacco use date assessed: 02/26/25 Dental Screening Dental Screen Date: 02/26/25 Did you have a dental visit in the last 12 months?: Yes Did you have a dental problem in the last 6 months where you did not have access to dental care?: No Was dental information given to patient?: Patient has dentist HPI Lucia 02/05 HPI Details Patient comes in today for her [facility] follow up visit She reportedly had emergency gallbladder surgery earlier this month ~ 02/05/2025 at [facility] due to acute cholecystitis States that she currently feels fatigued but is otherwise doing okay She has noticed some loose stools since her surgery and had diarrhea at one point after she ate some fried foods She denies any headaches or dizziness Denies any chest pains, no increased SOB No nausea/vomiting, no abdominal pains lately States that she saw her surgeon for follow up last week and was advised that she did well post-op [facility] Medical History (Updated 02/26/25 @ 14:38 by Hilario Keen MD) Acute cholecystitis due to biliary calculus Alpha thalassemia silent carrier Obesity (BMI 30-39.9) Left hip pain Migraine Costochondritis Osteoarthritis of right hand Morbid obesity with BMI of 40.0-44.9, adult Vitamin D deficiency Complex endometrial hyperplasia with atypia Iron deficiency anemia Nonintractable headache Dyslipidemia Benign essential hypertension Type 2 diabetes mellitus without complication, with no history of insulin use Surgical History (Updated 02/26/25 @ 14:32 by Hilario Keen MD) History of laparoscopic cholecystectomy History of knee surgery History of total abdominal hysterectomy and bilateral salpingo-oophorectomy (~01/20/20) History of section History of tubal ligation Family History Father Hypertension Diabetes Mother Lupus Maternal Grandmother Uterine cancer Maternal Aunt Breast cancer Paternal Grandmother Uterine cancer Social History Housing: Apartment Alcohol intake: never Patient Tobacco Use Status: Never used Tobacco e-Cigarette/Vaping Use: Never Used Second Hand Smoke Exposure: Yes service: No Current occupational status: employed 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 1. Little interest or pleasure in doing things: not at all 2. Feeling down, depressed, or hopeless: several days 3. Trouble falling or staying asleep, or sleeping too much: not at all 4. Feeling tired or having little energy: several days 5. Poor appetite or overeating: not at all 6. Feeling bad about yourself - or that you are a failure or have let yourself or your family down: not at all 7. Trouble concentrating on things, such as reading the newspaper or watching television: not at all 8. Moving or speaking so slowly that other people could have noticed. Or the opposite - being so fidgety or restless that you have been moving around a lot more than usual: not at all 9. Thoughts that you would be better off or of hurting yourself in some way: not at all Total score: 2 Depression Screening Interpretation: Negative Depression Screening Done: Yes 56487 - PHQ-9 Billing: Yes Source: Developed by Drs. David Harris, Katelynn Mueller, Anthony Downing and colleagues, with an educational mitra from [employer]. Thrive Questionnaire Date Thrive assessed: 12/26/24 I am a: Patient What is your living situation today?: I have a steady place to live Within the past 12 months, did the food you bought not last and you didn't have the money to get more?: Never true Within the past 12 months, did you worry whether your food would run out before you got money to buy more?: Never true Do you have trouble paying for medicines?: I choose not to answer this question Do you have trouble getting transportation to medical appointments?: No Do you have trouble paying your heating and electricity bill?: I choose not to answer this question Do you have trouble taking care of your child, family member or friend?: No Do you have trouble with day-to-day activities such as bathing, preparing meals, shopping, managing finances, etc.?: No Are you currently unemployed and looking for a job?: No Are you interested in more education?: No Please select the resources that you would like help with: None Currently or been in a relationship where the following occur: No concerns reported THRIVE Score: 0 AUDIT C Alcohol Use Questionnaire (AUDIT-C) 1. How often do you have a drink containing alcohol?: Never 3. How often do you have six or more drinks on one occasion?: Never Total Score: 0 Score Reviewed/Action Taken: Yes SANA-7 AMB Questionnaire SANA-7 Date SANA - 7 assessed: 01/01/25 Feeling nervous, anxious, or on edge: 0 = Not at all Not being able to stop or control worryin = Not at all Worrying too much about different things: 1 = Several days Trouble relaxin = Several days Being so restless that it is hard to sit still: 0 = Not at all Becoming easily annoyed or irritable: 1 = Several days Feeling afraid as if something awful might happen: 0 = Not at all Total SANA-7 score (0-4 normal; 5-9 mild; 10-14 moderate; 15-21 severe): 3 Source: Developed by Drs. David Harris, Katelynn Mueller, Anthony Downing and colleagues, with an educational mitra from [employer]. Review of Systems Const Denies chills, Reports fatigue, Denies fever(s) and Denies headache(s) ENT Denies dysphagia, Denies dizziness, Denies otalgia, Denies headache(s), Denies neck pain, Denies odynophagia and Denies sore throat Card Denies chest pain, Denies rapid heart rate, Denies irregular heart rhythm, Denies palpitations and Denies dyspnea Resp Denies chest congestion, Denies cough and Denies dyspnea GI Denies abdominal pain, Denies constipation, Denies dysphagia, Denies heartburn, Reports diarrhea, Reports loose stools (since her GB surgery), Denies nausea, Denies odynophagia and Denies vomiting Denies difficulty voiding, Denies dysuria, Denies urinary incontinence and Denies urinary urgency Musc Denies back pain, Reports arthralgias (right knee, on and off - mostly mild ) and Denies neck pain Skin/Breast Denies rash Neuro Denies dizziness, Denies headache(s) and Denies paresthesias Psych Denies anxiety and Denies depression Endo Reports fatigue and Denies palpitations Rojelio/Lymph Denies easy bruising Physical exam (Primary Care) Vital Signs: Last Vital Signs Temp 97.1 F 02/26/25 13:47 Pulse 107 H 02/26/25 13:47 BP 126/90 H 02/26/25 13:47 Pulse Ox 97 02/26/25 13:47 Oxygen Delivery Method Room Air 02/26/25 13:47 BMI result Body Mass Index 37.0 Tobacco/Smoking Status: Tobacco use Status Tobacco use date assessed 02/26/25 02/26/25 13:52 Patient Tobacco Use Status Never used Tobacco 02/26/25 13:47 e-Cigarette/Vaping Use Never Used 02/26/25 13:47 PHQ-9: PHQ-9 Score PHQ-9: Total score 2 02/26/25 13:52 Depression Screening Interpretation: Negative Thrive Assessment: Date of Thrive Assessment Date Thrive assessed 12/26/24 02/26/25 13:47 Currently or been in a relationship where the following occur: No concerns reported Const General: no acute distress and alert HENMT Ears: TM's normal bilaterally and EAC's normal Throat: Yes posterior oropharynx normal and Yes tonsils normal (no TP congestion) Neck Neck: Yes supple and No lymphadenopathy Thyroid: Thyroid normal Resp Auscultation: clear to auscultation bilaterally, no rales and no wheezes Cardio Rate: regular rate Rhythm: regular rhythm Heart sounds: no murmurs GI Palpation (GI): Soft to palpation and nontender Auscultation: normal bowel sounds General: Yes no CVA tenderness Back/Spine/Pelvis Back: no CVA tenderness Thoracic/Lumbar Spine: No lumbar spinal tenderness Skin Rashes: no rashes Extrem General: Yes no clubbing, cyanosis or edema Right lower extremity: knee Details: tenderness (minimal) Location: of the pre- patellar area and normal ROM; no swelling Coding Level of Care Code Est Pt Level 3 (68155) Diagnoses Acute cholecystitis due to biliary calculus K80.00 Type 2 diabetes mellitus without complication, with no history of insulin use E11.9 Benign essential hypertension I10 Alpha thalassemia silent carrier D56.3 Additional Codes PHQ-9 - 77057 - PHQ-9 Billing: Yes ([id number]) Assessment & Plan Assessment & Plan (1) Acute cholecystitis due to biliary calculus: Code(s): K80.00 - Calculus of gallbladder with acute cholecystitis without obstruction Category: Medical Plan: S/P laparoscopic cholecystectomy at [place] on 02/05/2025 Patient states that aside from some loose stools and a bout of watery diarrhea after eating some fried foods, she did well overall post-op Follow up with surgery as scheduled (2) Type 2 diabetes mellitus without complication, with no history of insulin use: Code(s): E11.9 - Type 2 diabetes mellitus without complications Category: Medical Plan: Patient's HgbA1c went up to 6.4% on her labs done last month (was previously at 6.2% a few months ago) - goal is at least <7.0% but ideally <6.5% Patient is cautioned that her HgbA1c has been slowly inching up over the past several months Reinforced diabetic diet Continue Metformin ER 500 mg 2 tablets (1000 mg) BID and Januvia 100 mg QD for now Will recheck her FBS and HgbA1c in a few months for follow up (3) Benign essential hypertension: Code(s): I10 - Essential (primary) hypertension Category: Medical Plan: Reinforced low-sodium diet - goal is systolic BP of 120 mm or less Continue Lisinopril 10 mg QD (4) Alpha thalassemia silent carrier: Code(s): D56.3 - Thalassemia minor Category: Medical Plan: Patient's H/H have remained normal but her CBC continue to present with microcytosis and hypochromia (which have been present for a few years) and do not appear to be correcting with iron supplementation; RDW has also been normal on her labs Suspect that she may have alpha thalassemia (carrier or trait) - her recent Hgb electrophoresis suggested the same Her recent ferritin level was normal; her iron function tests have also all come back normal Patient has been advised that she is a carrier and as she does not have anemia or any acute symptoms, no treatments or further testings are needed or indicated She does need to consider (either herself or her children) genetic counseling, and that this is mostly for the sake of her future generations Plan Follow up as scheduled in May 2025
--- OUTSIDE RECORDS SUMMARY | 2025-02-26 14:22 | XMS_ITS | Clinical Summary ---
Author Organization [facility] Address [address] [place] [address] Phone Care Team Providers Care Inside Sales Lead Name Role Phone Physician, Pcp Unknown Primary Care Provider Jackie vailable Allergies No known active allergies Medications lisinopriL (PRINIVIL,ZEST RIL) 10 mg tablet Take 1 tablet (10 mg total) by mouth 1 (one) time each day. Active SUMAtriptan (IMITREX) 100 mg tablet Take 1 tablet (100 mg total) by mouth 1 (one) time if needed for migraine. May repeat dose once in 2 hours if no relief. Do not exceed 2 doses in 24 hours. Active metFORMIN (GLUCOPHAGE) 1,000 mg tablet Take 1 tablet (1,000 mg total) by mouth 2 (two) times a day with meals. Active SITagliptin phosphate (JANUVIA) 100 mg tablet Take 1 tablet (100 mg total) by mouth 1 (one) time each day. Active loratadine (CLARITIN REDITABS) 10 mg dispersible tablet Dissolve 1 tablet (10 mg total) on top of the tongue 1 (one) time each day. Active topiramate (TOPAMAX) 25 mg tablet Take 1 tablet (25 mg total) by mouth 2 (two) times a day. Active oxyCODONE (ROXICODONE) 5 mg immediate release tablet Take 1 tablet (5 mg total) by mouth every 6 (six) hours if needed for severe pain. Max Daily Amount: 20 mg 10 tablet 02/07/20 25 Active Additional Information Patient not taking.Reported on 02/25/2025 docusate sodium (COLACE) 100 mg capsule Take 1 capsule (100 mg total) by mouth 2 (two) times a day. 14 each 02/07/20 Active Additional Information Patient not taking.Reported on 02/25/2025 acetaminophen (TYLENOL) 500 mg tablet Take 2 tablets (1,000 mg total) by mouth every 8 (eight) hours. 24 tablet 02/07/20 25 Active acetaminophen (TYLENOL) 500 mg tablet Take 2 tablets (1,000 mg total) by mouth every 8 (eight) hours. 24 tablet 02/06/20 25 025 Discontinued oxyCODONE (ROXICODONE) 5 mg immediate release tablet Take 1 tablet (5 mg total) by mouth every 6 (six) hours if needed for severe pain. Max Daily Amount: 20 mg 10 tablet 02/06/20 25 025 Discontinued docusate sodium (COLACE) 100 mg capsule Take 1 capsule (100 mg total) by mouth 2 (two) times a day. 14 each 02/06/20 25 025 Discontinued topiramate (TOPAMAX SPRINKLE) 25 mg capsule Take 1 capsule (25 mg total) by mouth at bedtime. Do not crush or chew. 025 Discontinued(E ntered in Error) cephalexin (KEFLEX) 500 mg capsule Take 1 capsule (500 mg total) by mouth 2 (two) times a day for 5 days. 10 each 02/19/20 25 025 Lactobacillus acidophilus (Probiotic Acidophilus) 250 million cell capsule Take 1 capsule by mouth 1 (one) time each day for 5 days. 5 capsule 02/19/20 25 025 Active Problems Problem Noted Date Diagnosed Date Acute cholecystitis 02/05/2025 Encounters Date Type Department Care Team Description 02/25/2025 2:30 PM EDT Office Visit General Surgery [address] [phone] Kanu Gonzalez MD Acute calculous cholecystitis (Primary Dx) 02/17/2025 1:00 PM EDT Office Visit General Surgery [address] [phone] Darren Crain MD Acute calculous cholecystitis (Primary Dx) 02/05/2025 3:18 PM EDT Anesthesia Event [facility] Main OR [address] [place] [phone] Jessy Brown MD Pierce, Trudy A, CRNA 02/05/2025 3:03 PM EDT - 02/05/2025 4:33 PM EDT Surgery [facility] Main OR [address] [place] [phone] Darren Crain MD CHOLECYSTECTOMY LAPAROSCOPIC 02/05/2025 6:45 AM EDT - 02/06/2025 2:30 PM EDT Emergency [facility] Medical Surgical Unit [address] [place] [phone] Nelson Rhoades MD Sobral, Filipe, MD Acute cholecystitis (Primary Dx); Calculus of gallbladder with acute cholecystitis without obstruction Discharge Disposition: Home or Self Care from Last 3 Months Social History Tobacco Use Types Packs/Day Years Used Date Smoking Tobacco: Never Smokeless Tobacco: Never Tobacco Cessation:Counseling Given: Not Answered Interpersonal Safety Answer Date Record ed Physical Abuse 02/05/2025 Verbal Abuse 02/05/2025 Comments Unknown Sex and Gender Information Value Date Recorded Sex Assigned at Not on file Legal Sex Female 3:04 PM EST Gender Identity Not on file Sexual Orientation Not on file Obstetrics History Last Filed Vital Signs Vital Sign Reading Time Taken Comments Blood Pressure 112/75 02/25/2025 2:29 PM EDT Pulse 83 02/25/2025 2:29 PM EDT Temperature 36.4 C (97.5 F) 02/25/2025 2:29 PM EDT Respiratory Rate 20 02/06/2025 8:53 AM EDT Oxygen Saturation 98% 02/06/2025 8:53 AM EDT Inhaled Oxygen Concentration - - Weight 101 kg (223 lb) 02/25/2025 2:29 PM EDT Height 165.1 cm (5' 5 ) 02/25/2025 2:29 PM EDT Body Mass Index 37.11 02/25/2025 2:29 PM EDT Plan of Treatment Health Maintenance Due Date Last Done Comments Breast Cancer Screening 1970 Hepatitis B Vaccines (1 of 3 - 19+ 3-dose series) 1989 04/21/2016 Cervical Cancer Screening: P ap Smear 1991 Pneumococcal Vaccine: 50+ Years (1 of 1 - PCV) 01/27/2020 Zoster Vaccines (1 of 2) 01/27/2020 Colorectal Cancer Screening: Colonoscopy 06/01/2022 HIV Screening 06/01/2022 Hepatitis C Screening 06/01/2022 Social Influencers of Health Screening 06/01/2022 COVID-19 Vaccine (4 - 2023-2 5 season) 2024 09/03/2021, 09/03/2020, 08/14/2020 Depression Screening 07/03/2024 Influenza Vaccine (#1) 2025 DTaP,Tdap,and Td Vaccines (3 - Td or Tdap) 11/14/2032 11/14/2022, 05/04/2016 HIB Vaccines Aged Out No longer eligi [...] to complete this topic RSV Immunization Patients Under 20 months Aged Out No longer eligible b ased on patient's age to complete this topic Varicella Vaccines Aged Out No longer eligible based on patient's age to complete this topic Procedures Procedure Name Priority Date/Time Associated Diagnosis Comments ECG ANNOTATED 02/07/2025 POCT GLUCOSE BLOOD Routine 02/06/2025 11 :43 AM EDT POCT GLUCOSE BLOOD Routine 02/06/2025 7: 31 AM EDT CBC WITH AUTO DIFFERENTIAL Routine 02/06/2025 5:54 AM EDT CBC AND DIFFERENTIAL Routine 02/06/2025 5:54 AM EDT SST - GOLD Routine 02/06/2025 5:51 AM EDT EXTRA TUBES Routine 02/06/2025 5:51 AM EDT POCT GLUCOSE BLOOD Routine 02/05/2025 6: 56 PM EDT POCT GLUCOSE BLOOD Routine 02/05/2025 4: 46 PM EDT OXYGEN THERAPY, ADULT Routine 02/05/2025 4:37 PM EDT TISSUE EXAM Routine 02/05/2025 4:25 PM EDT Acute cholecystitis TH AN ENDOTRACHEAL(NO CHARGE) Routine 02/05/2025 3:35 PM EDT CHOLECYSTECTOMY LAPAROSCOPIC 02/05/2025 3:14 PM EDT Acute cholecystitis LACTATE STAT 02/05/2025 11:13 AM EDT CULTURE BLOOD STAT 02/05/2025 11:13 AM EDT CULTURE BLOOD STAT 02/05/2025 11:13 AM EDT TROPONIN I HIGH SENSITIVITY Timed 02/05/2025 9:31 AM EDT ECG 12-LEAD STAT 02/05/2025 8:17 AM EDT US ABDOMEN LIMITED STAT 02/05/2025 8: 04 AM EDT CBC WITH AUTO DIFFERENTIAL STAT 02/05/2025 7:31 AM EDT B-TYPE NATRIURETIC PEPTIDE STAT 02/05/2025 7:31 AM EDT MAGNESIUM STAT 02/05/2025 7:31 AM EDT LIPASE STAT 02/05/2025 7:31 AM EDT COMPREHENSIVE METABOLIC PANEL STAT 02/05/2025 7:31 AM EDT CBC AND DIFFERENTIAL STAT 02/05/2025 7:31 AM EDT TROPONIN I HIGH SENSITIVITY Timed 02/05/2025 7:31 AM EDT ECG 12-LEAD STAT 02/05/2025 7:22 AM EDT from Last 3 Months Results * ECG-Annotated (02/07/2025) us Provider Onbase MD ECG ORDERABLES Final Result * (ABNORMAL) POCT Glucose, blood (02/06/2025 11:43 AM EDT) Only the most recent of4 resultswithin the time period is included. [facility] Glucose POCT 125(H) 70 - 100 mg/dL 02/06/2025 11:44 AM EDT [facility] Blood Capillary blood specimen / Unknown 02/06/2025 11:43 AM EDT 02/06/2025 11:46 AM EDT Darren Crain MD LAB POINT OF CARE TE ST DOCKED DEVICE UNSOLICITED RESULTS Final Result [facility] [address] [place] [address], [place] [phone] * (ABNORMAL) CBC auto differential (02/06/2025 5:54 AM EDT) Only the most recent of2 resultswithin the time period is included. [facility] WBC 15.6(H) 4.8 - 10.8 K/mcL LAB HEMETOLOGY METHOD 02/06/2025 7:13 AM EDT [facility] RBC 5.30(H) 3.80 - 4.80 M/mcL LAB HEMETOLOGY METHOD 02/06/2025 7:13 AM EDT [facility] Hemoglobin 11.8 11.5 - 16.0 g/dL LAB HEMETOLOGY METHOD 02/06/2025 7:13 AM [facility] Hematocrit 38.9 35.0 - 47.0 % LAB HEMETOLOGY METHOD 02/06/2025 7:13 AM [facility] MCV 73.3(L) 79.0 - 98.0 FL LAB HEMETOLOGY METHOD 02/06/2025 7:13 AM [facility] MCH 22.2(L) 27.0 - 32.0 pcg LAB HEMETOLOGY METHOD 02/06/2025 7:13 AM [facility] MCHC 30.3(L) 32.0 - 37.0 g/dL LAB HEMETOLOGY METHOD 02/06/2025 7:13 AM [facility] RDW 15.3(H) 11.0 - 15.0 % LAB HEMETOLOGY METHOD 02/06/2025 7:13 AM [facility] Platelets 209 130 - 400 K/mcL LAB HEMETOLOGY METHOD 02/06/2025 7:13 AM [facility] MPV 10.2 7.0 - 11.0 FL LAB HEMETOLOGY METHOD 02/06/2025 7:13 AM [facility] NRBC 0.0 <1.0 % LAB HEMETOLOGY METHOD 02/06/2025 7:13 AM [facility] NRBC Absolute 0.00 <0.10 K/mcL LAB HEMETOLOGY METHOD 02/06/2025 7:13 AM [facility] Neutrophils Relative 84.0 % LAB HEMETOLOGY METHOD 02/06/2025 7:13 AM [facility] Lymphocytes Relative 7.6 % LAB HEMETOLOGY METHOD 02/06/2025 7:13 AM [facility] Monocytes Relative 7.7 % LAB HEMETOLOGY METHOD 02/06/2025 7:13 AM EDT [facility] Eosinophils Relative 0.0 % LAB HEMETOLOGY METHOD 02/06/2025 7:13 AM EDT [facility] Basophils Relative 0.1 % LAB HEMETOLOGY METHOD 02/06/2025 7:13 AM [facility] Immature Granulocytes Relative 0.6 % LAB HEMETOLOGY METHOD 02/06/2025 7:13 AM EDT [facility] Neutrophils Absolute 13.12(H) 1.50 - 7.00 K/mcL LAB HEMETOLOGY METHOD 02/06/2025 7:13 AM EDT [facility] Lymphocytes Absolute 1.18 1.00 - 5.00 K/mcL LAB HEMETOLOGY METHOD 02/06/2025 7:13 AM [facility] Monocytes Absolute 1.20(H) 0.20 - 1.00 K/mcL LAB HEMETOLOGY METHOD 02/06/2025 7:13 AM [facility] Eosinophils Absolute 0.00 0.00 - 0.50 K/mcL LAB HEMETOLOGY METHOD 02/06/2025 7:13 AM [facility] Basophils Absolute 0.01 0.00 - 0.20 K/mcL LAB HEMETOLOGY METHOD 02/06/2025 7:13 AM [facility] Immature Granulocytes Absolute 0.09(H) 0.00 - 0.03 K/mcL LAB HEMETOLOGY METHOD 02/06/2025 7:13 AM [facility] Blood Venous blood specimen / Unknown Venipuncture / Unknown 02/06/2025 5:54 AM EDT 02/06/2025 6:46 AM EDT Steven LINARES LAB BLOOD ORDERABLES Final Res ult [facility] [address] [place] [address], [place] [phone] * SST tube (02/06/2025 5:51 AM EDT) Extra Tube Hold for add-ons. 02/06/2025 8:01 AM EDT [facility] Comment:Auto resulted. Blood Venous blood specimen / Unknown 02/06/2025 5:51 AM EDT 02/06/2025 6:46 AM EDT us Darren Crain MD LAB BLOOD ORDERABLES Final Resu lt [facility] [address] [place] [address], * Tissue exam (02/05/2025 4:25 PM EDT) Final Diagnosis A. Gallbladder, cholecystectomy: - Acute cholecystitis and cholelithiasis. 02/07/2025 1:11 PM EDT [facility] Gross Description A. Gallbladder, : Labeled gallbladder . Received in formalin is an intact, 11.5 cm in length monroy-red to purple gallbladder, including a segment of clipped clipped cystic duct. The duct has a diameter of 0.4 cm at the margin. A periductal lymph node is absent. The maximal gallbladder circumference is 7.0 cm. The serosa is smooth and the adventitia is cauterized. The lumen contains red viscid bile/blood and blood clot admixed with friable material and a solitary, ovoid in shape, 5.9 cm in greatest diameter monroy-brown to yellow calculus. The mucosa is monroy-red, hemorrhagic and denuded. The wall thickness averages less than 0.1 cm. The serosa is inked green and the adventitia is inked black. Fiscal Services Director sections are submitted in one cassette including gallbladder (fundus, body and neck), duct margin (inked red), and cross-section adjacent to duct margin (inked black), five pieces. TS 02/07/2025 1:11 PM EDT [facility] Disclaimer Unless otherwise specified, all tissue is 10% NB formalin fixed and paraffin embedded. 02/07/2025 1:11 PM EDT [facility] Tissue Gallbladder structure / Unknown 02/05/2025 4:25 PM EDT 02/06/2025 5:15 AM EDT Darren Crain MD LAB PATHOLOGY ORDERABLES Final Result [facility] [address] [place] [address], [place] [phone] * TH AN ENDOTRACHEAL(NO CHARGE) (02/05/2025 3:35 PM EDT) Federico Messina CRNA - 02/05/2025 3:35 PM EDT Federico Martini CRNA 02/05/2025 3:36 PM General Information and Staff Patient location during procedure: OR Performed by: Federico Martini CRNA Authorized by: Rich Lewis MD Intubation Airway not difficult Urgency: elective Final Airway Details Successful airway: ETT Cuffed: yes Successful intubation technique: direct laryngoscopy Facilitating devices/methods: intubating stylet and cricoid pressure Endotracheal tube insertion site: oral Blade: Kimmy Blade size: #3 ETT size (mm): 7.0 Cormack-Lehane Classification: grade IIa - partial view of glottis Placement verified by: chest auscultation, capnometry and palpation of cuff Measured from: lips Number of attempts at approach: 1 Ventilation between attempts: none Number of other approaches attempted: 0Final airway type: endotracheal airway Indications and Patient Condition Indications for airway management: anesthesia Spontaneous ventilation: present Sedation level: Yes Preoxygenated: yes Soft Tissue Damage: No Dentition Unchanged: Yes Patient position: neutral MILS maintained throughout Mask difficulty assessment: 0 - not attempted Start Time: 02/05/2025 3:21 PMStop Time: 02/05/2025 3:21 PM Rich Lewis MD ANESTHESIA ORDERABLES Final R esult * Blood Culture, Peripheral #2 (02/05/2025 11:13 AM EDT) Only the most recent of2 resultswithin the time period is included. [facility] Culture, Blood No growth at 5 days 02/10/2025 12:01 PM EDT [facility] Blood Venous blood specimen / Unknown Venipuncture / Unknown 02/05/2025 11:13 AM EDT 02/05/2025 11:19 AM EDT Nelson Rhoades MD LAB MICROBIOLOGY - GENERA L ORDERABLES Final Result Performing Organization Address [facility]/ZIP Co de Phone Number [facility] [address] [place] [address], [place] [phone] * Lactate (02/05/2025 11:13 AM EDT) [facility] Lactate 1.5 0.4 - 2.0 mmol/L LAB CHEMISTRY METHOD 02/05/2025 12:08 PM EDT [facility] Blood Venous blood specimen / Unknown Venipuncture / Unknown 02/05/2025 11:13 AM EDT 02/05/2025 11:19 AM EDT Nelson Rhoades MD LAB BLOOD ORDERABLES Devorah l Result Performing Organization Address [facility] Co de Phone Number [facility] [address] [place] [address], [place] [phone] * Troponin I high sensitivity (02/05/2025 9:31 AM EDT) Only the most recent of2 resultswithin the time period is included. [facility] High Sensitivity Troponin I 8 <=54 ng/L LAB CHEMISTRY METHOD 02/05/2025 10:14 AM EDT [facility] Blood Venous blood specimen / Unknown Venipuncture / Unknown 02/05/2025 9:31 AM EDT 02/05/2025 9:42 AM EDT Narrative [facility] - 02/05/2025 10:14 AM EDT High levels of biotin in samples may falsely decrease hsTroponin values. Use caution when interpreting hsTroponin results in patients taking biotin who exhibit renal impairment (eGFR <60) or in patients taking more than 20 mg/day of biotin. Yessi Larkin MD LAB BLOOD ORDERABLES Final Res ult Performing Organization Address City/[facility]/ZIP Co de Phone Number [facility] [address] [place] [address], [place] [phone] * ECG 12 lead (02/05/2025 8:17 AM EDT) Only the most recent of2 resultswithin the time period is included. Ventricular Rate ECG 66 BPM GEMUSE Atrial Rate 66 BPM GEMUSE P-R Interval 182 ms GEMUSE QRS Duration 76 ms GEMUSE Q-T Interval 398 ms GEMUSE QTc 417 ms GEMUSE R Eolia -23 degrees GEMUSE T Eolia 155 degrees GEMUSE ECG Interpretation Normal sinus rhythm with sinus arrhythmia Low voltage QRS Nonspecific T wave abnormality Abnormal ECG When compared with ECG of 05-FEB-2025 07:22, (unconfirmed) Nonspecific T wave abnormality, worse in Inferior leads Nonspecific T wave abnormality now evident in Lateral leads Confirmed by Amadeo CHOU JAMES ([id number]) on 02/05/2025 6:39:14 PM GEMUSE 02/05/2025 8:17 AM EDT 02/05/2025 6:39 PM EDT Yessi Larkin MD ECG ORDERABLES Final Result Performing Organization Address City/[facility]/ZIP Co de Phone Number GEMUSE * US Abdomen Limited (02/05/2025 8:04 AM EDT) Anatomical Region Laterality Modality Body Ultrasound 02/05/2025 9:44 AM EDT Impressions 02/05/2025 9:50 AM EDT Impression: 1. Very limited study due to patient body habitus. 2. Distended gallbladder with calculi lodged within the gallbladder neck and top normal gallbladder wall thickness. Acute cholecystitis is not excluded. 3. Normal caliber common duct. 4. Chronic hepatocellular disease/fatty infiltration. Telerad MILAGROS ([id number]) -------- FINAL REPORT -------- Dictated By: Isabela Perales Dictated Date: 02/05/2025 09:44 ET Assigned Physician: Isabela Perales Reviewed and Electronically Signed By: Isabela Perales Signed Date: 02/05/2025 09:50 ET Workstation ID: [id number] Transcribed By: Self Edit Transcribed Date: 02/05/2025 09:44 ET Narrative 02/05/2025 9:50 AM EDT History: Right upper quadrant abdominal pain. Comparison: No comparison imaging at this institution. Findings: Real-time imaging of the abdomen, limited to the right upper quadrant, was performed. Image detail is limited due to patient body habitus. The hepatic echotexture is coarse and the echogenicity is diffusely increased, with poor visualization of the osborne of the peripheral portal venous vasculature and limited penetration of the liver. This is consistent with fatty infiltration and/or fibrosis. No gross evidence of a hepatic mass is seen but evaluation is limited. The portal vein is patent and exhibits normal, hepatopedal flow. The gallbladder is distended to at least 14 cm in length. There are nonmobile calculi within the gallbladder neck, partially imaged. The gallbladder wall is top normal in thickness, measuring 3 mm. No pericholecystic fluid is identified. No sonographic Hawley's sign was found, per technologist notes. The common duct is normal in caliber, measuring 4.7 mm at the level of the hepatic artery and portal vein. The distal duct is completely obscured by bowel gas shadowing. No ascites is seen in the right upper quadrant. A survey view of the right kidney is unremarkable. The pancreas is largely obscured by bowel gas shadowing; a small portion of the neck that is visible appears unremarkable. Procedure Note Isabela Perales MD - 02/05/2025 History: Right upper quadrant abdominal pain. Comparison: No comparison imaging at this institution. Findings: Real-time imaging of the abdomen, limited to the right upper quadrant, wasperformed. Image detail is limited due to patient body habitus. The hepatic echotexture is coarse and the echogenicity is diffuselyincreased, with poor visualization of the osborne of the peripheral portalvenous vasculature and limited penetration of the liver. This isconsistent with fatty infiltration and/or fibrosis. No gross evidence of ahepatic mass is seen but evaluation is limited. The portal vein is patentand exhibits normal, hepatopedal flow. The gallbladder is distended to at least 14 cm in length. There arenonmobile calculi within the gallbladder neck, partially imaged. Thegallbladder wall is top normal in thickness, measuring 3 mm. Nopericholecystic fluid is identified. No sonographic Hawley's sign wasfound, per technologist notes. The common duct is normal in caliber, measuring 4.7 mm at the level of thehepatic artery and portal vein. The distal duct is completely obscured bybowel gas shadowing. No ascites is seen in the right upper quadrant. A survey view of the rightkidney is unremarkable. The pancreas is largely obscured by bowel gasshadowing; a small portion of the neck that is visible appearsunremarkable. IMPRESSION: Impression: 1. Very limited study due to patient body habitus. 2. Distended gallbladder with calculi lodged within the gallbladder neckand top normal gallbladder wall thickness. Acute cholecystitis is notexcluded. 3. Normal caliber common duct. 4. Chronic hepatocellular disease/fatty infiltration. Teleyee LINARES ([id number]) -------- FINAL REPORT -------- Dictated By: Isabela Perales Dictated Date: 02/05/2025 09:44 ET Assigned Physician: Isabela Perales Reviewed and Electronically Signed By: Isabela Perales Signed Date: 02/05/2025 09:50 ET Workstation ID: [id number] Transcribed By: Self Edit Transcribed Date: 02/05/2025 09:44 ET us Nelson Rhoades MD [facility] US PROCEDURES Final R esult * B-type natriuretic peptide (02/05/2025 7:31 AM EDT) BNP 11 <=100 pcg/mL LAB CHEMISTRY METHOD 02/05/2025 8:36 AM EDT [facility] Blood Venous blood specimen / Unknown Venipuncture / Unknown 02/05/2025 7:31 AM EDT 02/05/2025 7:51 AM EDT Yessi Larkin MD LAB BLOOD ORDERABLES Final Res ult Performing Organization Address [facility]/ZIP Co de Phone Number [facility] [address] [place] [address], [place] [phone] * Magnesium (02/05/2025 7:31 AM EDT) Magnesium 2.2 1.9 - 2.6 mg/dL LAB CHEMISTRY METHOD 02/05/2025 8:21 AM EDT [facility] Blood Venous blood specimen / Unknown Venipuncture / Unknown 02/05/2025 7:31 AM EDT 02/05/2025 7:51 AM EDT Yessi Larkin MD LAB BLOOD ORDERABLES Final Res ult Performing Organization Address [facility] Co de Phone Number [facility] [address] [place] [address], [place] [phone] * Lipase (02/05/2025 7:31 AM EDT) Lipase 49 13 - 75 unit/L LAB CHEMISTRY METHOD 02/05/2025 8:21 AM EDT [facility] Blood Venous blood specimen / Unknown Venipuncture / Unknown 02/05/2025 7:31 AM EDT 02/05/2025 7:51 AM EDT us Yessi Larkin MD LAB BLOOD ORDERABLES Final Res ult Performing Organization Address City/[facility]/ZIP Co de Phone Number [facility] [address] [place] [address], [place] [phone] * (ABNORMAL) Comprehensive metabolic panel (02/05/2025 7:31 AM EDT) Sodium 137 133 - 145 mmol/L LAB CHEMISTRY METHOD 02/05/2025 8:21 AM [facility] Potassium 3.9 3.5 - 5.5 mmol/L LAB CHEMISTRY METHOD 02/05/2025 8:21 AM [facility] Chloride 106 96 - 110 mmol/L LAB CHEMISTRY METHOD 02/05/2025 8:21 AM [facility] CO2 27 21 - 32 mmol/L LAB CHEMISTRY METHOD 02/05/2025 8:21 AM [facility] Anion Gap 4 3 - 11 LAB CHEMISTRY METHOD 02/05/2025 8:21 AM [facility] Glucose 149(H) 70 - 100 mg/dL LAB CHEMISTRY METHOD 02/05/2025 8:21 AM [facility] BUN 23 5 - 25 mg/dL LAB CHEMISTRY METHOD 02/05/2025 8:21 AM [facility] Creatinine 1.03 0.50 - 1.10 mg/dL LAB CHEMISTRY METHOD 02/05/2025 8:21 AM [facility] eGFR 64 >=60 mL/min/1. 73m2 LAB CHEMISTRY METHOD 02/05/2025 8:21 AM [facility] Comment:Calculation based on the Chronic Kidney Disease Epidemiology Collaboration (CKD-EPI) equation refit without adjustment for race. BUN/Creatinine Ratio 22.3 LAB CHEMISTRY METHOD 02/05/2025 8:21 AM [facility] Calcium 9.3 8.5 - 10.5 mg/dL LAB CHEMISTRY METHOD 02/05/2025 8:21 AM [facility] AST (SGOT) 12 10 - 42 unit/L LAB CHEMISTRY METHOD 02/05/2025 8:21 AM [facility] ALT (SGPT) 32 10 - 60 unit/L LAB CHEMISTRY METHOD 02/05/2025 8:21 AM EDT [facility] Alkaline Phosphatase 63 42 - 121 unit/L LAB CHEMISTRY METHOD 02/05/2025 8:21 AM T [facility] Total Protein 7.3 6.0 - 8.0 g/dL LAB CHEMISTRY METHOD 02/05/2025 8:21 AM T [facility] Albumin 3.7 3.2 - 5.0 g/dL LAB CHEMISTRY METHOD 02/05/2025 8:21 AM T [facility] Total Bilirubin 0.3 0.0 - 1.4 mg/dL LAB CHEMISTRY METHOD 02/05/2025 8:21 AM T [facility] Blood Venous blood specimen / Unknown Venipuncture / Unknown 02/05/2025 7:31 AM EDT 02/05/2025 7:51 AM EDT us Yessi Larkin MD LAB BLOOD ORDERABLES Final Res ult [facility] [address] [place] [address], from Last 3 Months Insurance MEDICAID - [place] Care Teams Inside Sales Lead Relationship Specialty Start Date End Date Physician, Pcp Unknown PCP - General 02/05/25
== END 2025-02-26 14:22 | disposition home or self-care (01) ==
LOC: HO.HMCH 13:35
PROVIDERS: PCP Internal Medicine; Visit Provider Internal Medicine
DX: K80.00 Calculus of gallbladder with acute cholecystitis without obstruction (principal); E11.9 Type 2 diabetes mellitus without complications; I10 Essential (primary) hypertension; D56.3 Thalassemia minor

== ENCOUNTER → 2025-02-26 13:34 | Outpatient (BNVA) | payer OTHER, SELFPAY | PROVIDERS: PCP Internal Medicine; Visit Provider Internal Medicine | DX: E11.9 Type 2 diabetes mellitus without complications (principal); R53.83 Other fatigue; R19.7 Diarrhea, unspecified; I10 Essential (primary) hypertension; D56.3 Thalassemia minor; Z90.49 Acquired absence of other specified parts of digestive tract; Z87.19 Personal history of other diseases of the digestive system | CPT/HCPCS: 96127; 99212 ==

== ENCOUNTER 2025-05-05 07:49 | Outpatient (REF) | payer OTHER, SELFPAY ==
--- OUTSIDE RECORDS SUMMARY | 2025-05-05 07:51 | XMS_ITS | Clinical Summary ---
Author Organization [facility] Address [address] [place] [address] Phone Care Team Providers Care Splunk Developer Name Role Phone Physician, Pcp Unknown Primary Care Provider Jackie vailable Allergies No known active allergies Medications lisinopriL (PRINIVIL,ZESTRI L) 10 mg tablet Take 1 tablet (10 [...] Max Daily Amount: 20 mg 10 tablet Active Additional Information Patient not taking.Reported on 02/25/2025 docusate sodium (COLACE) 100 mg capsule Take 1 capsule (100 mg total) by mouth 2 (two) times a day. 14 each Active Additional Information Patient not taking.Reported on 02/25/2025 acetaminophen (TYLENOL) 500 mg tablet Take 2 tablets (1,000 mg total) by mouth every 8 (eight) hours. 24 tablet Active Active Problems Problem Noted Date Diagnosed Date Acute cholecystitis 02/05/2025 Encounters Date Type Department Care Team Description 02/25/2025 2:30 PM EDT Office Visit [facility] Surgery [address] [phone] Kanu Gonzalez MD Acute calculous cholecystitis (Primary Dx) 02/17/2025 1:00 PM EDT Office Visit [address] [phone] Darren Crain MD Acute calculous cholecystitis (Primary Dx) 02/05/2025 3:18 PM EDT Anesthesia Event [facility] OR [address] [place] [phone] Jessy Brown MD Pierce, Trudy A, CRNA 02/05/2025 3:03 PM EDT - 02/05/2025 4:33 PM EDT Surgery [facility] OR [address] [place] [phone] Darren Crain MD CHOLECYSTECTOMY LAPAROSCOPIC 02/05/2025 6:45 AM EDT - 02/06/2025 2:30 PM EDT Emergency [facility] [address] [place] [phone] Nelson Rhoades MD Sobral, Filipe, MD Acute cholecystitis (Primary Dx); Calculus of gallbladder with acute cholecystitis without obstruction Discharge Disposition: Home or Self Care from Last 3 Months Social History Tobacco Use Types Packs/Day Years Used Date Smoking Tobacco: Never Smokeless Tobacco: Never Tobacco Cessation:Counseling Given: Not Answered Interpersonal Safety Answer Date Record ed Physical Abuse Unrecognized value 02/05/2025 Verbal Abuse Unrecognized value 02/05/2025 Comments Unknown Sex and Gender Information [...] Last Done Comments Breast Cancer Screening 1970 Colorectal Cancer Screening: Colonoscopy 1970 Hepatitis B Vaccines (1 of 3 - 19+ 3-dose series) 1989 04/21/2016 Cervical Cancer Screening: P ap Smear 1991 Pneumococcal Vaccine: 50+ Years (1 of 1 - PCV) 01/27/2020 Zoster Vaccines (1 of 2) 01/27/2020 HIV Screening 06/01/2022 Hepatitis C Screening 06/01/2022 Social Influencers of Health Screening 06/01/2022 Depression Screening 07/03/2024 COVID-19 Vaccine (4 - 2024-2 6 season) 2025 09/03/2021, 09/03/2020, 08/14/2020 Influenza Vaccine (#1) 2025 DTaP,Tdap,and Td Vaccines (3 - Td or Tdap) 11/14/2032 11/14/2022, 05/04/2016 RSV Immunization Adult Patients (1 - 1-dose 75+ series) 2045 HIB Vaccines Aged Out No longer eligi [...] of4 resultswithin the time period is included. Glucose POCT 125(H) 70 - 100 mg/dL 02/06/2025 11:44 AM EDT [facility] Blood Capillary blood specimen / Unknown 02/06/2025 11:43 AM EDT 02/06/2025 11:46 AM EDT us Darren Crain MD LAB POINT OF CARE TE ST DOCKED DEVICE UNSOLICITED RESULTS Final Result [facility] [address] [place] [address], [place] [phone] * (ABNORMAL) CBC auto differential (02/06/2025 5:54 AM EDT) Only the most recent of2 resultswithin the time period is included. WBC 15.6(H) 4.8 - 10.8 K/mcL LAB HEMETOLOGY METHOD 02/06/2025 7:13 AM EDT [facility] RBC 5.30(H) 3.80 - 4.80 M/mcL LAB [facility]OLOG[facility] Hemoglobin 11.8 11.5 - 16.0 g/dL LAB HEMETOLOGY METHOD 02/06/2025 7:13 AM EDT [facility] Hematocrit 38.9 35.0 - 47.0 % LAB HEMETOLOGY METHOD 02/06[facility]2025 [facility] MCV 73.3(L) 79.0 - 98.0 FL LAB HEMETOLOGY METHOD 02/06/2025 7[facility] MCH 22.2(L) 27.0 - 32.0 pcg LAB HEMETOLOGY METHOD 02/06/2025 7:13 AM EDT [facility] MCHC 30.3(L) 32.0 - 37.0 g/dL LAB HEMETOLOGY METHOD 02/06/2025 7[facility] RDW 15.3(H) 11.0 - 15.0 % LAB HEMETOLOGY METHOD 02/06/2025 7[facility] Platelets 209 130 - 400 K/mcL LAB HEMETOLOGY METHOD 02/06/2025 7:13 AM [facility] MPV 10.2 7.0 - 11.0 FL LAB HEMETOLOGY METHOD 02/06/2025 7:13 AM [facility] NRBC 0.0 <1.0 % LAB HEMETOLOGY METHOD 02/06/2025 7:13 AM [facility] NRBC Absolute 0.00 <0.10 K/[facility] LAB HEMETOLOGY METHOD 02/06/2025 7:13 AM [facility] Neutrophils Relative 84.0 % LAB HEMETOLOGY METHOD 02/06/2025 7:13 AM [facility] Lymphocytes Relative 7.6 % LAB HEMETOLOGY METHOD 02/06/2025 7:13 AM [facility] Monocytes Relative 7.7 % LAB HEMETOLOGY METHOD 02/06/2025 7:13 AM [facility] Eosinophils Relative 0.0 % LAB HEMETOLOGY METHOD 02/06/2025 7:13 AM [facility] Basophils Relative 0.1 % LAB HEMETOLOGY METHOD 02/06/2025 7:13 AM [facility] Immature Granulocytes Relative 0.6 % LAB HEMETOLOGY METHOD 02/06/2025 7:13 AM [facility] Neutrophils Absolute 13.12(H) 1.50 - 7.00 K/mcL LAB HEMETOLOGY METHOD 02/06/2025 7:13 AM [facility] Lymphocytes Absolute 1.18 1.00 - 5.00 K/mcL LAB HEMETOLOGY METHOD 02/06/2025 7:13 AM [facility] Monocytes Absolute 1.20(H) 0.20 - 1.00 K/mcL LAB HEMETOLOGY METHOD 02/06/2025 7:13 AM [facility] Eosinophils Absolute 0.00 0.00 - 0.50 K/[facility] HEMETOLOGY METHOD 02/06/2025 7:13 AM EDT [facility] Basophils Absolute 0.01 0.00 - 0.20 K/[facility] HEMETOLOGY METHOD 02/06/2025 7:13 AM EDT [facility] Immature Granulocytes Absolute 0.09(H) 0.00 - 0.03 K/[facility] HEMETOLOGY METHOD 02/06/2025 7:13 AM EDT [facility] Blood Venous blood specimen / Unknown Venipuncture / Unknown 02/06/2025 5:54 AM EDT 02/06/2025 6:46 AM EDT Steven LINARES LAB BLOOD ORDERABLES Final Res ult Performing Organization Address [facility]/ZIP Co de Phone Number [facility] [address] [place] [address], [place] [phone] * SST tube (02/06/2025 5:51 AM EDT) Extra Tube Hold for add-ons. 02/06/2025 8:01 AM EDT [facility] Comment:Auto resulted. Blood Venous blood specimen / Unknown 02/06/2025 5:51 AM EDT 02/06/2025 6:46 AM EDT Darren Crain MD LAB BLOOD ORDERABLES Final Resu lt Performing Organization Address City/[facility]/ZIP Co de Phone Number [facility] [address] [place] [address], [place] [phone] * Tissue exam (02/05/2025 4:25 PM EDT) Final Diagnosis A. Gallbladder, cholecystectomy: - Acute cholecystitis and cholelithiasis. 02/07/2025 1:11 PM EDT [facility] Gross Description A. Gallbladder, : Labeled [...] green and the adventitia is inked black. Club Waiter/Waitress sections are submitted in one cassette including gallbladder (fundus, body and neck), duct margin (inked red), and cross-section adjacent to duct margin (inked black), five pieces. TS 02/07/2025 1:11 PM EDT [facility] Disclaimer Unless otherwise specified, all tissue is 10% NB formalin fixed and paraffin embedded. 02/07/2025 1:11 PM EDT [facility] Tissue Gallbladder structure / Unknown 02/05/2025 4:25 PM EDT 02/06/2025 5:15 AM EDT Darren Crain MD LAB PATHOLOGY ORDERABLES Final Result [facility] [address] [place] [address], * TH AN ENDOTRACHEAL(NO CHARGE) (02/05/2025 3:35 PM EDT) Narrative Federico Martini CRNA - 02/05/2025 3:35 PM EDT Federico [...] of2 resultswithin the time period is included. Culture, Blood No growth at 5 days 02/10/2025 12:01 PM EDT [facility] Blood Venous blood specimen / Unknown Venipuncture / Unknown 02/05/2025 11:13 AM EDT 02/05/2025 11:19 AM EDT Nelson Rhoades MD LAB MICROBIOLOGY - GENERA L ORDERABLES Final Result [facility] [address] [place] [address], [place] [phone] * Lactate (02/05/2025 11:13 AM EDT) Lactate 1.5 0.4 - 2.0 mmol/L LAB CHEMISTRY METHOD 02/05/2025 12:08 PM EDT [facility] Blood Venous blood specimen / Unknown Venipuncture / Unknown 02/05/2025 11:13 AM EDT 02/05/2025 11:19 AM EDT Nelson Rhoades MD LAB BLOOD ORDERABLES Devorah l Result Performing Organization Address [facility] Co de Phone Number [facility] [address] [place] [address], * Troponin I high sensitivity (02/05/2025 9:31 AM EDT) Only the most recent of2 resultswithin the time period is included. [facility] High Sensitivity Troponin I 8 <=54 ng/L LAB CHEMISTRY METHOD 02/05/2025 10:14 AM EDT [facility] Blood Venous blood specimen / Unknown Venipuncture / Unknown 02/05/2025 9:31 AM EDT 02/05/2025 9:42 AM EDT Narrative [facility] - 02/05/2025 10:14 AM EDT High levels of biotin in samples may falsely decrease hsTroponin values. Use caution when interpreting hsTroponin results in patients taking biotin who exhibit renal impairment (eGFR <60) or in patients taking more than 20 mg/day of biotin. Yessi Larkin MD LAB BLOOD ORDERABLES Final Res ult Performing Organization Address [facility] Co de Phone Number [facility] [address] [place] [address], * ECG 12 lead (02/05/2025 8:17 AM EDT) Only the most recent of2 resultswithin the time period is included. [facility] Ventricular Rate ECG 66 BPM GEMUSE Atrial Rate 66 BPM GEMUSE P-R Interval 182 ms GEMUSE QRS Duration 76 ms GEMUSE Q-T Interval 398 ms GEMUSE QTc 417 ms GEMUSE R Kramer -23 degrees GEMUSE T Kramer 155 degrees GEMUSE ECG Interpretation Normal sinus [...] 8:17 AM EDT 02/05/2025 6:39 PM EDT us Yessi Larkin MD ECG ORDERABLES Final Result GEMUSE * US Abdomen Limited (02/05/2025 8:04 [...] duct. 4. Chronic hepatocellular disease/fatty infiltration. [place] ([id number]) -------- FINAL REPORT -------- Dictated By: Isabela Perales Dictated Date: 02/05/2025 09:44 ET Assigned Physician: Isabela Perales Reviewed and Electronically Signed By: Isabela Perales Signed Date: 02/05/2025 09:50 ET Workstation ID: [id number] Transcribed By: Self Edit Transcribed Date: 02/05/2025 [...] 4. Chronic hepatocellular disease/fatty infiltration. [place]eler[place] MILAGROS ([id number]) -------- FINAL REPORT -------- Dictated By: Isabela Perales Dictated Date: 02/05/2025 09:44 ET Assigned Physician: Isabela Perales Reviewed and Electronically Signed By: Isabela Perales Signed Date: 02/05/2025 09:50 ET Workstation ID: [id number] Transcribed By: Self Edit Transcribed Date: 02/05/2025 09:44 ET Nelson Rhoades MD IMG US PROCEDURES Final R esult * B-type natriuretic peptide (02/05/2025 7:31 AM EDT) BNP 11 <=100 pcg/mL LAB CHEMISTRY METHOD 02/05/2025 8:36 AM EDT [facility] Blood Venous blood specimen / Unknown Venipuncture / Unknown 02/05/2025 7:31 AM EDT 02/05/2025 7:51 AM EDT Yessi Larkin MD LAB BLOOD ORDERABLES Final Res ult [facility] [address] [place] [address], [place] [phone] * Magnesium (02/05/2025 7:31 AM EDT) Magnesium 2.2 1.9 - 2.6 mg/dL LAB CHEMISTRY METHOD 02/05/2025 8:21 AM EDT [facility] Blood Venous blood specimen / Unknown Venipuncture / Unknown 02/05/2025 7:31 AM EDT 02/05/2025 7:51 AM EDT Yessi Larkin MD LAB BLOOD ORDERABLES Final Res ult Performing Organization Address [facility]/ZIP Co de Phone Number [facility] [address] [place] [address], * Lipase (02/05/2025 7:31 AM EDT) Lipase 49 13 - 75 unit/L LAB CHEMISTRY METHOD 02/05/2025 8:21 AM EDT [facility] Blood Venous blood specimen / Unknown Venipuncture / Unknown 02/05/2025 7:31 AM EDT 02/05/2025 7:51 AM EDT Yessi Larkin MD LAB BLOOD ORDERABLES Final Res ult Performing Organization Address [facility]/ZIP Co de Phone Number [facility] [address] [place] [address], [place] [phone] * (ABNORMAL) Comprehensive metabolic panel (02/05/2025 7:31 AM EDT) Pathologist [facility] Sodium 137 133 - 145 mmol/L LAB CHEMISTRY METHOD 02/05/2025 8:21 AM [facility] Potassium 3.9 3.5 - 5.5 mmol/L LAB CHEMISTRY METHOD 02/05/2025 8:21 AM [facility] Chloride 106 96 - 110 mmol/L LAB CHEMISTRY METHOD 02/05/2025 8:21 AM [facility] CO2 27 21 - 32 mmol/L LAB CHEMISTRY METHOD 02/05/2025 8:21 AM [facility] Anion Gap 4 3 - 11 LAB CHEMISTRY METHOD 02/05/2025 8:21 AM [facility] Glucose 149(H) 70 - 100 mg/dL LAB CHEMISTRY METHOD 02/05/2025 8:21 AM [facility] BUN 23 5 - 25 mg/dL LAB CHEMISTRY METHOD 02/05/2025 8:21 AM [facility] Creatinine 1.03 0.50 - 1.10 mg/dL LAB CHEMISTRY METHOD 02/05/2025 8:21 AM [facility] eGFR 64 >=60 mL/min/1. 73m2 LAB CHEMISTRY METHOD 02/05/2025 8:21 AM [facility] Comment:Calculation based on the Chronic Kidney Disease Epidemiology Collaboration (CKD-EPI) equation refit without adjustment for race. BUN/Creatinine Ratio 22.3 LAB CHEMISTRY METHOD 02/05/2025 8:21 AM [facility] Calcium 9.3 8.5 - 10.5 mg/dL LAB CHEMISTRY METHOD 02/05/2025 8:21 AM [facility] AST (SGOT) 12 10 - 42 unit/L LAB CHEMISTRY METHOD 02/05/2025 8:21 AM [facility] ALT (SGPT) 32 10 - 60 unit/L LAB CHEMISTRY METHOD 02/05/2025 8:21 AM [facility] Alkaline Phosphatase 63 42 - 121 unit/L LAB CHEMISTRY METHOD 02/05/2025 8:21 AM [facility] Total Protein 7.3 6.0 - 8.0 g/dL LAB CHEMISTRY METHOD 02/05/2025 8:21 AM [facility] Albumin 3.7 3.2 - 5.0 g/dL LAB CHEMISTRY METHOD 02/05/2025 8:21 AM [facility] Total Bilirubin 0.3 0.0 - 1.4 mg/dL LAB CHEMISTRY METHOD 02/05/2025 8:21 AM [facility] Blood Venous blood specimen / Unknown Venipuncture / Unknown 02/05/2025 7:31 AM EDT 02/05/2025 7:51 AM EDT us Yessi Larkin MD LAB BLOOD ORDERABLES Final Res ult [facility] [address] [place] [address], [place] [phone] from Last 3 Months Insurance MEDICAID - [place] [facility] [employer] Care Teams Splunk Developer Relationship Specialty Start Date End Date Physician, Pcp Unknown PCP - General 02/05/25
[2025-05-05 08:06] LABS: MANUAL DIFF FLAG NO
[2025-05-05 08:22] LABS: Hematocrit 45.1 % (37.0-47.0); Hemoglobin 13.5 g/dl (12.0-16.0); Imm Gran Abs Auto 0.03 X10*3/uL (0.00-0.03); Imm Gran Pct Auto 0.3 % (0.0-0.4); Lymphocytes Absolute Auto 2.3 X10*3/uL (1.2-4.9); Mean Corpuscular HGB Conc 29.9 g/dl (31.0-35.0); Mean Corpuscular Hemoglobin 22.4 pg (27.0-33.0); Mean Corpuscular Volume 74.7 fL (80.0-98.0); NRBC Abs Auto 0.000 X10*3/uL (0.0-0.012); NRBC Pct Auto 0.0 /100WBC (0.0-0.2); Platelet Count 230 X10*3/uL (160-400); Red Blood Count 6.04 X10*6/uL (4.20-5.50); White Blood Count 9.9 X10*3/uL (4.8-10.8)
[2025-05-05 08:31] LABS: Hemoglobin A1C 152.7083 umol/L
[2025-05-05 08:36] LABS: Appearance Urine Clear; Glucose Urine UA >=1000 mg/dL (Negative); PH 5.5 (5.0-9.0); Specific Gravity - Urine >= 1.030 (1.005-1.025); UMIC TRIGGER UACC YES
[2025-05-05 08:57] LABS: Alanine Aminotransferase 19 U/L (0-31); Albumin Level 4.2 g/dL (3.5-5.0); Alkaline Phosphatase 72 U/L (39-117); Anion Gap 10 (12-20); Aspartate Amino Transferase 19 U/L (5-31); Blood Urea Nitrogen 20 mg/dL (9-16); Calcium 8.9 mg/dL (8.4-10.2); Carbon Dioxide 27 mmol/L (22-29); Chloride 106 mmol/L (96-108); Cholesterol 186 mg/dL (<200); Estimated Glomerular Filt Rate > 60; HDL Cholesterol 42 mg/dL (>40); Potassium 4.1 mmol/L (3.3-5.1); Sodium 139 mmol/L (135-145); Total Protein 7.6 g/dL (6.5-8.0); Triglycerides 111 mg/dL (<150); Uric Acid 4.3 mg/dL (2.4-5.7)
[2025-05-05 09:15] LABS: Microalbum/Creatinine Ratio Ur 4.0 ug/mg cr (<30)
== END 2025-05-05 07:50 | disposition home or self-care (01) ==
LOC: HO.LAB 07:49
PROVIDERS: PCP Internal Medicine; Visit Provider Internal Medicine
DX: E11.9 Type 2 diabetes mellitus without complications (principal); M25.441 Effusion, right hand; I10 Essential (primary) hypertension; D56.3 Thalassemia minor; G43.909 Migraine, unspecified, not intractable, without status migrainosus; M10.9 Gout, unspecified; E55.9 Vitamin D deficiency, unspecified; M79.644 Pain in right finger(s); M25.561 Pain in right knee; E66.9 Obesity, unspecified; R30.0 Dysuria; D64.9 Anemia, unspecified; E78.00 Pure hypercholesterolemia, unspecified
CPT/HCPCS: 36415; 80053; 80061; 81001; 82043; 82306; 82570; 83036; 84443; 84550; 85025; 99212

== ENCOUNTER 2025-05-05 09:45 | Outpatient (AMB) | payer OTHER, SELFPAY ==
[2025-05-05 10:03] VITALS: BP 126/76; PULSE 94; O2SAT 97; BMI 37.4
--- NOTE | 2025-05-05 10:03 | A.OFFPC_ITS ---
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 Required: No Accompanied by: Self / Same As Patient Allergies No Known Allergies Allergy (Verified 05/05/25 10:33) Medication List - Last Reconciled 05/05/25 by Hilario Keen MD [id number] [id number] mg (Fioricet) 1 cap PO Q8H PRN 30 days cholecalciferol (vitamin D3) 50 mcg PO DAILY 90 days empagliflozin (Jardiance) 10 mg PO QAM 30 days fluticasone propionate 50 mcg/actuation 1 spray intranasal BID hydrocortisone 1% 1 appl topical TID PRN ibuprofen 400 mg PO Q6H PRN indomethacin 50 mg PO TID PRN lisinopril 10 mg PO DAILY 90 days loratadine (Claritin) 10 mg PO DAILY PRN metformin ER 1,000 mg (2 x 500 mg) PO BID sitagliptin phosphate (Januvia) 100 mg PO DAILY 90 days sumatriptan succinate take 1 tab at onset of headache; if no relief, may repeat 1 tab after at least 2 hrs; max = 2 tabs/24 hrs PO 90 days tizanidine 4 mg PO Q8H PRN 10 days topiramate 25 mg PO BID triamcinolone acetonide 0.5% 1 appl topical TID PRN Tobacco use date assessed: 05/05/25 Dental Screening Dental Screen Date: 05/05/25 Did you have a dental visit in the last 12 months?: Yes Did you have a dental problem in the last 6 months where you did not have access to dental care?: No Was dental information given to patient?: Patient has dentist HPI DM, hyperlipidemia HPI Details Patient comes in today for her follow up visit States that she feels okay except for some pain and swelling of the distal half of her right 5th finger for the past 2 to 3 weeks Patient states that she does not really recall what she did or what could have happened to her finger but states that the pain in her finger is getting worse lately and she is unable to completely bend or flex her finger She denies any headaches or dizziness Denies any chest pains, no increased SOB No nausea/vomiting, no abdominal pain No change in bowel habits noted She had her follow up labs done earlier this morning - to discuss her results [facility] Medical History Acute cholecystitis due to biliary calculus Alpha thalassemia silent carrier Obesity (BMI 30-39.9) Left hip pain Migraine Costochondritis Osteoarthritis of right hand Morbid obesity with BMI of 40.0-44.9, adult Vitamin D deficiency Complex endometrial hyperplasia with atypia Iron deficiency anemia Nonintractable headache Dyslipidemia Benign essential hypertension Type 2 diabetes mellitus without complication, with no history of insulin use Surgical History History of laparoscopic cholecystectomy History of knee surgery History of total abdominal hysterectomy and bilateral salpingo-oophorectomy (~01/20/20) History of section History of tubal ligation Family History Father Hypertension Diabetes Mother Lupus Maternal Grandmother Uterine cancer Maternal Aunt Breast cancer Paternal Grandmother Uterine cancer Social History Housing: Apartment Alcohol intake: never Patient Tobacco Use Status: Never used Tobacco e-Cigarette/Vaping Use: Never Used Second Hand Smoke Exposure: Yes service: No Current occupational status: employed Current occupation: [employer], 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 Depression Screening Interpretation: Negative Depression Screening Done: Yes Source: Developed by Drs. David Harris, Katelynn Mueller, Anthony Downing and colleagues, with an educational mitra from [employer]. Thrive Questionnaire Date Thrive assessed: 12/26/24 I am a: Patient What is your living situation today?: I have a steady place to live Within the past 12 months, did the food you bought not last and you didn't have the money to get more?: Never true Within the past 12 months, did you worry whether your food would run out before you got money to buy more?: Never true Do you have trouble paying for medicines?: I choose not to answer this question Do you have trouble getting transportation to medical appointments?: No Do you have trouble paying your heating and electricity bill?: I choose not to answer this question Do you have trouble taking care of your child, family member or friend?: No Do you have trouble with day-to-day activities such as bathing, preparing meals, shopping, managing finances, etc.?: No Are you currently unemployed and looking for a job?: No Are you interested in more education?: No Please select the resources that you would like help with: None Currently or been in a relationship where the following occur: No concerns reported THRIVE Score: 0 AUDIT C Alcohol Use Questionnaire (AUDIT-C) 1. How often do you have a drink containing alcohol?: Never 3. How often do you have six or more drinks on one occasion?: Never Total Score: 0 Score Reviewed/Action Taken: Yes SANA-7 AMB Questionnaire SANA-7 Date SANA - 7 assessed: 01/01/25 Source: Developed by Drs. David Harris, Katelynn Mueller, Anthony Downing and colleagues, with an educational mitra from [employer]. Review of Systems Const Denies chills, Denies fatigue, Denies fever(s) and Denies headache(s) ENT Denies dysphagia, Denies dizziness, Denies otalgia, Denies headache(s), Denies neck pain, Denies odynophagia and Denies sore throat Card Denies chest pain, Denies rapid heart rate, Denies irregular heart rhythm, Denies palpitations and Denies dyspnea Resp Denies chest congestion, Denies cough and Denies dyspnea GI Denies abdominal pain, Denies constipation, Denies dysphagia, Denies heartburn, Reports diarrhea, Reports loose stools (on and off since her GB surgery), Denies nausea, Denies odynophagia and Denies vomiting Denies difficulty voiding, Denies dysuria, Denies urinary incontinence and Denies urinary urgency Musc Denies back pain, Reports arthralgias (right knee, on and off - mostly mild; increased over her R 5th finger) and Denies neck pain Skin/Breast Denies rash Neuro Denies dizziness, Denies headache(s) and Denies paresthesias Psych Denies anxiety and Denies depression Endo Denies fatigue and Denies palpitations Rojelio/Lymph Denies easy bruising Physical exam (Primary Care) Vital Signs: Last Vital Signs Pulse 94 05/05/25 10:03 BP 126/76 05/05/25 10:03 Pulse Ox 97 05/05/25 10:03 Oxygen Delivery Method Room Air 05/05/25 10:03 BMI result Body Mass Index 37.4 Tobacco/Smoking Status: Tobacco use Status Tobacco use date assessed 05/05/25 05/05/25 10:08 Patient Tobacco Use Status Never used Tobacco 05/05/25 10:08 e-Cigarette/Vaping Use Never Used 05/05/25 10:08 Depression Screening Interpretation: Negative Thrive Assessment: Date of Thrive Assessment Date Thrive assessed 12/26/24 05/05/25 10:08 Currently or been in a relationship where the following occur: No concerns reported Const General: no acute distress and alert HENMT Ears: TM's normal bilaterally and EAC's normal Throat: Yes posterior oropharynx normal and Yes tonsils normal (no TP congestion) Neck Neck: Yes supple and No lymphadenopathy Thyroid: Thyroid normal Resp Auscultation: clear to auscultation bilaterally, no rales and no wheezes Cardio Rate: regular rate Rhythm: regular rhythm Heart sounds: no murmurs GI Palpation (GI): Soft to palpation and nontender Auscultation: normal bowel sounds General: Yes no CVA tenderness Back/Spine/Pelvis Back: no CVA tenderness Thoracic/Lumbar Spine: No lumbar spinal tenderness Skin Rashes: no rashes Extrem General: Yes no clubbing, cyanosis or edema Right upper extremity: Extremity exam: right hand Details: tenderness Location: of the 5th digit Location: at the distal phalanx and swelling Location: of the 5th digit Location: at the distal phalanx Right lower extremity: knee Details: tenderness (minimal) Location: of the pre- patellar area and normal ROM; no swelling Results Reviewed Results Reviewed: Laboratory Tests 05/05/25 05/05/25 07:59 08:05 WBC 9.9 Hgb 13.5 Hct 45.1 Plt Count 230 Sodium 139 Potassium 4.1 Creatinine 0.75 Estimated GFR > 60 Fasting Glucose 130 H Hemoglobin A1c % 6.2 H Uric Acid 4.3 Calcium 8.9 AST 19 ALT 19 Triglycerides 111 Cholesterol 186 LDL Cholesterol, Calc 122 H HDL Cholesterol 42 25-OH Vitamin D Total 38.3 TSH 2.00 Ur Specific [place] >= 1.030 H Urine Protein Negative Urine Glucose (UA) >=1000 H Urine Blood Negative Urine Nitrite Negative Ur Leukocyte Esterase Negative Microalb/Creat Ratio 4.0 Coding Level of Care Code Est Pt Level 4 (51415) Complex EM visit Add On G2211 Diagnoses Type 2 diabetes mellitus without complication, with no history of insulin use E11.9 Benign essential hypertension I10 Dyslipidemia E78.5 Alpha thalassemia silent carrier D56.3 Migraine without status migrainosus, not intractable, unspecified migraine type G43.909 Migraine type: unspecified Status migrainosus presence: without status migrainosus Intractability: not intractable Acute gout of right ankle, unspecified cause M10.9 Gout site: ankle Gout etiology: unspecified cause Chronicity: acute Laterality: right Vitamin D deficiency E55.9 Swelling of finger joint of right hand M25.441 Pain in finger of right hand M79.644 Right knee pain, unspecified chronicity M25.561 Chronicity: unspecified Obesity (BMI 30-39.9) E66.9 Assessment & Plan Assessment & Plan (1) Type 2 diabetes mellitus without complication, with no history of insulin use: Code(s): E11.9 - Type 2 diabetes mellitus without complications Category: Medical Plan: Patient's HgbA1c was at 6.2% on her labs done earlier this morning (was previously at 6.4% a few months ago) - goal is at least <7.0% but ideally <6.5% Reinforced diabetic diet Continue Metformin ER 500 mg 2 tablets (1000 mg) BID and Januvia 100 mg QD Will recheck her FBS and HgbA1c in 4 months for follow up (2) Benign essential hypertension: Code(s): I10 - Essential (primary) hypertension Category: Medical Plan: Reinforced low-sodium diet - goal is systolic BP of 120 mm or less Continue Lisinopril 10 mg QD (3) Dyslipidemia: Code(s): E78.5 - Hyperlipidemia, unspecified Category: Medical Plan: Results of her labs done earlier today reviewed and discussed with patient - she is cautioned that her total and LDL cholesterol levels have both gone up again slightly from previous Reinforced low cholesterol diet - she is again reminded that her LDL cholesterol should ideally be at <100 mg/dl as she is a diabetic She declines offer again to start her on statins for her cholesterol and prefers not to take any more Rx if she can avoid them Patient has also been advised of current recommendations regarding statin Tx as standard in diabetics irregardless of cholesterol numbers Will recheck her fasting lipids and labs in 4 months for follow up (4) Alpha thalassemia silent carrier: Code(s): D56.3 - Thalassemia minor Category: Medical Plan: Patient's H/H have remained normal but her CBC continue to present with microcytosis and hypochromia (which have been present for a few years) and do not appear to be correcting with iron supplementation; RDW has also been normal on her labs Suspect that she may have alpha thalassemia (carrier or trait) - her Hgb electrophoresis suggested the same Her recent ferritin level was normal; her iron function tests have also all come back normal Patient has been advised that she is a carrier and as she does not have anemia or any acute symptoms, no treatments or further testings are needed or indicated She does need to consider (either herself or her children) genetic counseling, and that this is mostly for the sake of her future generations (5) Migraine: Code(s): G43.909 - Migraine, unspecified, not intractable, without status migrainosus Category: Medical Qualifiers: Migraine type: unspecified Status migrainosus presence: without status migrainosus Intractability: not intractable Qualified Code(s): G43.909 - Migraine, unspecified, not intractable, without status migrainosus Plan: She was diagnosed with migraine headaches by neurology a couple of years ago Continue Topiramate 25 mg BID for headache prophylaxis - her headaches have been well-controlled on prophylactic Rx Continue Sumatriptan 100 mg PRN and/or Fioricet PRN for symptomatic treatment/relief (6) Gout: Code(s): M10.9 - Gout, unspecified Category: Medical Qualifiers: Gout site: ankle Gout etiology: unspecified cause Chronicity: acute Laterality: right Qualified Code(s): M10.9 - Gout, unspecified Plan: She was diagnosed with gout in the right ankle at the walk-in clinic a couple of years ago; symptoms have since resolved with Tx with Indomethacin and she has had no recurrence of symptoms since Serum uric acid level was normal at 5.0 and 4.2 when previously checked a few months ago and at 4.3 on her recent labs Reinforced low purine diet (7) Vitamin D deficiency: Code(s): E55.9 - Vitamin D deficiency, unspecified Category: Medical Plan: Continue Vitamin D3 2000 units QD (8) Swelling of finger joint of right hand: Code(s): M25.441 - Effusion, right hand Category: Medical Plan: Will send patient for x-rays of the right 5th finger for further evaluation (9) Pain in finger of right hand: Code(s): M79.644 - Pain in right finger(s) Category: Medical Plan: Will send patient for x-rays of the right 5th finger for further evaluation (10) Right knee pain: Code(s): M25.561 - Pain in right knee Category: Medical Qualifiers: Chronicity: unspecified Qualified Code(s): M25.561 - Pain in right knee Plan: X-rays of her right knee done a few months ago revealed satisfactory appearance of right total knee prosthesis although there are multiple loose bodies within the posterior knee joint but without significant change from the prior study States that her knee is actually feeling much better lately She was seen by orthopedics in November 2023 and was advised that she had patellar tendinitis and the home exercise program that she was instructed on has helped her a lot Follow up with orthopedics as scheduled (11) Obesity (BMI 30-39.9): Code(s): E66.9 - Obesity, unspecified Category: Medical Plan: Reinforced diet/exercise as tolerated/lose weight Plan Follow up in 4 months Orders: Orders XR finger RT min 2V Today M25.441 - Effusion, right hand, M79.644 - Pain in right finger(s) Hemoglobin A1c 4 Months E11.9 - Type 2 diabetes mellitus without complications Complete Blood Count Auto Diff 4 Months D64.9 - Anemia, unspecified Microalbumin, Random (w Creat) 4 Months E11.9 - Type 2 diabetes mellitus without complications UA CC w/rflx Micro + Cult 4 Months R30.0 - Dysuria Comprehensive [place]. Panel Fast 4 Months E78.00 - Pure hypercholesterolemia, unspecified Lipid Panel 4 Months E78.00 - Pure hypercholesterolemia, unspecified TSH reflex Free T4 4 Months E78.00 - Pure hypercholesterolemia, unspecified Vitamin D 25-OH Total 4 Months E55.9 - Vitamin D deficiency, unspecified
== END 2025-05-05 10:43 | disposition home or self-care (01) ==
LOC: HO.HMCH 09:46
PROVIDERS: PCP Internal Medicine; Visit Provider Internal Medicine
DX: E11.69 Type 2 diabetes mellitus with other specified complication (principal); I10 Essential (primary) hypertension; E66.9 Obesity, unspecified; Z68.37 Body mass index [BMI] 37.0-37.9, adult; E78.5 Hyperlipidemia, unspecified; D56.3 Thalassemia minor; G43.909 Migraine, unspecified, not intractable, without status migrainosus; M10.9 Gout, unspecified; E55.9 Vitamin D deficiency, unspecified; M25.441 Effusion, right hand; M79.644 Pain in right finger(s); M25.561 Pain in right knee

== ENCOUNTER 2025-05-06 09:02 | Outpatient (REF) | payer OTHER, SELFPAY ==
--- NOTE | ~2025-05-06 | XR_ITS ---
EXAMINATION: XR FINGER, RIGHT CLINICAL INFORMATION: M25.441 - Effusion, right hand; attention fifth digit COMPARISON: None available. TECHNIQUE: Three views of the right fifth digit. FINDINGS: There is normal bone mineralization. There is no fracture, dislocation, or suspicious bone lesion. There is moderate to severe arthropathy of the DIP joint of the fifth digit, with an associated central erosion and productive bony changes. 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 Similar but less severe changes are seen in the DIP joints of the third and fourth digits. Joint spaces are otherwise preserved. There is mild soft tissue swelling surrounding the DIP joint of the fifth digit. 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 Electronically signed by: Niels Alvarado MD 05/06/2025 09:42 AM [place]
--- OUTSIDE RECORDS SUMMARY | 2025-05-06 09:45 | XMS_ITS | Clinical Summary ---
Author Organization [facility] Address [address] [place] [address] Phone Care Team Providers Care Getter Operator Name Role Phone Physician, Pcp Unknown Primary [...] Description 02/25/2025 2:30 PM EDT Office Visit [facility] [address] [phone] Kanu Gonzalez MD Acute calculous cholecystitis (Primary Dx) 02/17/2025 1:00 PM EDT Office Visit [address] [phone] Darren Crain MD Acute calculous cholecystitis (Primary Dx) 02/05/2025 3:18 PM EDT Anesthesia Event [facility] OR [address] [place] [phone] Jessy Brown MD Pierce, Trudy A, CRNA 02/05/2025 3:03 PM EDT - 02/05/2025 4:33 PM EDT Surgery [facility] OR [address] [place] [phone] Darren Crain MD CHOLECYSTECTOMY LAPAROSCOPIC 02/05/2025 6:45 AM EDT - 02/06/2025 2:30 PM EDT Emergency [facility] [address] [place] [phone] Nelson Rhoades MD Sobral, Filipe, MD Acute [...] - 100 mg/dL 02/06/2025 11:44 AM EDT [facility] ([facility]) [facility] Blood Capillary blood specimen / Unknown 02/06/2025 11:43 AM EDT 02/06/2025 11:46 AM EDT us Darren Crain MD LAB POINT OF CARE TE ST DOCKED DEVICE UNSOLICITED RESULTS Final Result [facility] [address] [place] [address], [place] [phone] * (ABNORMAL) CBC auto differential (02/06/2025 5:54 AM EDT) Only the most recent of2 resultswithin the time period is included. WBC 15.6(H) 4.8 - 10.8 K/mcL LAB HEMETOLOGY METHOD 02/06/2025 7:13 AM EDT [facility] RBC 5.30(H) 3.80 - 4.80 M/mcL LAB HEMETOLOGY METHOD 02/[facility] Hemoglobin 11.8 11.5 - 16.0 g/dL LAB HEMETOLOGY METHOD 02/06/2025 7:13 AM EDT [facility] Hematocrit 38.9 35.0 - 47.0 % LAB HEMETOLOGY METHOD 02/06/2025 7:13 [facility] MCV 73.3(L) 79.0 - 98.0 FL LAB HEMETOLOGY METHOD 02/06/2025 7:13 [facility] MCH 22.2(L) 27.0 - 32.0 pcg LAB HEMETOLOGY METHOD 02/06/2025 7:13 AM EDT [facility] MCHC 30.3(L) 32.0 - 37.0 g/dL LAB HEMETOLOGY METHOD 02/06/2025 7:13 [facility] RDW 15.3(H) 11.0 - 15.0 % LAB HEMETOLOGY METHOD 02/06/2025 7:13 [facility] Platelets 209 130 - 400 K/mcL LAB HEMETOLOGY METHOD 02/06/2025 7:13 AM [facility] MPV 10.2 7.0 - 11.0 FL LAB HEMETOLOGY METHOD 02/06/2025 7:13 AM [facility] NRBC 0.0 <1.0 % LAB HEMETOLOGY METHOD 02/06/2025 7:13 AM [facility] NRBC Absolute 0.00 <0.10 [facility] HEMETOLOGY METHOD 02/06/2025 7:13 AM [facility] Neutrophils Relative 84.0 % LAB HEMETOLOGY METHOD 02/06/2025 7:13 AM [facility] Lymphocytes Relative 7.6 % LAB HEMETOLOGY METHOD 02/06/2025 7:13 AM [facility] Monocytes Relative 7.7 % LAB HEMETOLOGY METHOD 02/06/2025 7:13 AM [facility] Eosinophils Relative 0.0 % LAB HEMETOLOGY METHOD 02/06/2025 7:13 AM [facility] Basophils Relative 0.1 % LAB HEMETOLOGY METHOD 02/06/2025 7:13 AM [facility] Immature Granulocytes Relative 0.6 % LAB HEMETOLOGY METHOD 02/06/2025 7:13 AM [facility] Neutrophils Absolute 13.12(H) 1.50 - 7.00 K/mcL LAB HEMETOLOGY METHOD 02/06/2025 7:13 AM [facility] Lymphocytes Absolute 1.18 1.00 - 5.00 K/mcL LAB HEMETOLOGY METHOD 02/06/2025 7:13 AM [facility] Monocytes Absolute 1.20(H) 0.20 - 1.00 K/mcL LAB HEMETOLOGY METHOD 02/06/2025 7:13 AM [facility] Eosinophils Absolute 0.00 0.00 - 0.50 [facility] HEMETOLOGY METHOD 02/06/2025 7:13 AM EDT [facility] Basophils Absolute 0.01 0.00 - 0.20 [facility] LAB HEMETOLOGY METHOD 02/06/2025 7:13 AM EDT [facility] Immature Granulocytes Absolute 0.09(H) 0.00 - 0.03 [facility] HEMETOLOGY METHOD 02/06/2025 7:13 AM EDT [facility] Blood Venous blood specimen / Unknown Venipuncture / Unknown 02/06/2025 5:54 AM EDT 02/06/2025 6:46 AM EDT Steven LINARES LAB BLOOD ORDERABLES Final Res ult Performing Organization Address [facility]/ZIP Co de Phone Number [facility] [address] [place] [address], [place] [phone] * SST tube (02/06/2025 5:51 AM EDT) Extra Tube Hold for add-ons. 02/06/2025 8:01 AM EDT [facility] Comment:Auto resulted. Blood Venous blood specimen / Unknown 02/06/2025 5:51 AM EDT 02/06/2025 6:46 AM EDT Darren Crain MD LAB BLOOD ORDERABLES Final Resu lt Performing Organization Address City/[facility]/ZIP Co de Phone Number [facility] [address] [place] [address], [place] [phone] * Tissue exam (02/05/2025 4:25 PM EDT) Final Diagnosis A. Gallbladder, cholecystectomy: - Acute cholecystitis and cholelithiasis. 02/07/2025 1:11 PM EDT [facility] Gross Description A. Gallbladder, : [...] green and the adventitia is inked black. Production Associate sections are submitted in one cassette including gallbladder (fundus, body and neck), duct margin (inked red), and cross-section adjacent to duct margin (inked black), five pieces. TS 02/07/2025 1:11 PM EDT [facility] Disclaimer Unless otherwise specified, all tissue is 10% NB formalin fixed and paraffin embedded. 02/07/2025 1:11 PM EDT [facility] Tissue Gallbladder structure / Unknown 02/05/2025 4:25 PM EDT 02/06/2025 5:15 AM EDT Darren Crain MD LAB PATHOLOGY ORDERABLES Final Result [facility] [address] [place] [address], * TH AN ENDOTRACHEAL(NO CHARGE) (02/05/2025 3:35 [...] at 5 days 02/10/2025 12:01 PM EDT [facility] Blood Venous blood specimen / Unknown Venipuncture / Unknown 02/05/2025 11:13 AM EDT 02/05/2025 11:19 AM EDT Nelson Rhoades MD LAB MICROBIOLOGY - GENERA L ORDERABLES Final Result [facility] [address] [place] [address], [place] [phone] * Lactate (02/05/2025 11:13 AM EDT) Lactate 1.5 0.4 - 2.0 mmol/L LAB CHEMISTRY METHOD 02/05/2025 12:08 PM EDT [facility] Blood Venous blood specimen / Unknown Venipuncture / Unknown 02/05/2025 11:13 AM EDT 02/05/2025 11:19 AM EDT Nelson Rhoades MD LAB BLOOD ORDERABLES Devorah l Result Performing Organization Address [facility] Co de Phone Number [facility] [address] [place] [address], * Troponin I high sensitivity (02/05/2025 9:31 AM EDT) Only the most recent of2 resultswithin the time period is included. [facility] High Sensitivity Troponin I 8 <=54 ng/L LAB CHEMISTRY METHOD 02/05/2025 10:14 AM EDT [facility] Blood Venous blood specimen / Unknown Venipuncture / Unknown 02/05/2025 9:31 AM EDT 02/05/2025 9:42 AM EDT Narrative [facility] - 02/05/2025 10:14 AM EDT High levels of biotin in samples may falsely decrease hsTroponin values. Use caution when interpreting hsTroponin results in patients taking biotin who exhibit renal impairment (eGFR <60) or in patients taking more than 20 mg/day of biotin. Yessi Larkin MD LAB BLOOD ORDERABLES Final Res ult Performing Organization Address [facility] Co de Phone Number [facility] [address] [place] [address], * ECG 12 lead (02/05/2025 8:17 AM EDT) Only the most recent of2 resultswithin the time period is included. [facility] Ventricular Rate ECG 66 BPM GEMUSE Atrial Rate 66 BPM GEMUSE P-R Interval 182 ms GEMUSE QRS Duration 76 ms GEMUSE Q-T Interval 398 ms GEMUSE QTc 417 ms GEMUSE R [place] -23 degrees GEMUSE T [place] 155 degrees GEMUSE ECG Interpretation Normal sinus [...] 4. Chronic hepatocellular disease/[place]ty [place] ([id number]) -------- FINAL REPORT -------- Dictated By: Isabela Perales Dictated Date: 02/05/2025 09:44 ET Assigned Physician: Isabela Perales Reviewed and Electronically Signed By: Isabela Perales Signed Date: 02/05/2025 09:50 ET Workstation ID: [id number] Transcribed By: Self Edit Transcribed Date: 02/05/2025 [...] 4. Chronic hepatocellular disease/fatty infiltration. [facility] [place] ([id number]) -------- FINAL REPORT -------- Dictated By: Isabela Perales Dictated Date: 02/05/2025 09:44 ET Assigned Physician: Isabela Perales Reviewed and Electronically Signed By: Isabela Perales Signed Date: 02/05/2025 09:50 ET Workstation ID: [id number] Transcribed By: Self Edit Transcribed Date: 02/05/2025 09:44 ET Nelson Rhoades MD IMG US PROCEDURES Final R esult * B-type natriuretic peptide (02/05/2025 7:31 AM EDT) BNP 11 <=100 pcg/mL LAB CHEMISTRY METHOD 02/05/2025 8:36 AM EDT [facility] Blood Venous blood specimen / Unknown Venipuncture / Unknown 02/05/2025 7:31 AM EDT 02/05/2025 7:51 AM EDT Yessi Larkin MD LAB BLOOD ORDERABLES Final Res ult [facility] [address] [place] [address], [place] [phone] * Magnesium (02/05/2025 7:31 AM EDT) Magnesium 2.2 1.9 - 2.6 mg/dL LAB CHEMISTRY METHOD 02/05/2025 8:21 AM EDT [facility] Blood Venous blood specimen / Unknown Venipuncture / Unknown 02/05/2025 7:31 AM EDT 02/05/2025 7:51 AM EDT Yessi Larkin MD LAB BLOOD ORDERABLES Final Res ult Performing Organization Address [facility]/ZIP Co de Phone Number [facility] [address] [place] [address], * Lipase (02/05/2025 7:31 AM EDT) Lipase 49 13 - 75 unit/L LAB CHEMISTRY METHOD 02/05/2025 8:21 AM EDT [facility] Blood Venous blood specimen / Unknown Venipuncture / Unknown 02/05/2025 7:31 AM EDT 02/05/2025 7:51 AM EDT Yessi Larkin MD LAB BLOOD ORDERABLES Final Res ult Performing Organization Address [facility]/ZIP Co de Phone Number [facility] [address] [place] [address], [place] [phone] * (ABNORMAL) Comprehensive metabolic panel (02/05/2025 7:31 AM EDT) Pathologist [facility] Sodium 137 133 - 145 mmol/L LAB CHEMISTRY METHOD 02/05/2025 8:21 AM [facility] Potassium 3.9 3.5 - 5.5 mmol/L LAB CHEMISTRY METHOD 02/05/2025 8:21 AM [facility] Chloride 106 96 - 110 mmol/L LAB CHEMISTRY METHOD 02/05/2025 8:21 AM [facility] CO2 27 21 - 32 mmol/L LAB CHEMISTRY METHOD 02/05/2025 8:21 AM [facility] Anion Gap 4 3 - 11 LAB CHEMISTRY METHOD 02/05/2025 8:21 AM [facility] Glucose 149(H) 70 - 100 mg/dL LAB CHEMISTRY METHOD 02/05/2025 8:21 AM [facility] BUN 23 5 - 25 mg/dL LAB CHEMISTRY METHOD 02/05/2025 8:21 AM [facility] Creatinine 1.03 0.50 - 1.10 mg/dL LAB CHEMISTRY METHOD 02/05/2025 8:21 AM [facility] eGFR 64 >=60 mL/min/1. 73m2 LAB CHEMISTRY METHOD 02/05/2025 8:21 AM [facility] Comment:Calculation based on the Chronic Kidney Disease Epidemiology Collaboration (CKD-EPI) equation refit without adjustment for race. BUN/Creatinine Ratio 22.3 LAB CHEMISTRY METHOD 02/05/2025 8:21 AM [facility] Calcium 9.3 8.5 - 10.5 mg/dL LAB CHEMISTRY METHOD 02/05/2025 8:21 AM [facility] AST (SGOT) 12 10 - 42 unit/L LAB CHEMISTRY METHOD 02/05/2025 8:21 AM [facility] ALT (SGPT) 32 10 - 60 unit/L LAB CHEMISTRY METHOD 02/05/2025 8:21 AM [facility] Alkaline Phosphatase 63 42 - 121 unit/L LAB CHEMISTRY METHOD 02/05/2025 8:21 AM [facility] Total Protein 7.3 6.0 - 8.0 g/dL LAB CHEMISTRY METHOD 02/05/2025 8:21 AM [facility] Albumin 3.7 3.2 - 5.0 g/dL LAB CHEMISTRY METHOD 02/05/2025 8:21 AM [facility] Total Bilirubin 0.3 0.0 - 1.4 mg/dL LAB CHEMISTRY METHOD 02/05/2025 8:21 AM [facility] Blood Venous blood specimen / Unknown Venipuncture / Unknown 02/05/2025 7:31 AM EDT 02/05/2025 7:51 AM EDT us Yessi Larkin MD LAB BLOOD ORDERABLES Final Res ult [facility] [address] [place] [address], [place] [phone] from Last 3 Months Insurance MEDICAID - [place] [facility] [employer] Care Teams Getter Operator Relationship Specialty Start Date End Date Physician, Pcp Unknown PCP - General 02/05/25
== END 2025-05-06 09:03 | disposition home or self-care (01) ==
LOC: HO.XRAY 09:02
PROVIDERS: PCP Internal Medicine; Visit Provider Internal Medicine
DX: M79.644 Pain in right finger(s) (principal); M25.441 Effusion, right hand; R60.0 Localized edema
CPT/HCPCS: 73140

== ENCOUNTER → 2025-05-06 09:08 | Outpatient (BNV) | payer OTHER, SELFPAY | PROVIDERS: PCP Internal Medicine; Visit Provider Radiology Diagnostic Radiology | DX: M25.441 Effusion, right hand (principal) | CPT/HCPCS: 73140 ==

== ENCOUNTER 2025-06-16 08:32 | Outpatient (REF) | payer OTHER, SELFPAY ==
[2025-06-16 09:39] LABS: Appearance Urine Cloudy; Glucose Urine UA >=1000 mg/dL (Negative); PH 5.0 (5.0-9.0); Specific Gravity - Urine >= 1.030 (1.005-1.025); UMIC TRIGGER UACC YES
[2025-06-16 10:16] LABS: Uric Acid 4.7 mg/dL (2.4-5.7)
== END 2025-06-16 08:33 | disposition home or self-care (01) ==
LOC: HO.LAB 08:32
PROVIDERS: PCP Internal Medicine; Visit Provider Internal Medicine
DX: Z01.84 Encounter for antibody response examination (principal); M15.4 Erosive (osteo)arthritis; M25.50 Pain in unspecified joint; R30.0 Dysuria
CPT/HCPCS: 36415; 81001; 84550; 85652; 86038; 86140; 86200; 86431